=== PATIENT | male | born 1945 | race Caucasian/White ===

== ENCOUNTER → 2016-05-11 | Outpatient (CLI) | payer OTHER ==
[2016-05-11 12:23] LABS: ALT/SGPT 21 U/L (12-78); AST/SGOT 18 U/L (15-37); BLOOD UREA NITROGEN 20 mg/dl (7-18); BUN/CREATININE RATIO 16.3 (10-20); CALCIUM 8.7 mg/dl (8.5-10.1); CARBON DIOXIDE 27 mmol/L (21-32); CHLORIDE 106 mmol/L (98-107); CHOLESTEROL 225 mg/dl (0-200); CHOLESTEROL/HDL RATIO 5.6; GLUCOSE 89 mg/dl (70-99); HDL CHOLESTEROL 40 mg/dl; LDL CHOLESTEROL CALCULATED 157 mg/dl; POTASSIUM 4.3 mmol/L (3.5-5.1); SODIUM 140 mmol/L (136-145); TRIGLYCERIDES 139 mg/dl (0-150); VERY LOW DENSITY LIPOPROT CALC 28 mg/dl
== END | disposition home or self-care (01) ==
LOC: C.LAB1850 10:44
PROVIDERS: ATTEND Internal Medicine
DX: E78.5 Hyperlipidemia, unspecified (principal); Z12.5 Encounter for screening for malignant neoplasm of prostate; E03.9 Hypothyroidism, unspecified; I10 Essential (primary) hypertension

== ENCOUNTER → 2017-01-08 | Outpatient (CLI) | payer OTHER ==
[2017-01-08 12:26] LABS: ALT/SGPT 26 U/L (12-78); BLOOD UREA NITROGEN 21 mg/dl (7-18); BUN/CREATININE RATIO 19.8 (10-20); CALCIUM 8.8 mg/dl (8.5-10.1); CARBON DIOXIDE 26 mmol/L (21-32); CHLORIDE 106 mmol/L (98-107); CREATININE 1.07 mg/dl (0.60-1.40); GLUCOSE 95 mg/dl (70-99); HDL CHOLESTEROL 33 mg/dl; POTASSIUM 4.5 mmol/L (3.5-5.1); SODIUM 138 mmol/L (136-145)
[2017-01-08 12:38] LABS: AST/SGOT 12 U/L (15-37); CHOLESTEROL 255 mg/dl (0-200); CHOLESTEROL/HDL RATIO 7.7; LDL CHOLESTEROL CALCULATED 147 mg/dl; TRIGLYCERIDES 374 mg/dl (0-150); VERY LOW DENSITY LIPOPROT CALC 75 mg/dl
== END | disposition home or self-care (01) ==
LOC: C.LAB1850 10:24
PROVIDERS: ATTEND Internal Medicine
DX: E03.9 Hypothyroidism, unspecified (principal); I10 Essential (primary) hypertension; E78.5 Hyperlipidemia, unspecified

== ENCOUNTER → 2017-06-07 | Outpatient (CLI) | payer OTHER ==
[2017-06-07 12:50] LABS: ALT/SGPT 33 U/L (12-78); AST/SGOT 21 U/L (15-37); BLOOD UREA NITROGEN 18 mg/dl (7-18); CALCIUM 8.9 mg/dl (8.5-10.1); CARBON DIOXIDE 25 mmol/L (21-32); CHOLESTEROL 284 mg/dl (0-200); GLUCOSE 94 mg/dl (70-99); SODIUM 137 mmol/L (136-145)
[2017-06-07 13:02] LABS: LDL CHOLESTEROL CALCULATED 202 mg/dl
== END | disposition home or self-care (01) ==
LOC: C.LAB1850 10:03
PROVIDERS: ATTEND Internal Medicine
DX: I10 Essential (primary) hypertension (principal); E03.9 Hypothyroidism, unspecified; E78.5 Hyperlipidemia, unspecified; Z12.5 Encounter for screening for malignant neoplasm of prostate

== ENCOUNTER → 2017-06-11 | Outpatient (CLI) | payer OTHER | END | disposition home or self-care (01) | LOC: C.LAB1850 15:46 | PROVIDERS: ATTEND Internal Medicine | DX: R35.0 Frequency of micturition (principal) ==

== ENCOUNTER 2019-05-14 16:11 | Inpatient (IN) ==
[2019-05-14] MEDS ORDERED: AZITHROMYCIN 500 MG in DEXTROSE 5% 250 ML IV ONE (16:31)
[2019-05-14] MEDS ORDERED: cefTRIAXone SODIUM 2,000 MG/70 ML BAG IV STA (16:31)
[2019-05-14] MEDS ORDERED: ALBUT/IPRATROP 3MG/0.5MG NEB 3 ML VIAL NEB STA (16:31)
[2019-05-14] MEDS ORDERED: SODIUM CHLORIDE 0.9% 1000ML 1,000 ML IV ONE (16:31)
--- NOTE | 2019-05-14 16:37 | Emergency Department Note ---
ED Visit Note Patient seen and examined in conjunction with Dr. Schwab. Please see his note for medical decision making. . Resident Activity Tracking Resident Involvement: Resident Care Provided Care Provided: Adult ED
--- NOTE | 2019-05-14 16:51 | XRay Report ---
SINGLE VIEW CHEST CLINICAL HISTORY: Sepsis FINDINGS: An AP, portable, upright chest radiograph is compared to study dated 06/12/2012. The examina tion is degraded by portable technique and patient rotation. The heart is enlarged. There is pulmonar y vascular congestion. Trace pleural effusions are identified. There are bibasilar airspace opacities , left greater than right. No pneumothorax is seen. The skeletal structures are osteopenic. The bony thorax is grossly intact. IMPRESSION: 1. Cardiomegaly with evidence of congestive failure. 2. Trace pleural effusions. 3. There are bibasilar airspace opacities which likely represent atelectasis. Correlate clinically fo r evidence of a superimposed infectious/inflammatory pneumonitis. ACT 112: Negative or not required by law. Electronically signed by: Miguel Roman M.D. 05/14/2019 4:50 PM
[2019-05-14 16:57] LABS: Basophils # (auto) 0.03 K/uL (0-0.2); Basophils % (auto) 0.2 %; Eosinophils # (auto) 0.04 K/uL (0-0.5); Eosinophils % (auto) 0.3 %; Hematocrit (blood only) 43.3 % (42-52); Hemoglobin 14.8 g/dL (14.0-18.0); Immature Granulocytes # (auto) 0.13 K/uL (0.00-0.02); Immature Granulocytes % (auto) 0.9 %; Lymphocytes # (auto) 2.45 K/uL (1.2-3.4); Lymphocytes % (auto) 16.5 %; Mean Corpuscular Hemoglobin 31.8 pg (25-34); Mean Corpuscular Hgb Conc 34.2 g/dL (32-36); Mean Corpuscular Volume 92.9 fL (80-100); Mean Platelet Volume 9.7 fL (7.4-10.4); Monocytes # (auto) 1.27 K/uL (0.11-0.59); Monocytes % (auto) 8.6 %; Neutrophils # (auto) 10.89 K/uL (1.4-6.5); Neutrophils % (auto) 73.5 %; Platelet Count 236 K/uL (130-400); RDW Coefficient of Variation 13.5 % (11.5-14.5); RDW Standard Deviation 45.8 fL (36.4-46.3); Red Blood Count 4.66 M/uL (4.7-6.1); White Blood Count 14.81 K/uL (4.8-10.8)
[2019-05-14 17:09] LABS: INR 1.1 (0.9-1.1); Partial Thromboplastin Ratio 1.1; Partial Thromboplastin Time 29.4 Seconds (21.0-31.0); Prothrombin Time 11.5 Seconds (9.0-12.0)
[2019-05-14 17:13] LABS: Alanine Aminotransferase 53 U/L (12-78); Albumin Level 2.9 gm/dl (3.4-5.0); Aspartate Aminotransferase 55 U/L (15-37); BUN Creatinine Ratio 21.4 (10-20); Blood Urea Nitrogen 24 mg/dl (7-18); Calcium 8.7 mg/dl (8.5-10.1); Carbon Dioxide 25 mmol/L (21-32); Chloride 102 mmol/L (98-107); Creatinine Clr Calc Pharmacy 63.1 ml/min; Est GFR (African American) 72.5; Est GFR (Non-African American) 62.6; Glucose 121 mg/dl (70-99); Magnesium 2.4 mg/dl (1.8-2.4); Potassium 3.9 mmol/L (3.5-5.1); Sodium 134 mmol/L (136-145)
[2019-05-14 17:18] LABS: Albumin Globulin Ratio 0.5 (0.9-2); Alkaline Phosphatase 130 U/L (45-117); Bilirubin,Total 1.1 mg/dl (0.2-1); Globulin 5.4 gm/dl (2.5-4.0); Total Protein 8.3 gm/dl (6.4-8.2); Troponin I < 0.015 ng/ml (0-0.045)
[2019-05-14 17:32] LABS: Influenza A virus by PCR Neg for Influ A (Neg); Influenza B virus by PCR Neg for Influ B (Neg)
[2019-05-14 17:54] LABS: Base Excess VBG -0.6 mEq/L; Oxygen Saturation VBG 90.5 %; pH VBG 7.47 (7.36-7.41)
[2019-05-14 20:14] LABS: Appearance Urine Cloudy (Clear); Bacteria Urine Automated Negative (Negative); Blood Urine 2+ (Negative); Color Urine Dark Yellow; Epithelial Cell Urine Auto 20-30 /lpf (0-5); Glucose Urine UA Negative (Negative); Ketones Urine Trace (Negative); Leukocyte Esterase Urine Negative (Negative); Nitrite Urine Positive (Negative); Protein Urine 2+ (Negative); RBC Urine Automated 0-4 /hpf (0-4); Specific Gravity Urine 1.035 (1.000-1.030); Urobilinogen Urine Negative (Negative)
[2019-05-14 20:30] LABS: Bilirubin Urine Negative (Negative); Ictotest Urine Negative (Negative)
[2019-05-14 20:34] LABS: Mucus Urine Present (None Prsent)
[2019-05-14] MEDS ORDERED: ACETAMINOPHEN 325 MG TAB PO PRN (21:05)
[2019-05-14] MEDS ORDERED: ALBUTEROL 0.083% NEBU SOLN 3 ML VIAL NEB PRN (21:05)
--- NOTE | 2019-05-14 21:06 | Emergency Department Note ---
Entered by Qing Landers acting as a scribe for Hugo Schwab DO History of Present Illness General Chief complaint: Cough Stated complaint: COUGH - FEVER - TREMBLES Time Seen by Provider: 05/14/19 16:17 Source: family History of Present Illness Provider complaint: cough Onset (ago): day(s) 5 Location: chest Pain Consistency: + other (worsening) Maximum Pain Intensity: 0 Relieved By: + none Associated symptoms: + fever/chills, + shortness of breath and + other (+sore throat) The patient is a 74 year old male who presents to the Emergency Room with complaints of worsening cough since Sunday and a fever since Sunday. The patient reports that the patient has been experiencing shortness of breath for the past 5-6 hours. She mentions that the patient has been complaining of a sore throat. She notes that the patient does not wear oxygen at home. She mentions that the patient has a history of [place] 3 years ago. Patient denies any other exacerbating or remitting factors. Home Medications Home Medications Medication Instructions Recorded Confirmed Type omega-3 acid ethyl esters 1 gram 1 cap PO DAILY cap 09/17/18 05/14/19 History capsule levothyroxine 75 mcg tablet 75 mcg PO DAILY #90 tab 05/05/19 05/14/19 Rx aspirin [Aspirin Low Dose] 81 mg PO DAILY 05/14/19 05/14/19 History Allergies Allergy/AdvReac Type Severity Reaction Status Date / Time pravastatin Allergy Mild Cramping Verified 05/05/19 11:04 of the Muscles Past Med/Surg History Medical History Atherosclerotic heart disease of [place] coronary artery without angina pectoris (Acute) Benign essential tremor (Acute) Hyperlipidemia (Acute) Hypertension (Acute) Hypothyroidism (Acute) Tremor (Acute) Surgical History Hx of appendectomy Hx of hernia repair Hx of transurethral resection of prostate Family History Mother Hypotension Benign essential tremor Family/Other Benign essential tremor Child Social History Preferred Language: Haitian Communication Tools: IPad Visual Impairment: No Limitations Hearing Ability: Normal marital status: Current Living Situation: Spouse current occupational status: retired Feels Safe at Home: Yes Smoking Status: Never smoker Second Hand Exposure: No ; Hx Alcohol Use: No Hx Substance Use: No Physical Activity Frequency: 1-2 Times per Week Seatbelt Use: always Review of Systems See HPI for pertinent positives & negatives. and A total of 10 systems reviewed and were otherwise negative Physical Exam Vital Signs Vital Signs - 24 hr 05/14/19 16:13 05/14/19 16:25 05/14/19 16:27 Temperature 36.8 C Temperature Source Oral Pulse Rate 102 H 97 H Pulse Rate [Right Finger] Pulse Rate from SpO2 Sensor 98 H Respiratory Rate 24 46 H Respiratory Effort / Characteristics Non-Labored Respiratory Depth Normal Blood Pressure 190/90 H 218/99 H Blood Pressure Mean 123 115 Pulse Oximetry 87 L 92 93 Oxygen Delivery Method Room Air Nasal Cannula Nasal Cannula Oxygen Flow Rate 3 3 Fraction of Inspired Oxygen Sepsis Recent Fever Within 48 Hours No Sepsis Action Taken by Nursing No Action Required 05/14/19 16:31 05/14/19 16:50 05/14/19 17:05 Temperature Temperature Source Pulse Rate 96 H Pulse Rate [Right Finger] 94 H 94 H Pulse Rate from SpO2 Sensor 96 H Respiratory Rate 34 H 28 H 26 H Respiratory Effort / Characteristics Spontaneous Accessory Muscle Use Short of Breath Spontaneous Short of Breath Respiratory Depth Blood Pressure 177/91 H Blood Pressure Mean 117 Pulse Oximetry 92 95 95 Oxygen Delivery Method Nasal Cannula High Flow Nasal Cannula High Flow Nasal Cannula Oxygen Flow Rate 3 40 40 Fraction of Inspired Oxygen 50 50 Sepsis Recent Fever Within 48 Hours Sepsis Action Taken by Nursing 05/14/19 17:27 05/14/19 17:30 05/14/19 18:01 Temperature Temperature Source Pulse Rate 88 89 82 Pulse Rate [Right Finger] Pulse Rate from SpO2 Sensor 91 H 93 H 84 Respiratory Rate 37 H 39 H 35 H Respiratory Effort / Characteristics Respiratory Depth Blood Pressure 149/82 H 152/85 H 150/75 H Blood Pressure Mean 107 106 93 Pulse Oximetry 93 93 93 Oxygen Delivery Method High Flow Nasal Cannula High Flow Nasal Cannula Oxygen Flow Rate 40 Fraction of Inspired Oxygen Sepsis Recent Fever Within 48 Hours Sepsis Action Taken by Nursing 05/14/19 18:32 05/14/19 19:01 05/14/19 19:30 Temperature Temperature Source Pulse Rate 79 79 74 Pulse Rate [Right Finger] Pulse Rate from SpO2 Sensor 80 80 75 Respiratory Rate 27 H 51 H 38 H Respiratory Effort / Characteristics Respiratory Depth Blood Pressure 143/75 H 158/86 H 146/79 H Blood Pressure Mean 111 115 109 Pulse Oximetry 93 94 93 Oxygen Delivery Method High Flow Nasal Cannula High Flow Nasal Cannula Oxygen Flow Rate 30 30 Fraction of Inspired Oxygen Sepsis Recent Fever Within 48 Hours Sepsis Action Taken by Nursing 05/14/19 20:00 05/14/19 20:06 05/14/19 20:30 Temperature Temperature Source Pulse Rate 80 80 Pulse Rate [Right Finger] 81 Pulse Rate from SpO2 Sensor 81 81 Respiratory Rate 50 H 22 39 H Respiratory Effort / Characteristics Non-Labored Spontaneous Respiratory Depth Blood Pressure 150/88 H 153/76 H Blood Pressure Mean 108 93 Pulse Oximetry 94 94 93 Oxygen Delivery Method High Flow Nasal Cannula High Flow Nasal Cannula Oxygen Flow Rate 30 30 Fraction of Inspired Oxygen 40 Sepsis Recent Fever Within 48 Hours Sepsis Action Taken by Nursing GENERAL: alert, sitting up in bed, moderate distress, dyspneic EYE EXAM: normal conjunctiva OROPHARYNX: no exudate, no erythema, lips, buccal mucosa, and tongue normal and mucous membranes are moist NECK: supple, no nuchal rigidity, no adenopathy, non-tender LUNGS: Rhonchi in bilateral bases. Normal chest wall mechanics HEART: Tachycardic, S1 normal and S2 normal ABDOMEN: abdomen soft, non-tender, normo-active bowel sounds, no masses, no rebound or guarding. BACK: Back is symmetrical on inspection and there is no deformity, no midline tenderness, no CVA tenderness. SKIN: no rashes and no bruising UPPER EXTREMITIES: upper extremities are grossly normal. LOWER EXTREMITIES: No pitting edema. NEURO EXAM: Normal sensorium, cranial nerves II-XII grossly intact, normal speech, no gross weakness of arms, no gross weakness of legs. Course Course ED COURSE: Vital signs were reviewed and showed hypertensive and tachycardic. The patients medical record was reviewed The above diagnostic studies were performed and reviewed. ED treatments and interventions as stated above. 1619: The patient was seen and evaluated by the Resident Physician, Dr. Flores, at this time. History and physical were discussed with me. 1639: The patient was evaluated in room A3. A complete history and physical examination was performed. 1738: I reviewed the patient's case with Dr. Snell- [facility]. She will evaluate the patient for further management. 1745: Upon reevaluation, the patient is resting comfortable. I discussed my findings with the patient's and she understands and agrees with the treatment plan. Based on the patients age, coexisting illnesses, exam and lab findings the decision to treat as an inpatient was made. The patient remained stable while under my care. The patient will be evaluated for further management. Administered Medications Discontinued Medications Albuterol (Duoneb) 3 ml NEB NOW STA Stop: 05/14/19 16:32 Last Admin: 05/14/19 17:02 Dose: 3 ml Documented by: [id number] Sodium Chloride (Nss 1000ml) 1,000 mls @ 999 mls/hr IV .Q1H1M ONE Stop: 05/14/19 17:31 Last Admin: 05/14/19 17:41 Dose: Not Given Documented by: [id number] Ceftriaxone Sodium (Rocephin) 2,000 mg in 70 mls @ 140 mls/hr IV NOW STA Stop: 05/14/19 17:00 Last Infusion: 05/14/19 17:39 Dose: 0 mls/hr Documented by: [id number] Admin: 05/14/19 17:11 Dose: 140 mls/hr Documented by: [id number] Azithromycin 500 mg/ Dextrose 255 mls @ 125 mls/hr IV ONE ONE Stop: 05/14/19 18:33 Last Infusion: 05/14/19 20:19 Dose: 0 mls/hr Documented by: [id number] Admin: 05/14/19 17:41 Dose: 125 mls/hr Documented by: [id number] Critical Care Time Critical Care Time: Yes Total Critical Care Time: 40 I have personally spent 40 minutes of critical care time in the direct management of this patient. This includes bedside care, interpretation of diagnostic studies, and testing, discussion with consultants, patient, and family members, and other required patient management activities. This 40 minutes is in excess of all separately billable procedures. Medical Decision Making Differential Diagnosis Differential diagnoses includes but is not limited to pneumonia, bronchitis, COPD/Asthma exacerbation, pneumothorax, pulmonary embolism, congestive heart failure, acute coronary syndrome Medical Records Attestation: I reviewed the patient's medical records. Home Medications Current Medication List: was personally reviewed by me Laboratory Data Attestation: I reviewed the patient's lab results. Result diagrams: 05/14/19 16:40 05/14/19 16:40 Lab Results 05/14/19 05/14/19 05/14/19 Range/Units 16:39 16:40 16:40 WBC 14.81 H (4.8-10.8) K/uL RBC 4.66 L (4.7-6.1) M/uL Hgb 14.8 (14.0-18.0) g/dL Hct 43.3 (42-52) % MCV 92.9 (80-100) fL MCH 31.8 (25-34) pg MCHC 34.2 (32-36) g/dL RDW Std Deviation 45.8 (36.4-46.3) fL RDW Coeff of Mata 13.5 (11.5-14.5) % Plt Count 236 (130-400) K/uL MPV 9.7 (7.4-10.4) fL Immature Gran % (Auto) 0.9 % Neut % (Auto) 73.5 % Lymph % (Auto) 16.5 % Walsh % (Auto) 8.6 % Eos % (Auto) 0.3 % Baso % (Auto) 0.2 % Immature Gran # (Auto) 0.13 H (0.00-0.02) K/uL Neut # (Auto) 10.89 H (1.4-6.5) K/uL Lymph # (Auto) 2.45 (1.2-3.4) K/uL Walsh # (Auto) 1.27 H (0.11-0.59) K/uL Eos # (Auto) 0.04 (0-0.5) K/uL Baso # (Auto) 0.03 (0-0.2) K/uL PT 11.5 (9.0-12.0) Seconds INR 1.1 (0.9-1.1) APTT 29.4 (21.0-31.0) Seconds PTT Ratio 1.1 VBG pH (7.36-7.41) VBG pCO2 (38-50) mmHg VBG pO2 mmHg VBG HCO3 mmol/L VBG O2 Saturation % VBG Base Excess mEq/L Barometric Pressure mm/Hg Sodium (136-145) mmol/L Potassium (3.5-5.1) mmol/L Chloride (98-107) mmol/L Carbon Dioxide (21-32) mmol/L Anion Gap (3-11) BUN (7-18) mg/dl Creatinine (0.6-1.4) mg/dl Est Cr Clr Drug Dosing ml/min Est GFR ( Amer) Est GFR (Non-Af Amer) BUN/Creatinine Ratio (10-20) Glucose (70-99) mg/dl Lactate (0.4-2.0) mmol/L Calcium (8.5-10.1) mg/dl Magnesium (1.8-2.4) mg/dl Total Bilirubin (0.2-1) mg/dl AST (15-37) U/L ALT (12-78) U/L Alkaline Phosphatase (45-117) U/L Troponin I (0-0.045) ng/ml NT-Pro-B Natriuret Pep (0-900) pg/ml Total Protein (6.4-8.2) gm/dl Albumin (3.4-5.0) gm/dl Globulin (2.5-4.0) gm/dl Albumin/Globulin Ratio (0.9-2) Procalcitonin (0-0.5) ng/ml Urine Color Urine Appearance (Clear) Urine pH (4.5-7.5) Ur Specific [place] (1.000-1.030) Urine Protein (Negative) Urine Glucose (UA) (Negative) Urine Ketones (Negative) Urine Blood (Negative) Urine Nitrite (Negative) Urine Bilirubin (Negative) Urine Urobilinogen (Negative) Ur Leukocyte Esterase (Negative) Urine WBC (Auto) (0-5) /hpf Urine RBC (Auto) (0-4) /hpf U Hyaline Cast (Auto) (0-5) /lpf U Epithel Cells (Auto) (0-5) /lpf Urine Bacteria (Auto) (Negative) Granular Casts (0) /lpf Urine Mucus (None Prsent) Urine Yeast Influenza Type A (PCR) Neg for Influ A (Neg) Influenza Type B (PCR) Neg for Influ B (Neg) 05/14/19 05/14/19 05/14/19 Range/Units 16:40 16:40 16:40 WBC (4.8-10.8) K/uL RBC (4.7-6.1) M/uL Hgb (14.0-18.0) g/dL Hct (42-52) % MCV (80-100) fL MCH (25-34) pg MCHC (32-36) g/dL RDW Std Deviation (36.4-46.3) fL RDW Coeff of Mata (11.5-14.5) % Plt Count (130-400) K/uL MPV (7.4-10.4) fL Immature Gran % (Auto) % Neut % (Auto) % Lymph % (Auto) % Walsh % (Auto) % Eos % (Auto) % Baso % (Auto) % Immature Gran # (Auto) (0.00-0.02) K/uL Neut # (Auto) (1.4-6.5) K/uL Lymph # (Auto) (1.2-3.4) K/uL Walsh # (Auto) (0.11-0.59) K/uL Eos # (Auto) (0-0.5) K/uL Baso # (Auto) (0-0.2) K/uL PT (9.0-12.0) Seconds INR (0.9-1.1) APTT (21.0-31.0) Seconds PTT Ratio VBG pH (7.36-7.41) VBG pCO2 (38-50) mmHg VBG pO2 mmHg VBG HCO3 mmol/L VBG O2 Saturation % VBG Base Excess mEq/L Barometric Pressure mm/Hg Sodium 134 L (136-145) mmol/L Potassium 3.9 (3.5-5.1) mmol/L Chloride 102 (98-107) mmol/L Carbon Dioxide 25 (21-32) mmol/L Anion Gap 7.0 (3-11) BUN 24 H (7-18) mg/dl Creatinine 1.14 (0.6-1.4) mg/dl Est Cr Clr Drug Dosing 63.1 ml/min Est GFR ( Amer) 72.5 Est GFR (Non-Af Amer) 62.6 BUN/Creatinine Ratio 21.4 H (10-20) Glucose 121 H (70-99) mg/dl Lactate 2.1 H* (0.4-2.0) mmol/L Calcium 8.7 (8.5-10.1) mg/dl Magnesium 2.4 (1.8-2.4) mg/dl Total Bilirubin 1.1 H (0.2-1) mg/dl AST 55 H (15-37) U/L ALT 53 (12-78) U/L Alkaline Phosphatase 130 H (45-117) U/L Troponin I < 0.015 (0-0.045) ng/ml NT-Pro-B Natriuret Pep 540 (0-900) pg/ml Total Protein 8.3 H (6.4-8.2) gm/dl Albumin 2.9 L (3.4-5.0) gm/dl Globulin 5.4 H (2.5-4.0) gm/dl Albumin/Globulin Ratio 0.5 L (0.9-2) Procalcitonin (0-0.5) ng/ml Urine Color Urine Appearance (Clear) Urine pH (4.5-7.5) Ur Specific [place] (1.000-1.030) Urine Protein (Negative) Urine Glucose (UA) (Negative) Urine Ketones (Negative) Urine Blood (Negative) Urine Nitrite (Negative) Urine Bilirubin (Negative) Urine Urobilinogen (Negative) Ur Leukocyte Esterase (Negative) Urine WBC (Auto) (0-5) /hpf Urine RBC (Auto) (0-4) /hpf U Hyaline Cast (Auto) (0-5) /lpf U Epithel Cells (Auto) (0-5) /lpf Urine Bacteria (Auto) (Negative) Granular Casts (0) /lpf Urine Mucus (None Prsent) Urine Yeast Influenza Type A (PCR) (Neg) Influenza Type B (PCR) (Neg) 05/14/19 05/14/19 05/14/19 Range/Units 16:40 17:38 19:12 WBC (4.8-10.8) K/uL RBC (4.7-6.1) M/uL Hgb (14.0-18.0) g/dL Hct (42-52) % MCV (80-100) fL MCH (25-34) pg MCHC (32-36) g/dL RDW Std Deviation (36.4-46.3) fL RDW Coeff of Mata (11.5-14.5) % Plt Count (130-400) K/uL MPV (7.4-10.4) fL Immature Gran % (Auto) % Neut % (Auto) % Lymph % (Auto) % Walsh % (Auto) % Eos % (Auto) % Baso % (Auto) % Immature Gran # (Auto) (0.00-0.02) K/uL Neut # (Auto) (1.4-6.5) K/uL Lymph # (Auto) (1.2-3.4) K/uL Walsh # (Auto) (0.11-0.59) K/uL Eos # (Auto) (0-0.5) K/uL Baso # (Auto) (0-0.2) K/uL PT (9.0-12.0) Seconds INR (0.9-1.1) APTT (21.0-31.0) Seconds PTT Ratio VBG pH 7.47 H (7.36-7.41) VBG pCO2 31 L (38-50) mmHg VBG pO2 55 mmHg VBG HCO3 22 mmol/L VBG O2 Saturation 90.5 % VBG Base Excess -0.6 mEq/L Barometric Pressure 740.1 mm/Hg Sodium (136-145) mmol/L Potassium (3.5-5.1) mmol/L Chloride (98-107) mmol/L Carbon Dioxide (21-32) mmol/L Anion Gap (3-11) BUN (7-18) mg/dl Creatinine (0.6-1.4) mg/dl Est Cr Clr Drug Dosing ml/min Est GFR ( Amer) Est GFR (Non-Af Amer) BUN/Creatinine Ratio (10-20) Glucose (70-99) mg/dl Lactate 2.5 H* (0.4-2.0) mmol/L Calcium (8.5-10.1) mg/dl Magnesium (1.8-2.4) mg/dl Total Bilirubin (0.2-1) mg/dl AST (15-37) U/L ALT (12-78) U/L Alkaline Phosphatase (45-117) U/L Troponin I (0-0.045) ng/ml NT-Pro-B Natriuret Pep (0-900) pg/ml Total Protein (6.4-8.2) gm/dl Albumin (3.4-5.0) gm/dl Globulin (2.5-4.0) gm/dl Albumin/Globulin Ratio (0.9-2) Procalcitonin 0.84 H (0-0.5) ng/ml Urine Color Urine Appearance (Clear) Urine pH (4.5-7.5) Ur Specific [place] (1.000-1.030) Urine Protein (Negative) Urine Glucose (UA) (Negative) Urine Ketones (Negative) Urine Blood (Negative) Urine Nitrite (Negative) Urine Bilirubin (Negative) Urine Urobilinogen (Negative) Ur Leukocyte Esterase (Negative) Urine WBC (Auto) (0-5) /hpf Urine RBC (Auto) (0-4) /hpf U Hyaline Cast (Auto) (0-5) /lpf U Epithel Cells (Auto) (0-5) /lpf Urine Bacteria (Auto) (Negative) Granular Casts (0) /lpf Urine Mucus (None Prsent) Urine Yeast Influenza Type A (PCR) (Neg) Influenza Type B (PCR) (Neg) 05/14/19 Range/Units 19:55 WBC (4.8-10.8) K/uL RBC (4.7-6.1) M/uL Hgb (14.0-18.0) g/dL Hct (42-52) % MCV (80-100) fL MCH (25-34) pg MCHC (32-36) g/dL RDW Std Deviation (36.4-46.3) fL RDW Coeff of Mata (11.5-14.5) % Plt Count (130-400) K/uL MPV (7.4-10.4) fL Immature Gran % (Auto) % Neut % (Auto) % Lymph % (Auto) % Walsh % (Auto) % Eos % (Auto) % Baso % (Auto) % Immature Gran # (Auto) (0.00-0.02) K/uL Neut # (Auto) (1.4-6.5) K/uL Lymph # (Auto) (1.2-3.4) K/uL Walsh # (Auto) (0.11-0.59) K/uL Eos # (Auto) (0-0.5) K/uL Baso # (Auto) (0-0.2) K/uL PT (9.0-12.0) Seconds INR (0.9-1.1) APTT (21.0-31.0) Seconds PTT Ratio VBG pH (7.36-7.41) VBG pCO2 (38-50) mmHg VBG pO2 mmHg VBG HCO3 mmol/L VBG O2 Saturation % VBG Base Excess mEq/L Barometric Pressure mm/Hg Sodium (136-145) mmol/L Potassium (3.5-5.1) mmol/L Chloride (98-107) mmol/L Carbon Dioxide (21-32) mmol/L Anion Gap (3-11) BUN (7-18) mg/dl Creatinine (0.6-1.4) mg/dl Est Cr Clr Drug Dosing ml/min Est GFR ( Amer) Est GFR (Non-Af Amer) BUN/Creatinine Ratio (10-20) Glucose (70-99) mg/dl Lactate (0.4-2.0) mmol/L Calcium (8.5-10.1) mg/dl Magnesium (1.8-2.4) mg/dl Total Bilirubin (0.2-1) mg/dl AST (15-37) U/L ALT (12-78) U/L Alkaline Phosphatase (45-117) U/L Troponin I (0-0.045) ng/ml NT-Pro-B Natriuret Pep (0-900) pg/ml Total Protein (6.4-8.2) gm/dl Albumin (3.4-5.0) gm/dl Globulin (2.5-4.0) gm/dl Albumin/Globulin Ratio (0.9-2) Procalcitonin (0-0.5) ng/ml Urine Color Dark Yellow Urine Appearance Cloudy A (Clear) Urine pH 5.0 (4.5-7.5) Ur Specific [place] 1.035 H (1.000-1.030) Urine Protein 2+ H (Negative) Urine Glucose (UA) Negative (Negative) Urine Ketones Trace H (Negative) Urine Blood 2+ H (Negative) Urine Nitrite Positive A (Negative) Urine Bilirubin Negative (Negative) Urine Urobilinogen Negative (Negative) Ur Leukocyte Esterase Negative (Negative) Urine WBC (Auto) 1-5 (0-5) /hpf Urine RBC (Auto) 0-4 (0-4) /hpf U Hyaline Cast (Auto) 1-5 (0-5) /lpf U Epithel Cells (Auto) 20-30 H (0-5) /lpf Urine Bacteria (Auto) Negative (Negative) Granular Casts 1-5 H (0) /lpf Urine Mucus Present A (None Prsent) Urine Yeast Not Reportable Influenza Type A (PCR) (Neg) Influenza Type B (PCR) (Neg) Imaging Data Radiologist's Impression: Radiology results as stated below per my review and the radiologist's interpretation: SINGLE VIEW CHEST CLINICAL HISTORY: Sepsis FINDINGS: An AP, portable, upright chest radiograph is compared to study dated 06/12/2012. The examination is degraded by portable technique and patient rotation. The heart is enlarged. There is pulmonary vascular congestion. Trace pleural effusions are identified. There are bibasilar airspace opacities, left greater than right. No pneumothorax is seen. The skeletal structures are osteopenic. The bony thorax is grossly intact. IMPRESSION: 1. Cardiomegaly with evidence of congestive failure. 2. Trace pleural effusions. 3. There are bibasilar airspace opacities which likely represent atelectasis. Correlate clinically for evidence of a superimposed infectious/inflammatory pneumonitis. ACT 112: Negative or not required by law. Electronically signed by: Miguel Roman M.D. 05/14/2019 4:50 PM ECG Data Attestation: I personally reviewed and interpreted this ECG as follows: Indication: + SOB/dyspnea Rate (beats per minute): 94 Rhythm: + sinus rhythm (poor baseline) ECG Intervals/blocks: + Right Bundle branch block ECG [place]: + Right axis deviation ECG Findings: no PVCs Blood Pressure Blood Pressure Findings: Elevated blood pressure Blood Pressure Disposition: further management by hospitalist FABIENNE Narrative Patient is a 74-year-old male who presents the ER for cough and shortness of b reath. Fevers and a cough have been present for the past 3 days. He has been getting more more short of breath. IV was established blood work was obtained and shows a leukocytosis of 14,000. No significant anemia. INR unremarkable. VBG with a CO2 slightly low at 31. BMP with a slightly elevated glucose. Lactate was elevated 2.5. Bilirubin LFTs were unremarkable. Patient was covered with broad-spectrum Rocephin and azithromycin as it did fever this is most consistent with a pneumonia. Chest x-ray does support slight volume overload in combination with pulmonary infiltrates consistent with a pneumonia. Influenza was negative. Patient was given judicious fluids due to the volume ov erload on the chest x-ray. Updated and discussed with the hospitalist. He was on high flow throughout his stay in the ER due to his respiratory distress. This did improve significantly. Impression & Plan Hypoxia, Pneumonia, CHF (congestive heart failure) Discharge Plan Visit Data Chief Complaint: Cough Stated Complaint: COUGH - FEVER - TREMBLES ED Provider: Hugo Schwab ED Midlevel Provider: Apolinar Flores Discharge Problem: Hypoxia, Pneumonia, CHF (congestive heart failure) Patient Disposition: Being Evaluated by Hospitalist Discharge Instructions Interventions: ED Discharge Assessment Last Done: 05/14/19 20:39 Discharge Problem: Pneumonia Qualifiers: Pneumonia type: due to unspecified organism Laterality: unspecified laterality Lung location: unspecified part of lung Qualified Code(s): J18.9 - Pneumonia, unspecified organism CHF (congestive heart failure) Qualifiers: Heart failure type: unspecified Heart failure chronicity: unspecified Qualified Code(s): I50.9 - Heart failure, unspecified The scribe's documentation has been prepared under my direction and personally reviewed by me in its entirety. I confirm that the note above accurately reflects all work, treatment, procedures, and medical decision making performed by me.
[2019-05-14] MEDS: guaiFENesin 600 MG TABCR PO SCH (21:53)
[2019-05-14] MEDS: BENZONATATE 100 MG CAPSULE PO SCH (21:53)
--- NOTE | 2019-05-14 22:07 | History & Physical Report ---
Date of Service May 14, 2019 Assessment & Plan (1) Pneumonia: 74-year-old male with hypertension/hyperlipidemia/CAD, no known lung disease or history of smoking. He presents today with 45 days of cough/cold/fever/chills, acute worsening of shortness of breath and rigors developed prior to admission today. Patient with respiratory distress on arrival to the ER requiring supplemental oxygen via Vapotherm. Strongly suspect infectious process, multifocal pneumonia. Patient with s ubjective fever/chills/rigors, tachycardia, tachypnea, leukocytosis with WBC = 14.8 with neutrophil predominance and bands, elevated lactate = 2.5, elevated procalcitonin = 0.84. Influenza negative. VBG respiratory alkalosis and hypoxia, 7.4 10/23// on supplemental oxygen Portable chest x-ray with suspected cardiomegaly, diffuse bilateral airspace disease initially read as CHF (BNP = 540) -Admit to PCU -Follow cultures, blood and urine sent from ER Will initiate BiPAP for increased work of breathing, humidify O2 -Repeat ABG 1 hour after BiPAP Ceftriaxone 2 g IV daily, azithromycin for possible community-acquired pneumonia DuoNebs every 4 hours Albuterol as needed Mucinex 1200 mg p.o. twice daily Tessalon 3 times daily Incentive spirometry -Patient prognosis is guarded, low threshold for transfer to higher level of care Present on Admission?: Yes (2) Hypoxia: Most likely secondary to multifocal pneumonia as above BiPAP Repeat ABG in 1 hour Supplemental oxygen as needed. Titrate to maintain saturation greater than 94% Present on Admission?: Yes (3) Hypertension: Elevated blood pressure. Presently 156/72. Patient not presently on any medication for this. Continue to monitor. Patient's blood pressure spikes again will treat (4) Hyperlipidemia: Chronic. Patient presently not on any medication for this. Uncertain as to why Recommend outpatient follow-up Present on Admission?: Yes (5) Hypothyroidism: Patient with abnormal TFTs during previous visit -Repeat with a.m. 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 Stable. By report, patient had an NV 3 years ago. Presently denies chest pain. Troponin negative. No acute ischemic changes noted on EKG. Continue aspirin 81 mg p.o. daily Patient may benefit from statin and beta-randy therapy. Should be followed up outpatient Present on Admission?: Yes (7) Benign essential tremor: Chronic. F/E/N -normal saline at 125 mL/h x 1 L, monitor electrolytes and replete as needed, heart healthy diet as tolerated ProphylaxisLovenox Codeconditional Dispoadmit to PCU Present on Admission?: Yes History of Present Illness Chief Complaint: Shortness of breath Primary Care Provider: Kalyan Andrade MD Fidel Holden is a 74yo C male presenting with cough and SOB. Patient reports ongoing symptoms x 5 days to include cough/wheeze/SOB. Also with fevers to 38/39C and chills x 4 days. Cough is moist sounding but unable to produce sputum. Patient developed shaking chills today and worsening shortness of breath today which prompted him to come to the ER. He denies weight gain/edema/orthopnea Denies abdominal pain/nausea/vomiting but he did have some watery diarrhea over the last few days which has since resolved. No sick contacts or recent travel. On arrival to the ER patient afebrile, tachycardic at 102 bpm, hypertensive at 190/90, respiratory rate of 24 saturating 87% on room air. He was placed on nasal cannula 3 L with saturations of 92 to 93% and persistent tachypnea. He was subsequently placed on Vapotherm 30 L/min, FiO2 40%. Patient reports feeling better but is still visibly tachypneic. ER course: Ceftriaxone x2 g, azithromycin x500 mg, albuterol 3 mL neb Allergies Allergy/AdvReac Type Severity Reaction Status Date / Time pravastatin Allergy Mild Cramping Verified 05/05/19 11:04 of the Muscles Home Medications Home Medications Medication Instructions Recorded Confirmed Type omega-3 acid ethyl esters 1 gram 1 cap PO DAILY cap 09/17/18 05/14/19 History capsule levothyroxine 75 mcg tablet 75 mcg PO DAILY #90 tab 05/05/19 05/14/19 Rx aspirin [Aspirin Low Dose] 81 mg PO DAILY 05/14/19 05/14/19 History Past Med/Surg History Family History Mother Hypotension Benign essential tremor Family/Other Benign essential tremor Child Social History Preferred Language: Citizen Of [place] Communication Ability: Effective Communication Tools: IPad Visual Impairment: No Limitations Hearing Ability: Normal Esol Instructor Required: No Beliefs That Will Affect Care: None marital status: Current Living Situation: Spouse current occupational status: retired Feels Safe at Home: Yes Safety Concerns: Feels Safe At This Time Smoking Status: Never smoker Do You Dip or Chew Tobacco: No ; Second Hand Exposure: No ; Hx Alcohol Use: No Hx Substance Use: No Physical Activity Frequency: 1-2 Times per Week Seatbelt Use: always Review of Systems Review of Systems: All systems reviewed & are unremarkable except as noted in HPI & below Physical Exam Physical Exam: General: patient ill in appearance, speaks dominantly Citizen Of [place], awake alert and oriented x4, communicating clearly and following commands, is at bedside and assists with interpretation, resting tremor at baseline per Skin: warm, dry, intact, no rashes or lesions HEENT: NC/AT, PERRL, EOMI, anicteric sclera, conjunctiva without injection, external ear normal to inspection and nontender, nares patent, moist mucus membranes, dentition intact, no oropharyngeal lesions, neck supple, trachea midline, no LAD, no thyromegaly, no JVD Heart: +S1/S2, regular, no m/r/g Lungs: Diminished air entry bilaterally, diffusely coarse with scattered rhonchi in bilateral lung laguerre, diffuse end expiratory wheezing Abd: +BS, soft, NT/ND, no masses/organomegaly/ascites Ext: warm, 2+ pulses in UE/LE bilaterally, no clubbing/cyanosis or edema Neuro: nonfocal, patient AA&O x 4, speech intact, no facial droop, moving all extremities on command with equal strength 5/5 Results & Data Vital Signs (Past 12 Hours) Vital Signs Temp Pulse Pulse Resp BP BP BP 05/14/19 21:06 36.6 C 99 H 48 H 236/94 H 203/94 H 05/14/19 20:30 80 39 H 153/76 H 05/14/19 20:06 81 22 05/14/19 20:00 80 50 H 150/88 H 05/14/19 19:30 74 38 H 146/79 H 05/14/19 19:01 79 51 H 158/86 H 05/14/19 18:32 79 27 H 143/75 H 05/14/19 18:01 82 35 H 150/75 H 05/14/19 17:30 89 39 H 152/85 H 05/14/19 17:27 88 37 H 149/82 H 05/14/19 17:05 94 H 26 H 05/14/19 16:50 94 H 28 H 05/14/19 16:31 96 H 34 H 177/91 H 05/14/19 16:27 05/14/19 16:25 97 H 46 H 218/99 H 05/14/19 16:13 36.8 C 102 H 24 190/90 H Pulse Ox 05/14/19 21:06 93 05/14/19 20:30 93 05/14/19 20:06 94 05/14/19 20:00 94 05/14/19 19:30 93 05/14/19 19:01 94 05/14/19 18:32 93 05/14/19 18:01 93 05/14/19 17:30 93 05/14/19 17:27 93 05/14/19 17:05 95 05/14/19 16:50 95 05/14/19 16:31 92 05/14/19 16:27 93 05/14/19 16:25 92 05/14/19 16:13 87 L Laboratory Results Lab Results 05/14/19 05/14/19 05/14/19 Range/Units 16:39 16:40 16:40 WBC 14.81 H (4.8-10.8) K/uL RBC 4.66 L (4.7-6.1) M/uL Hgb 14.8 (14.0-18.0) g/dL Hct 43.3 (42-52) % MCV 92.9 (80-100) fL MCH 31.8 (25-34) pg MCHC 34.2 (32-36) g/dL RDW Std Deviation 45.8 (36.4-46.3) fL RDW Coeff of Mata 13.5 (11.5-14.5) % Plt Count 236 (130-400) K/uL MPV 9.7 (7.4-10.4) fL Immature Gran % (Auto) 0.9 % Neut % (Auto) 73.5 % Lymph % (Auto) 16.5 % [place] % (Auto) 8.6 % Eos % (Auto) 0.3 % Baso % (Auto) 0.2 % Immature Gran # (Auto) 0.13 H (0.00-0.02) K/uL Neut # (Auto) 10.89 H (1.4-6.5) K/uL Lymph # (Auto) 2.45 (1.2-3.4) K/uL [place] # (Auto) 1.27 H (0.11-0.59) K/uL Eos # (Auto) 0.04 (0-0.5) K/uL Baso # (Auto) 0.03 (0-0.2) K/uL PT 11.5 (9.0-12.0) Seconds INR 1.1 (0.9-1.1) APTT 29.4 (21.0-31.0) Seconds PTT Ratio 1.1 VBG pH (7.36-7.41) VBG pCO2 (38-50) mmHg VBG pO2 mmHg VBG HCO3 mmol/L VBG O2 Saturation % VBG Base Excess mEq/L Barometric Pressure mm/Hg Sodium (136-145) mmol/L Potassium (3.5-5.1) mmol/L Chloride (98-107) mmol/L Carbon Dioxide (21-32) mmol/L Anion Gap (3-11) BUN (7-18) mg/dl Creatinine (0.6-1.4) mg/dl Est Cr Clr Drug Dosing ml/min Est GFR ( Amer) Est GFR (Non-Af Amer) BUN/Creatinine Ratio (10-20) Glucose (70-99) mg/dl Lactate (0.4-2.0) mmol/L Calcium (8.5-10.1) mg/dl Magnesium (1.8-2.4) mg/dl Total Bilirubin (0.2-1) mg/dl AST (15-37) U/L ALT (12-78) U/L Alkaline Phosphatase (45-117) U/L Troponin I (0-0.045) ng/ml NT-Pro-B Natriuret Pep (0-900) pg/ml Total Protein (6.4-8.2) gm/dl Albumin (3.4-5.0) gm/dl Globulin (2.5-4.0) gm/dl Albumin/Globulin Ratio (0.9-2) Procalcitonin (0-0.5) ng/ml Urine Color Urine Appearance (Clear) Urine pH (4.5-7.5) Ur Specific [place] (1.000-1.030) Urine Protein (Negative) Urine Glucose (UA) (Negative) Urine Ketones (Negative) Urine Blood (Negative) Urine Nitrite (Negative) Urine Bilirubin (Negative) Urine Urobilinogen (Negative) Ur Leukocyte Esterase (Negative) Urine WBC (Auto) (0-5) /hpf Urine RBC (Auto) (0-4) /hpf U Hyaline Cast (Auto) (0-5) /lpf U Epithel Cells (Auto) (0-5) /lpf Urine Bacteria (Auto) (Negative) Granular Casts (0) /lpf Urine Mucus (None Prsent) Urine Yeast Influenza Type A (PCR) Neg for Influ A (Neg) Influenza Type B (PCR) Neg for Influ B (Neg) 05/14/19 05/14/19 05/14/19 Range/Units 16:40 16:40 16:40 WBC (4.8-10.8) K/uL RBC (4.7-6.1) M/uL Hgb (14.0-18.0) g/dL Hct (42-52) % MCV (80-100) fL MCH (25-34) pg MCHC (32-36) g/dL RDW Std Deviation (36.4-46.3) fL RDW Coeff of Mata (11.5-14.5) % Plt Count (130-400) K/uL MPV (7.4-10.4) fL Immature Gran % (Auto) % Neut % (Auto) % Lymph % (Auto) % [place] % (Auto) % Eos % (Auto) % Baso % (Auto) % Immature Gran # (Auto) (0.00-0.02) K/uL Neut # (Auto) (1.4-6.5) K/uL Lymph # (Auto) (1.2-3.4) K/uL [place] # (Auto) (0.11-0.59) K/uL Eos # (Auto) (0-0.5) K/uL Baso # (Auto) (0-0.2) K/uL PT (9.0-12.0) Seconds INR (0.9-1.1) APTT (21.0-31.0) Seconds PTT Ratio VBG pH (7.36-7.41) VBG pCO2 (38-50) mmHg VBG pO2 mmHg VBG HCO3 mmol/L VBG O2 Saturation % VBG Base Excess mEq/L Barometric Pressure mm/Hg Sodium 134 L (136-145) mmol/L Potassium 3.9 (3.5-5.1) mmol/L Chloride 102 (98-107) mmol/L Carbon Dioxide 25 (21-32) mmol/L Anion Gap 7.0 (3-11) BUN 24 H (7-18) mg/dl Creatinine 1.14 (0.6-1.4) mg/dl Est Cr Clr Drug Dosing 63.1 ml/min Est GFR ( Amer) 72.5 Est GFR (Non-Af Amer) 62.6 BUN/Creatinine Ratio 21.4 H (10-20) Glucose 121 H (70-99) mg/dl Lactate 2.1 H* (0.4-2.0) mmol/L Calcium 8.7 (8.5-10.1) mg/dl Magnesium 2.4 (1.8-2.4) mg/dl Total Bilirubin 1.1 H (0.2-1) mg/dl AST 55 H (15-37) U/L ALT 53 (12-78) U/L Alkaline Phosphatase 130 H (45-117) U/L Troponin I < 0.015 (0-0.045) ng/ml NT-Pro-B Natriuret Pep 540 (0-900) pg/ml Total Protein 8.3 H (6.4-8.2) gm/dl Albumin 2.9 L (3.4-5.0) gm/dl Globulin 5.4 H (2.5-4.0) gm/dl Albumin/Globulin Ratio 0.5 L (0.9-2) Procalcitonin (0-0.5) ng/ml Urine Color Urine Appearance (Clear) Urine pH (4.5-7.5) Ur Specific [place] (1.000-1.030) Urine Protein (Negative) Urine Glucose (UA) (Negative) Urine Ketones (Negative) Urine Blood (Negative) Urine Nitrite (Negative) Urine Bilirubin (Negative) Urine Urobilinogen (Negative) Ur Leukocyte Esterase (Negative) Urine WBC (Auto) (0-5) /hpf Urine RBC (Auto) (0-4) /hpf U Hyaline Cast (Auto) (0-5) /lpf U Epithel Cells (Auto) (0-5) /lpf Urine Bacteria (Auto) (Negative) Granular Casts (0) /lpf Urine Mucus (None Prsent) Urine Yeast Influenza Type A (PCR) (Neg) Influenza Type B (PCR) (Neg) 05/14/19 05/14/19 05/14/19 Range/Units 16:40 17:38 19:12 WBC (4.8-10.8) K/uL RBC (4.7-6.1) M/uL Hgb (14.0-18.0) g/dL Hct (42-52) % MCV (80-100) fL MCH (25-34) pg MCHC (32-36) g/dL RDW Std Deviation (36.4-46.3) fL RDW Coeff of Mata (11.5-14.5) % Plt Count (130-400) K/uL MPV (7.4-10.4) fL Immature Gran % (Auto) % Neut % (Auto) % Lymph % (Auto) % [place] % (Auto) % Eos % (Auto) % Baso % (Auto) % Immature Gran # (Auto) (0.00-0.02) K/uL Neut # (Auto) (1.4-6.5) K/uL Lymph # (Auto) (1.2-3.4) K/uL [place] # (Auto) (0.11-0.59) K/uL Eos # (Auto) (0-0.5) K/uL Baso # (Auto) (0-0.2) K/uL PT (9.0-12.0) Seconds INR (0.9-1.1) APTT (21.0-31.0) Seconds PTT Ratio VBG pH 7.47 H (7.36-7.41) VBG pCO2 31 L (38-50) mmHg VBG pO2 55 mmHg VBG HCO3 22 mmol/L VBG O2 Saturation 90.5 % VBG Base Excess -0.6 mEq/L Barometric Pressure 740.1 mm/Hg Sodium (136-145) mmol/L Potassium (3.5-5.1) mmol/L Chloride (98-107) mmol/L Carbon Dioxide (21-32) mmol/L Anion Gap (3-11) BUN (7-18) mg/dl Creatinine (0.6-1.4) mg/dl Est Cr Clr Drug Dosing ml/min Est GFR ( Amer) Est GFR (Non-Af Amer) BUN/Creatinine Ratio (10-20) Glucose (70-99) mg/dl Lactate 2.5 H* (0.4-2.0) mmol/L Calcium (8.5-10.1) mg/dl Magnesium (1.8-2.4) mg/dl Total Bilirubin (0.2-1) mg/dl AST (15-37) U/L ALT (12-78) U/L Alkaline Phosphatase (45-117) U/L Troponin I (0-0.045) ng/ml NT-Pro-B Natriuret Pep (0-900) pg/ml Total Protein (6.4-8.2) gm/dl Albumin (3.4-5.0) gm/dl Globulin (2.5-4.0) gm/dl Albumin/Globulin Ratio (0.9-2) Procalcitonin 0.84 H (0-0.5) ng/ml Urine Color Urine Appearance (Clear) Urine pH (4.5-7.5) Ur Specific [place] (1.000-1.030) Urine Protein (Negative) Urine Glucose (UA) (Negative) Urine Ketones (Negative) Urine Blood (Negative) Urine Nitrite (Negative) Urine Bilirubin (Negative) Urine Urobilinogen (Negative) Ur Leukocyte Esterase (Negative) Urine WBC (Auto) (0-5) /hpf Urine RBC (Auto) (0-4) /hpf U Hyaline Cast (Auto) (0-5) /lpf U Epithel Cells (Auto) (0-5) /lpf Urine Bacteria (Auto) (Negative) Granular Casts (0) /lpf Urine Mucus (None Prsent) Urine Yeast Influenza Type A (PCR) (Neg) Influenza Type B (PCR) (Neg) 05/14/19 Range/Units 19:55 WBC (4.8-10.8) K/uL RBC (4.7-6.1) M/uL Hgb (14.0-18.0) g/dL Hct (42-52) % MCV (80-100) fL MCH (25-34) pg MCHC (32-36) g/dL RDW Std Deviation (36.4-46.3) fL RDW Coeff of Mata (11.5-14.5) % Plt Count (130-400) K/uL MPV (7.4-10.4) fL Immature Gran % (Auto) % Neut % (Auto) % Lymph % (Auto) % [place] % (Auto) % Eos % (Auto) % Baso % (Auto) % Immature Gran # (Auto) (0.00-0.02) K/uL Neut # (Auto) (1.4-6.5) K/uL Lymph # (Auto) (1.2-3.4) K/uL [place] # (Auto) (0.11-0.59) K/uL Eos # (Auto) (0-0.5) K/uL Baso # (Auto) (0-0.2) K/uL PT (9.0-12.0) Seconds INR (0.9-1.1) APTT (21.0-31.0) Seconds PTT Ratio VBG pH (7.36-7.41) VBG pCO2 (38-50) mmHg VBG pO2 mmHg VBG HCO3 mmol/L VBG O2 Saturation % VBG Base Excess mEq/L Barometric Pressure mm/Hg Sodium (136-145) mmol/L Potassium (3.5-5.1) mmol/L Chloride (98-107) mmol/L Carbon Dioxide (21-32) mmol/L Anion Gap (3-11) BUN (7-18) mg/dl Creatinine (0.6-1.4) mg/dl Est Cr Clr Drug Dosing ml/min Est GFR ( Amer) Est GFR (Non-Af Amer) BUN/Creatinine Ratio (10-20) Glucose (70-99) mg/dl Lactate (0.4-2.0) mmol/L Calcium (8.5-10.1) mg/dl Magnesium (1.8-2.4) mg/dl Total Bilirubin (0.2-1) mg/dl AST (15-37) U/L ALT (12-78) U/L Alkaline Phosphatase (45-117) U/L Troponin I (0-0.045) ng/ml NT-Pro-B Natriuret Pep (0-900) pg/ml Total Protein (6.4-8.2) gm/dl Albumin (3.4-5.0) gm/dl Globulin (2.5-4.0) gm/dl Albumin/Globulin Ratio (0.9-2) Procalcitonin (0-0.5) ng/ml Urine Color Dark Yellow Urine Appearance Cloudy A (Clear) Urine pH 5.0 (4.5-7.5) Ur Specific [place] 1.035 H (1.000-1.030) Urine Protein 2+ H (Negative) Urine Glucose (UA) Negative (Negative) Urine Ketones Trace H (Negative) Urine Blood 2+ H (Negative) Urine Nitrite Positive A (Negative) Urine Bilirubin Negative (Negative) Urine Urobilinogen Negative (Negative) Ur Leukocyte Esterase Negative (Negative) Urine WBC (Auto) 1-5 (0-5) /hpf Urine RBC (Auto) 0-4 (0-4) /hpf U Hyaline Cast (Auto) 1-5 (0-5) /lpf U Epithel Cells (Auto) 20-30 H (0-5) /lpf Urine Bacteria (Auto) Negative (Negative) Granular Casts 1-5 H (0) /lpf Urine Mucus Present A (None Prsent) Urine Yeast Not Reportable Influenza Type A (PCR) (Neg) Influenza Type B (PCR) (Neg) Diagnostic Findings SINGLE VIEW CHEST CLINICAL HISTORY: Sepsis FINDINGS: An AP, portable, upright chest radiograph is compared to study dated 06/12/2012. The examination is degraded by portable technique and patient rotation. The heart is enlarged. There is pulmonary vascular congestion. Trace pleural effusions are identified. There are bibasilar airspace opacities, left greater than right. No pneumothorax is seen. The skeletal structures are osteopenic. The bony thorax is grossly intact. IMPRESSION: 1. Cardiomegaly with evidence of congestive failure. 2. Trace pleural effusions. 3. There are bibasilar airspace opacities which likely represent atelectasis. Correlate clinically for evidence of a superimposed infectious/inflammatory pneumonitis. ACT 112: Negative or not required by law. Electronically signed by: Miguel Roman M.D. 05/14/2019 4:50 PM Dictated: 05/14/191648 Transcribed: 05/14/191648 ECG Additional Comments: Study shows normal sinus rhythm at 94 bpm, right ventricular hypertrophy, junctional ST depression, NC = 152, QRS = 80, QTC = 425 Code Status & VTE Plan Code Status Conditional code. Patient does not wish to receive chest compressions. He is agreeable to intubation if needed for respiratory failure due to present condition VTE Prophylaxis Plan VTE Prophylaxis will be ordered: Yes PG Care Time/CCT Total # of Minutes Spent Total Time Spent with Patient: Total time spent is greater than 50% in coordination of care (as documented) at patient's floor/unit and/or counseling patient: Coding Level of Care Code 84031 Initial Inpt Care Lvl 3 Diagnoses Pneumonia J18.9 Laterality: unspecified laterality Lung location: unspecified part of lung Pneumonia type: due to unspecified organism Hypoxia R09.02 Hypertension I10 Hypertension type: essential hypertension Hyperlipidemia E78.5 Hyperlipidemia type: unspecified Hypothyroidism E03.9 Hypothyroidism type: unspecified Atherosclerotic heart disease of [place] coronary artery without angina pectoris I25.10 Benign essential tremor G25.0 (1) Hyperlipidemia Hyperlipidemia type: unspecified Qualified Code(s): E78.5 - Hyperlipidemia, unspecified (2) Hypothyroidism Hypothyroidism type: unspecified Qualified Code(s): E03.9 - Hypothyroidism, unspecified (3) Hypertension Hypertension type: essential hypertension Qualified Code(s): I10 - Essential (primary) hypertension (4) Pneumonia Laterality: unspecified laterality Lung location: unspecified part of lung Pneumonia type: due to unspecified organism Qualified Code(s): J18.9 - Pneumonia, unspecified organism
[2019-05-14] MEDS: ALBUT/IPRATROP 3MG/0.5MG NEB 3 ML VIAL NEB SCH (23:04)
[2019-05-14] MEDS ORDERED: SODIUM CHLORIDE 0.9% 1000ML 1,000 ML IV SCH (23:15)
[2019-05-15 00:06] LABS: Base Excess ABG -0.4 mEq/L (-9-1.8); HCO3 ABG 23 mmol/L (19-24); Oxygen Saturation ABG 98.5 % (90-95); PCO2 ABG 32 mmHg (35-46); PO2 ABG 116 mmHg (80-95); pH ABG 7.46 (7.35-7.45)
[2019-05-15 00:07] LABS: Allen Test POS (Pos)
[2019-05-15] MEDS: ALBUT/IPRATROP 3MG/0.5MG NEB 3 ML VIAL NEB SCH ×7 (03:38→22:54)
[2019-05-15] MEDS: LEVOTHYROXINE SODIUM 75 MCG TABLET PO SCH (06:27)
[2019-05-15 06:41] LABS: Basophils # (auto) 0.01 K/uL (0-0.2); Basophils % (auto) 0.1 %; Eosinophils # (auto) 0.01 K/uL (0-0.5); Eosinophils % (auto) 0.1 %; Hematocrit (blood only) 38.2 % (42-52); Hemoglobin 12.9 g/dL (14.0-18.0); Immature Granulocytes # (auto) 0.13 K/uL (0.00-0.02); Immature Granulocytes % (auto) 0.9 %; Lymphocytes # (auto) 2.04 K/uL (1.2-3.4); Lymphocytes % (auto) 13.4 %; Mean Corpuscular Hemoglobin 31.4 pg (25-34); Mean Corpuscular Hgb Conc 33.8 g/dL (32-36); Mean Corpuscular Volume 92.9 fL (80-100); Mean Platelet Volume 9.4 fL (7.4-10.4); Monocytes # (auto) 1.26 K/uL (0.11-0.59); Monocytes % (auto) 8.3 %; Neutrophils # (auto) 11.79 K/uL (1.4-6.5); Neutrophils % (auto) 77.2 %; Platelet Count 205 K/uL (130-400); RDW Coefficient of Variation 13.7 % (11.5-14.5); RDW Standard Deviation 46.4 fL (36.4-46.3); Red Blood Count 4.11 M/uL (4.7-6.1); White Blood Count 15.24 K/uL (4.8-10.8)
[2019-05-15 07:16] LABS: Albumin Level 2.4 gm/dl (3.4-5.0); BUN Creatinine Ratio 24.2 (10-20); Bilirubin Direct 0.2 mg/dl (0-0.2); Calcium 8.2 mg/dl (8.5-10.1); Creatinine Clr Calc Pharmacy 70.7 ml/min; Est GFR (African American) 83.9; Est GFR (Non-African American) 72.4; Potassium 3.9 mmol/L (3.5-5.1)
[2019-05-15 07:27] LABS: Bilirubin,Total 0.8 mg/dl (0.2-1); Thyroid Stimulating Hormone 1.62 uIu/ml (0.300-4.500); Total Protein 7.3 gm/dl (6.4-8.2)
--- NOTE | 2019-05-15 08:29 | XRay Report ---
XR chest 1V portable CLINICAL HISTORY: shortness of breath, hypoxia COMPARISON STUDY: 05/14/2019 FINDINGS: The heart remains enlarged. There is diffuse elevation of interstitium, consistent with con gestive failure. There are more focal left basilar airspace opacities, atelectatic versus pneumonia.[ IMPRESSION: No significant change from the preceding study. Continued radiographic evidence of conges tive failure. Persistent nonspecific left basilar airspace opacities ACT 112: Negative or not required by law. Electronically signed by: Yordy Olson M.D. 05/15/2019 8:28 AM
[2019-05-15 09:06] LABS: NT Pro B Type Natriuretic Pept 296 pg/ml (0-900); Troponin I < 0.015 ng/ml (0-0.045)
[2019-05-15 09:11] LABS: iSTAT Allen Test Pass; iSTAT Art Bld Gas pCO2 Correct 27 mmHg (35-46); iSTAT Arterial Blood Gas HCO3 20 meg/L (19-24); iSTAT Arterial Blood Gas pCO2 27 mmHg (35-46); iSTAT Arterial Blood Gas pH 7.47 (7.35-7.45); iSTAT Arterial Blood Gas pO2 62 mmHg (80-95); iSTAT Arterial Blood Gas pO2 C 62; iSTAT Carbon Dioxide 21 mmol/L (24-31); iSTAT FiO2 40 %; iSTAT Hematocrit 39 % (42-52); iSTAT Hemoglobin 13.3 g/dl (14.0-18.0); iSTAT Potassium 3.6 mmol/L (3.3-5.0); iSTAT Site R Radial; iSTAT Sodium 136 mmol/L (135-144)
[2019-05-15] MEDS: OMEGA-3 (PURIFIED FISH OIL) 1 GM CAP PO SCH (09:12)
[2019-05-15] MEDS: guaiFENesin 600 MG TABCR PO SCH ×2 (09:12→20:16)
[2019-05-15] MEDS: ASPIRIN 81 MG ECTAB PO SCH (09:12)
[2019-05-15] MEDS: BENZONATATE 100 MG CAPSULE PO SCH (09:13)
[2019-05-15 09:17] LABS: Allen Test Pos (Pos); HCO3 ABG 22 mmol/L (19-24); Oxygen Saturation ABG 94.9 % (90-95); PCO2 ABG 30 mmHg (35-46); PO2 ABG 65 mmHg (80-95); pH ABG 7.49 (7.35-7.45)
[2019-05-15] MEDS ORDERED: VANCOMYCIN HCL 1,750 MG in SODIUM CHLORIDE 0.9% 500 ML IV ONE (09:46)
[2019-05-15] MEDS ORDERED: VANCOMYCIN CONSULT ACTIVE PRN (09:46)
[2019-05-15] MEDS ORDERED: LACTATED RINGER'S 2,000 ML IV ONE (10:00)
[2019-05-15] MEDS ORDERED: VANCOMYCIN HCL 2,250 MG in SODIUM CHLORIDE 0.9% 500 ML IV ONE (10:00)
[2019-05-15] MEDS ORDERED: OPTIRAY 320 125ml IV PRN (10:38)
[2019-05-15 11:03] LABS: Influenza A virus by PCR Neg for Influ A (Neg); Influenza B virus by PCR Neg for Influ B (Neg)
--- NOTE | 2019-05-15 11:06 | CT Scan Report ---
CT angio chest PE protocol CLINICAL HISTORY: 74 years-old Male presenting with hypoxia out of proportion to chest radiograph fin ding, clinical concern for pulmonary embolus. TECHNIQUE: Multidetector CT angiography of the chest was performed after administration of intravenou s contrast. 3-D volumetric and/or maximum intensity projection (MIP) images were subsequently reconst ructed for review. IV contrast: 120 mL of Optiray 320. One or more dose lowering techniques were used consistent with the principles of ALARA (as low as reasonably achievable), including automatic expos ure control, mA or kV adjustment to individual patient size, and/or use of iterative reconstruction. COMPARISON: 06/13/2007. CT DOSE (mGy.cm): The estimated cumulative dose is 661.60 mGy.cm. FINDINGS: [employer] Messenger topogram: Unremarkable. Pulmonary vasculature: The study is suboptimal for the assessment of the pulmonary vascular tree secondary to timing of the contrast bolus and respiratory motion artifact. Allowing for limited image quality, no central fillin g defect to suggest pulmonary embolus. Main pulmonary artery is not enlarged. No flattening of the in terventricular septum. No intracardiac filling defect. No reflux of contrast into the hepatic veins. Remaining chest: Soft tissues: Normal thyroid and thoracic inlet. Prominent subcarinal lymph nodes measuring up to 14 mm in short axis. Additional slightly smaller prominent lymph nodes in the [place]al[place] bilaterally. Normal a yolis. Normal heart size. Coronary artery and aortic valve calcification. No pericardial or pleural ef fusion. Upper abdomen normal. Lungs and airways: No pneumothorax. Central airways patent. Pulmonary arteries mildly enlarged relati ve to adjacent bronchi. No interlobular septal thickening. Respiratory motion artifact severely degra ishmael evaluation of the lung parenchyma. Allowing for this, peribronchovascular and dependent consolida tion in the lower lobes. The pattern is not limited to subpleural dependent portions of the lower lob es. Musculoskeletal: Degenerative changes of the spine. IMPRESSION: 1. Allowing for suboptimal image quality and significant limitations, no evidence of a central pulmo nary embolus. 2. Extensive bibasilar consolidation in both dependent and peribronchovascular distributions. Findin gs concerning for aspiration/aspiration pneumonitis with a component of significant atelectasis. Unde rlying infection not excluded. Evaluation of lung parenchyma severely degraded by respiratory motion artifact. 3. Mediastinal and hilar lymphadenopathy may be reactive. Attention on follow-up. This is new since 2007. ACT 112: Negative or not required by law. Electronically signed by: Keon Bradford M.D. 05/15/2019 11:04 AM
--- NOTE | 2019-05-15 11:08 | Hospitalist Progress Note ---
Date of Service May 15, 2019 Assessment & Plan (1) Sepsis: Sepsis on admission based upon RR up to 46. HR 102, WBC 14.8 with source PNA (less likely UTI with positive nitrites) Lactate 2.1 -> 2.5 qSOFA 1 (not high risk), SOFA (this morning) - 2 (low) Rx for acute hypoxic respiratory failure and CAP as below Urine spec gravity on admission suggests dehydration, clinically he is dry on exam, no history of heart failure as per the patient (noted [place] however), BNP downtrending despite IV fluids, no change in CXR -> all suggest he is significantly dry and requires IV fluids. I suspect this is why his hypoxia is disproportionate to his CXR findings. However will get CT for PE to make sure there is no supply-demand mismatch from PE in addition. No significant anemia to explain severe hypoxia. ABG this morning confirmed low PaO2 even on 40% high flow nasal cannula. (2) Acute respiratory failure with hypoxia: Out of proportion to CXR findings. Therefore will get CT for PE as above. Aim O2 sats Secondary to PNA vs. less likely UTI sepsis (3) Pneumonia: History strongly suggestive of community acquired pneumonia although procalcitonin only minimally elevated compared to hypoxia. Influenza repeated to make sure this was not a technique error in the ER of collecting sample as this would explain his symptoms considerably. Continue ceftriaxone and azithromycin. Will add Vancomycin while awaiting MRSA nose swab PCR given non-lobar pneumonia. No travel to [place] to suggest COVID-19. Incentive spirometry, flutter valve, mucinex 1200 mg p.o. twice daily. (4) Hypertension: No outpatient medication for this. Will use hydralazine 5mg IV PRN q4h for sustained (two readings an hour apart) sBP > 180. (5) Hyperlipidemia: Chronic. Patient presently not on any medication for this. Uncertain as to why given history of FL. 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 No angina prior to 1 week ago but having chest heaviness with current illness (see below). By report, patient had an FL 3 years ago. Troponin negative on admission and this morning. No acute ischemic changes noted on EKG on admission or repeat this morning. Continue aspirin 81 mg p.o. daily unclear why he isn't on BB or statin (8) Benign essential tremor: Chronic. (9) DVT prophylaxis: Start lovenox 40mg SQ daily after CT for PE as long as negative. Admission and Anticipated Discharge Date Admission Date: May 14, 2019 PT/OT once more stable - ordered for tomorrow. Subjective Patient feels shortness of breath improved since coming to the ER but still has a high oxygen requirement out of proportion to changes on his XR. Some concern for fluid overload on admission therefore did not receive usual fluid boluses for sepsis. Lactic acid was elevated and rising on repeat. He denies any current chest pain but has been having intermittent heaviness chest pains with this current illness. Originally on exertion, relieved with rest but this morning he had is while lying in bed. No worse on palpation. last for 10-15 minutes on each occasion. Worst episode was 1 hour prior to arriving in the ER. Associated diaphoresis, shortness of breath and fevers/chills but also having these outside of the chest pain. Outside of this illness he does not these chest pains. Current severity 0/10. Current illness has been getting progressively worse since it started 4 days prior to admission. No double worsening however fevers and chills started on day 4 of the illness. Review of Systems Review of Systems: All systems reviewed & are unremarkable except as noted in HPI & below Physical Exam Constitutional: well developed, well nourished, + acute distress (respiratory) and + language barrier ([place] speaker, pt short of breath) Eyes: + anicteric sclerae; normal pupil size ENMT: Ears: no external ear abnormality Nose: no external nose abnormality Mouth: + dry oral mucous membranes Neck: trachea midline, no thyromegaly Respiratory: + respiratory distress, + labored breathing, + retractions, + uses accessory muscles and + cough (wet sounding but non-productive); + not able to speak in complete sentence Auscultation: + crackles (bibasal coarse) and + rhonchi (diffuse); no diminished lung sounds and no wheezes Cardiovascular: Rate/Rhythm: regular rhythm and + tachycardic Heart Sounds: no murmur Vessels: no JVD Extremities: normal capillary refill and + pedal edema (trace b/l); no calf tenderness Gastrointestinal (Abdomen): normal bowel sounds, soft, nontender, no hepatosplenomegaly Musculoskeletal: no cyanosis or clubbing, extremities motor strength 5/5 Skin: no rashes, warm and dry Neurologic: moves all extremities and awake; no focal motor deficits and not confused Motor/Sensory: + tremor (resting < postural) Psychiatric: A+Ox3, euthymic affect Genitourinary: no CVA tenderness Lymphatic: no cervical or axillary lymphadenopathy Results & Data ([facility]) Vital Signs (Past 12 Hours) Vital Signs Temp Pulse Pulse Resp BP BP Pulse Ox 05/15/19 11:02 36.7 C 85 16 176/86 H 98 05/15/19 10:59 80 20 96 05/15/19 10:20 80 22 98 05/15/19 07:59 36.8 C 69 18 141/83 H 91 05/15/19 07:39 70 25 H 94 05/15/19 07:13 69 29 H 97 05/15/19 07:11 69 29 H 97 05/15/19 07:08 68 05/15/19 04:00 36.2 C L 70 18 138/79 97 05/15/19 03:40 68 28 H 96 05/15/19 03:39 68 34 H 96 05/15/19 00:00 37.5 C 78 20 128/80 96 Pulse Ox 05/15/19 11:02 05/15/19 10:59 05/15/19 10:20 96 05/15/19 07:59 05/15/19 07:39 05/15/19 07:13 05/15/19 07:11 05/15/19 07:08 05/15/19 04:00 05/15/19 03:40 05/15/19 03:39 05/15/19 00:00 PG Care Time/CCT Total # of Minutes Spent Total Time Spent with Patient: Total time spent is greater than 50% in coordination of care (as documented) at patient's floor/unit and/or counseling patient: Critical Care Time: Yes Total Critical Care Time: 25 Coding Level of Care Code 28747 Subseq Hosp Care Lvl 3 Diagnoses Sepsis A41.9; R65.20; J96.01 Sepsis type: sepsis due to unspecified organism Sepsis acute organ dysfunction status: with acute organ dysfunction Severe sepsis acute organ dysfunction type: acute respiratory failure Acute respiratory failure type: with hypoxia Severe sepsis shock status: without septic shock Acute respiratory failure with hypoxia J96.01 Pneumonia J18.9 Laterality: unspecified laterality Lung location: unspecified part of lung Pneumonia type: due to unspecified organism Hypertension I10 Hypertension type: essential hypertension Hyperlipidemia E78.5 Hyperlipidemia type: unspecified Hypothyroidism E03.9 Hypothyroidism type: unspecified Atherosclerotic heart disease of [place] coronary artery without angina pectoris I25.10 [place] vs. transplanted heart: [place] heart Benign essential tremor G25.0 DVT prophylaxis Z29.9 Additional Codes Critical Care Time - Critical Care Time: Yes ([id number]) (1) Pneumonia Laterality: unspecified laterality Lung location: unspecified part of lung Pneumonia type: due to unspecified organism Qualified Code(s): J18.9 - Pneumonia, unspecified organism (2) Hypertension Hypertension type: essential hypertension Qualified Code(s): I10 - Essential (primary) hypertension (3) Hyperlipidemia Hyperlipidemia type: unspecified Qualified Code(s): E78.5 - Hyperlipidemia, unspecified (4) Hypothyroidism Hypothyroidism type: unspecified Qualified Code(s): E03.9 - Hypothyroidism, unspecified (5) Atherosclerotic heart disease of [place] coronary artery without angina pectoris [place] vs. transplanted heart: [place] heart Qualified Code(s): I25.10 - Atherosclerotic heart disease of [place] coronary artery without angina pectoris (6) Sepsis Sepsis type: sepsis due to unspecified organism Sepsis acute organ dysfuncti on status: with acute organ dysfunction Severe sepsis acute organ dysfunction type: acute respiratory failure Acute respiratory failure type: with hypoxia Severe sepsis shock status: without septic shock Qualified Code(s): A41.9 - Sepsis, unspecified organism; R65.20 - Severe sepsis without septic shock; J96.01 - Acute respiratory failure with hypoxia
[2019-05-15] MEDS ORDERED: ENOXAPARIN INJ 40 MG/0.4 ML SYR SQ ONE (11:35)
[2019-05-15] MEDS ORDERED: HydrALAZINE HCL 20 MG/ML VIAL IV PRN (11:50)
[2019-05-15] MEDS ORDERED: methylPREDNISolone 125 MG in SYRINGE 0 ML IV ONE (13:45)
[2019-05-15] MEDS ORDERED: LACTATED RINGER'S 1,000 ML IV ONE (15:44)
[2019-05-15] MEDS ORDERED: LACTATED RINGER'S 500 ML IV ONE (15:45)
[2019-05-15] MEDS ORDERED: LORazepam 0.5 MG TAB PO PRN (16:00)
[2019-05-15] MEDS: cefTRIAXone SODIUM 2,000 MG in DEXTROSE 5% 50 ML IV SCH (17:46)
--- NOTE | 2019-05-15 18:27 | Electrocardiogram Report ---
Test Reason : Blood Pressure : / mmHG Vent. Rate : 094 BPM Atrial Rate : 094 BPM P-R Int : 152 ms QRS Dur : 080 ms QT Int : 340 ms P-R-T Axes : 051 254 023 degrees QTc Int : 425 ms Poor data quality, interpretation may be adversely affected Normal sinus rhythm Right superior axis deviation Right ventricular hypertrophy Nonspecific ST abnormality Abnormal ECG When compared with ECG of 22-APR-2004 10:19, Vent. rate has increased BY 40 BPM Confirmed by Jm Keating ([id number]) on 05/15/2019 6:26:41 PM Referred By: REFERRED SELF Confirmed By:Jm Keating
[2019-05-15] MEDS: AZITHROMYCIN 250 MG in DEXTROSE 5% 250 ML IV SCH (18:50)
--- NOTE | 2019-05-15 19:15 | XCELERA ---
[id number]
[2019-05-15] MEDS: LACTATED RINGER'S 1,000 ML IV SCH (20:14)
[2019-05-16] MEDS: LACTATED RINGER'S 1,000 ML IV SCH ×2 (03:22→12:14)
[2019-05-16] MEDS: ALBUT/IPRATROP 3MG/0.5MG NEB 3 ML VIAL NEB SCH ×6 (03:25→22:57)
--- NOTE | 2019-05-16 05:54 | Electrocardiogram Report ---
Test Reason : Blood Pressure : / mmHG Vent. Rate : 074 BPM Atrial Rate : 074 BPM P-R Int : 146 ms QRS Dur : 082 ms QT Int : 402 ms P-R-T Axes : 032 -33 012 degrees QTc Int : 446 ms Sinus rhythm with Premature atrial complexes Left axis deviation Abnormal ECG When compared with ECG of 14-MAY-2019 16:36, Premature atrial complexes are now Present Questionable change in QRS axis Confirmed by Jm Keating ([id number]) on 05/16/2019 5:53:48 AM Referred By: REFERRED SELF Confirmed By:Jm Keating
[2019-05-16] MEDS: LEVOTHYROXINE SODIUM 75 MCG TABLET PO SCH (06:13)
[2019-05-16 07:20] LABS: Basophils # (auto) 0.01 K/uL (0-0.2); Basophils % (auto) 0.1 %; Hematocrit (blood only) 36.5 % (42-52); Hemoglobin 12.1 g/dL (14.0-18.0); Immature Granulocytes # (auto) 0.11 K/uL (0.00-0.02); Immature Granulocytes % (auto) 1.1 %; Lymphocytes # (auto) 1.13 K/uL (1.2-3.4); Lymphocytes % (auto) 11.3 %; Mean Corpuscular Hemoglobin 30.5 pg (25-34); Mean Corpuscular Hgb Conc 33.2 g/dL (32-36); Mean Corpuscular Volume 91.9 fL (80-100); Mean Platelet Volume 9.9 fL (7.4-10.4); Monocytes # (auto) 0.33 K/uL (0.11-0.59); Monocytes % (auto) 3.3 %; Neutrophils % (auto) 84.2 %; Platelet Count 200 K/uL (130-400); RDW Coefficient of Variation 13.7 % (11.5-14.5); Red Blood Count 3.97 M/uL (4.7-6.1); White Blood Count 9.98 K/uL (4.8-10.8)
[2019-05-16 07:53] LABS: BUN Creatinine Ratio 31.1 (10-20); Calcium 8.8 mg/dl (8.5-10.1); Creatinine Clr Calc Pharmacy 89.3 ml/min; Est GFR (African American) 101.3; Est GFR (Non-African American) 87.4
[2019-05-16] MEDS ORDERED: CARBOHYDRATES FOR HYPOGLYCEMIA PO PRN (07:56)
[2019-05-16] MEDS ORDERED: GLUCAGON FOR INJ 1 MG VIAL SQ PRN (07:56)
[2019-05-16] MEDS ORDERED: GLUCOSE 40% GEL 15 GM TUBE PO PRN (07:56)
[2019-05-16] MEDS ORDERED: GLUCOSE 10 TABS/TUBE PO PRN (07:56)
[2019-05-16] MEDS ORDERED: DEXTROSE 50% 50 ML SYRINGE IV PRN (07:56)
[2019-05-16] MEDS: ENOXAPARIN INJ 40 MG/0.4 ML SYR SQ SCH (08:06)
[2019-05-16] MEDS: guaiFENesin 600 MG TABCR PO SCH ×2 (08:06→20:34)
[2019-05-16] MEDS: OMEGA-3 (PURIFIED FISH OIL) 1 GM CAP PO SCH (08:06)
[2019-05-16] MEDS: ASPIRIN 81 MG ECTAB PO SCH (08:06)
--- NOTE | 2019-05-16 08:34 | XRay Report ---
XR chest 1V portable CLINICAL HISTORY: 74 years-old Male presenting with hypoxia. TECHNIQUE: Portable upright AP view of the chest was obtained. COMPARISON: 05/15/2019. FINDINGS: Atherosclerosis of the aortic arch. Cardiac silhouette borderline enlarged. Pulmonary vascular promin ence. Mildly low lung volumes. Patchy mid to basilar predominant opacities similar to prior. No large effusion or pneumothorax. Degenerative changes of the thoracic spine. Gaseous distention of bowel be neath the left hemidiaphragm possibly the stomach. IMPRESSION: 1. Persistent mid to basilar bilateral pulmonary infiltrates. Findings could represent aspiration/as piration pneumonitis with a component of atelectasis. 2. Volume overload. ACT 112: Negative or not required by law. Electronically signed by: Keon Bradford M.D. 05/16/2019 8:33 AM
[2019-05-16] MEDS ORDERED: predniSONE 20 MG TAB PO SCH (09:00)
[2019-05-16] MEDS: predniSONE 20 MG TAB PO SCH (09:34)
[2019-05-16] MEDS: INSULIN ASPART 100 UNITS/ML 3 ML PEN SC SCH ×3 (12:08→20:36)
--- NOTE | 2019-05-16 12:19 | Hospitalist Progress Note ---
Date of Service May 16, 2019 Assessment & Plan (1) Sepsis: Sepsis on admission based upon RR up to 46. HR 102, WBC 14.8 with source PNA (less likely UTI with positive nitrites) Lactate 2.1 -> 2.5, suspect under hydrated in hindsight due to concerns regarding heart failure. qSOFA 1 (not high risk), SOFA [2/20] - 2 (low) Rx for acute hypoxic respiratory failure and CAP as below (2) Acute respiratory failure with hypoxia: Aim O2 sats > 94% Secondary to PNA as below + vast improvement with steroids suggest reactive airway disease component (3) Pneumonia: History strongly suggestive of community acquired vs. aspiration pneumonia although procalcitonin only minimally elevated compared to hypoxia. Influenza negative. Continue ceftriaxone and azithromycin. Will defer adding metronidazole given clinical improvement and switch to Augmentin when O2 requirement down. Incentive spirometry, flutter valve, mucinex 1200 mg p.o. twice daily. (4) Reactive airway disease: Suspected with acute exacerbation. No known underlying lung disease but wheezing and improvement with steroids highly suggestive of this. Continue prednisone 40mg for 4 days. (total 5 days steroids). Duonebs Q4r +PRN (5) Aspiration into respiratory tract: Possible aspiration pneumonitis and this is why steroids worked well. Aspiration due to not have enough teeth and not chewing properly which caused his shortness of breath episode yesterday. Appreciate SLT review and video swallow showing intermittently incomplete epiglottic deflection but no aspiration. Recommend regular diet but with aspiration precautions as listed in note. (6) Steroid-induced hyperglycemia: Start Lantus 5 units BID with correction factor Novolog. BSG ACHS. HbA1C in AM. (7) Benign essential tremor: Chronic. Worse with steroids but not concerning. (8) Atherosclerotic heart disease of [place] coronary artery without angina pectoris: Suspected. No angina prior to 1 week ago but having chest heaviness with current illness (see below). By report, patient had an AL 30 years ago. Troponins negative. No acute ischemic changes noted on serial EKGs. - Continue aspirin 81 mg p.o. daily - given unclear history will defer BB or statin at this time for O/P follow up. - Echo reassuringly unremarkable (9) Hypothyroidism: TSH 1.62 Continue levothyroxine home dose 75 mcg (10) Hyperlipidemia: Chronic. Patient presently not on any medication for this. Uncertain as to why given history of [place]. will defer management until more stable (11) Hypertension: No outpatient medication for this. Will use hydralazine 5mg IV PRN q4h for sustained (two readings an hour apart) sBP > 180. (12) DVT prophylaxis: Lovenox 40mg SQ daily Admission and Anticipated Discharge Date Admission Date: May 14, 2019 Subjective Patient feels much improved since yesterday after steroids were given. Reluctant to take large breaths as it makes him cough and he felt that was making him worse - he was encouraged to take large breaths to help aerate his lungs. Only having chest pain on coughing or palpation. Review of Systems Review of Systems: All systems reviewed & are unremarkable except as noted in HPI & below Physical Exam Constitutional: well developed, well nourished, + acute distress (mild respiratory, markedly improved) and + language barrier ([place] speaker, pt short of breath) Eyes: + anicteric sclerae; normal pupil size ENMT: Ears: no external ear abnormality Nose: no external nose abnormality Mouth: oral mucous membranes not dry Neck: trachea midline, no thyromegaly Respiratory: + respiratory distress and + uses accessory muscles; no labored breathing, no retractions, no cough and + not able to speak in complete sentence Auscultation: + crackles (bibasal coarse) and + rhonchi (diffuse); no diminished lung sounds and no wheezes Cardiovascular: Rate/Rhythm: regular rhythm and + tachycardic Heart Sounds: no murmur Vessels: no JVD Extremities: normal capillary refill and + pedal edema (trace b/l); no calf tenderness Gastrointestinal (Abdomen): normal bowel sounds, soft, nontender, no hepatosplenomegaly Musculoskeletal: no cyanosis or clubbing, extremities motor strength 5/5 Skin: no rashes, warm and dry Neurologic: moves all extremities and awake; no focal motor deficits and not confused Motor/Sensory: + tremor (resting < postural, increased after steroids given) Psychiatric: A+Ox3, euthymic affect Results & Data ([facility]) Vital Signs (Past 12 Hours) Vital Signs Temp Pulse Pulse Pulse Resp BP BP 05/16/19 11:23 55 L 22 05/16/19 11:09 36.4 C L 53 L 20 122/73 05/16/19 08:09 36.5 C 66 18 137/71 05/16/19 07:33 59 L 05/16/19 07:29 62 05/16/19 07:04 59 L 31 H 05/16/19 04:09 36.4 C L 65 25 H 125/69 05/16/19 03:27 60 60 20 05/16/19 01:12 61 20 05/16/19 00:57 36.4 C L 65 18 139/75 Pulse Ox 05/16/19 11:23 94 05/16/19 11:09 95 05/16/19 08:09 90 05/16/19 07:33 05/16/19 07:29 93 05/16/19 07:04 96 05/16/19 04:09 95 05/16/19 03:27 95 05/16/19 01:12 94 05/16/19 00:57 95 PG Care Time/CCT Total # of Minutes Spent Total Time Spent with Patient: Total time spent is greater than 50% in coordination of care (as documented) at patient's floor/unit and/or counseling patient: Coding Level of Care Code 07551 Subseq Hosp Care Lvl 3 Diagnoses Sepsis A41.9; R65.20; J96.01 Acute respiratory failure type: with hypoxia Sepsis acute organ dysfunction status: with acute organ dysfunction Sepsis type: sepsis due to unspecified organism Severe sepsis acute organ dysfunction type: acute respiratory failure Severe sepsis shock status: without septic shock Acute respiratory failure with hypoxia J96.01 Pneumonia J18.9 Laterality: unspecified laterality Lung location: unspecified part of lung Pneumonia type: due to unspecified organism Reactive airway disease J45.901 Asthma severity: unspecified severity Asthma persistence: unspecified Asthma complication type: with acute exacerbation Aspiration into respiratory tract T17.908A Encounter type: initial encounter Steroid-induced hyperglycemia R73.9; T38.0X5A Benign essential tremor G25.0 Atherosclerotic heart disease of [place] coronary artery without angina pectoris I25.10 [place] vs. transplanted heart: [place] heart Hypothyroidism E03.9 Hypothyroidism type: unspecified Hyperlipidemia E78.5 Hyperlipidemia type: unspecified Hypertension I10 Hypertension type: essential hypertension DVT prophylaxis Z29.9 (1) Hyperlipidemia Hyperlipidemia type: unspecified Qualified Code(s): E78.5 - Hyperlipidemia, u nspecified (2) Hypothyroidism Hypothyroidism type: unspecified Qualified Code(s): E03.9 - Hypothyroidism, unspecified (3) Atherosclerotic heart disease of [place] coronary artery without angina pectoris [place] vs. transplanted heart: [place] heart Qualified Code(s): I25.10 - Atherosclerotic heart disease of [place] coronary artery without angina pectoris (4) Sepsis Acute respiratory failure type: with hypoxia Sepsis acute organ dysfunction status: with acute organ dysfunction Sepsis type: sepsis due to unspecified organism Severe sepsis acute organ dysfunction type: acute respiratory failure Severe sepsis shock status: without septic shock Qualified Code(s): A41.9 - Sepsis, unspecified organism; R65.20 - Severe sepsis without septic shock; J96.01 - Acute respiratory failure with hypoxia (5) Hypertension Hypertension type: essential hypertension Qualified Code(s): I10 - Essential (primary) hypertension (6) Pneumonia Laterality: unspecified laterality Lung location: unspecified part of lung Pneumonia type: due to unspecified organism Qualified Code(s): J18.9 - Pneumonia, unspecified organism (7) Reactive airway disease Asthma severity: unspecified severity Asthma persistence: unspecified Asthma complication type: with acute exacerbation Qualified Code(s): J45.901 - Unspecified asthma with (acute) exacerbation (8) Aspiration into respiratory tract Encounter type: initial encounter Qualified Code(s): T17.908A - Unspecified foreign body in respiratory tract, part unspecified causing other injury, initial encounter
--- NOTE | 2019-05-16 14:04 | Fluoroscopy Report ---
FL video swallow CLINICAL HISTORY: 74 years-old Male presenting with pneumonia, r/o aspiration. TECHNIQUE: Video fluoroscopic evaluation of swallowing was performed in the AP and lateral projection s in conjunction with speech pathology. The patient was administered various textures, including nect ar-thick and thin liquid barium, a barium coated wafer, and barium pudding. COMPARISON: None. FINDINGS: Limited evaluation of the esophagus within normal limits. Normal oral transit, including normal tongue-soft palate seal. Normal soft palate-superior constricto r muscle seal without evidence of nasopharyngeal regurgitation. Normal oral transport/propulsion of t he food bolus. Normal hyoid elevation, however, intermittently incomplete epiglottic deflection. No e vidence of a significant pharyngeal bolus residual. None of the administered textures resulted in laryngeal penetration within the laryngeal vestibule. N one of the administered textures resulted in aspiration of barium contrast below the level of the belia e vocal folds. Fluoroscopy dosage (mGy): Not available. Fluoroscopy time: 2.5 minutes. Number or time of high level fluoroscopy (HLF), digital spot, or digital subtraction images: 0. IMPRESSION: 1. Intermittently incomplete epiglottic deflection. 2. No aspiration. 3. Please see the speech pathologist report for detailed findings and recommendations. ACT 112: Negative or not required by law. Electronically signed by: Keon Bradford M.D. 05/16/2019 2:03 PM
[2019-05-16] MEDS: cefTRIAXone SODIUM 2,000 MG in DEXTROSE 5% 50 ML IV SCH (17:44)
[2019-05-16] MEDS: AZITHROMYCIN 250 MG in DEXTROSE 5% 250 ML IV SCH (18:17)
[2019-05-16] MEDS: INSULIN GLARGINE SOLOSTAR 100 UNITS/ML 3 ML PEN SC SCH (22:14)
[2019-05-17] MEDS: ALBUT/IPRATROP 3MG/0.5MG NEB 3 ML VIAL NEB SCH ×6 (03:17→23:27)
[2019-05-17] MEDS: LEVOTHYROXINE SODIUM 75 MCG TABLET PO SCH (06:18)
[2019-05-17 07:06] LABS: Estimated Average Glucose 123 mg/dl; Hemoglobin A1C 5.9 % (4.5-5.6)
[2019-05-17 07:39] LABS: BUN Creatinine Ratio 33.7 (10-20); Calcium 8.5 mg/dl (8.5-10.1); Creatinine Clr Calc Pharmacy 81.6 ml/min; Est GFR (African American) 97.4; Potassium 3.7 mmol/L (3.5-5.1)
[2019-05-17] MEDS: ASPIRIN 81 MG ECTAB PO SCH (08:41)
[2019-05-17] MEDS: OMEGA-3 (PURIFIED FISH OIL) 1 GM CAP PO SCH (08:41)
[2019-05-17] MEDS: predniSONE 20 MG TAB PO SCH (08:41)
[2019-05-17] MEDS: guaiFENesin 600 MG TABCR PO SCH ×2 (08:41→21:03)
[2019-05-17] MEDS: ENOXAPARIN INJ 40 MG/0.4 ML SYR SQ SCH (08:42)
[2019-05-17] MEDS: INSULIN GLARGINE SOLOSTAR 100 UNITS/ML 3 ML PEN SC SCH ×2 (08:42→21:02)
[2019-05-17] MEDS: INSULIN ASPART 100 UNITS/ML 3 ML PEN SC SCH ×4 (08:42→21:01)
--- NOTE | 2019-05-17 14:41 | Hospitalist Progress Note ---
Date of Service May 17, 2019 Assessment & Plan (1) Sepsis: Sepsis, on admission, now resolved Diagnosed from RR up to 46. HR 102, WBC 14.8 with source PNA (less likely UTI with positive nitrites) Lactate 2.1 -> 2.5, suspect under hydrated in hindsight due to concerns regarding heart failure. qSOFA 1 (not high risk), SOFA [05/15] - 2 (low) Rx for acute hypoxic respiratory failure and CAP as below (2) Acute respiratory failure with hypoxia: Aim O2 sats > 94%, now down to 3.5L/min. Possible d/c tomorrow if able to wean O2 and perform 2 step. Will get CXR in AM to see if there is any ongoing pulmonary edema that would require Lasix. Secondary to PNA as below + vast improvement with steroids suggest reactive airway disease component (3) Pneumonia: Community acquired vs. aspiration pneumonia. Influenza negative. Now improving will switch ceftriaxone to Augmentin which will better cover aspirations. Continue azithromycin for atypicals although legionella negative. Incentive spirometry, flutter valve, mucinex 1200 mg p.o. twice daily. (4) Reactive airway disease: Suspected with acute exacerbation. No known underlying lung disease but wheezing and improvement with steroids highly suggestive of this. Continue prednisone 40mg for 4 days. (total 5 days steroids). Duonebs Q4R + PRN Given worsening wheezing in between nebulizer treatment will start LABA/ICS (5) Aspiration into respiratory tract: Possible aspiration pneumonitis which may explain improvement with steroids. Aspiration event on chau due to not have enough teeth and not chewing properly which caused his shortness of breath episode 04/14. Appreciate SLT review and video swallow showing intermittently incomplete epiglottic deflection but no aspiration. Recommend regular diet but with aspiration precautions as listed in note. (6) Steroid-induced hyperglycemia: Continue Lantus 5 units BID with correction factor Novolog. BSG ACHS. HbA1C 5.9. (7) Benign essential tremor: Chronic. Worse with steroids but not concerning. HR somewhat limits propranolol use but could consider primidone as outpatient if he still has significant symptoms after PNA resolves. (8) Atherosclerotic heart disease of [place] coronary artery without angina pectoris: Suspected. No angina prior to 1 week ago but having chest heaviness with current illness (see below). By report, patient had an [place] 30 years ago. Troponins negative. No acute ischemic changes noted on serial EKGs. - Continue aspirin 81 mg p.o. daily - given unclear history will defer BB or statin at this time for O/P follow up. - Echo reassuringly unremarkable (9) Hypothyroidism: TSH 1.62 Continue levothyroxine home dose 75 mcg (10) Hyperlipidemia: Chronic. Patient presently not on any medication for this. Uncertain as to why given history of [place]. will defer management to PCP on follow up. (11) Hypertension: No outpatient medication for this. Will use hydralazine 5mg IV PRN q4h for sustained (two readings an hour apart) sBP > 180. Suspect after he comes off the prednisone BP will improve. (12) DVT prophylaxis: Lovenox 40mg SQ daily Admission and Anticipated Discharge Date Admission Date: May 14, 2019 Anticipated date of discharge: 05/19/19 Subjective Continued improvement with shortness of breath but still having significant wheezing. Still requiring 3.5L/min O2. Main concern ongoing from patient and his is his benign essential tremor which I have explained is worse due to his current infection and steroids -> recommended he follow up with his PCP if his symptoms are still bad enough to require medication after his current illness has cleared up. Review of Systems Review of Systems: All systems reviewed & are unremarkable except as noted in HPI & below Physical Exam Constitutional: well developed, well nourished and + language barrier (Czech speaker, pt short of breath); no acute distress Eyes: + anicteric sclerae; normal pupil size ENMT: external ear and nose normal, oropharynx normal Neck: trachea midline, no thyromegaly Respiratory: normal respiratory effort and able to speak in complete sentences; no respiratory distress, no labored breathing, no retractions, does not use accessory muscles and no cough Auscultation: + crackles (bibasal coarse, improving) and + wheezes (occur if he has not had his nebs within the last 1-2 hours); no diminished lung sounds and no rhonchi Cardiovascular: Rate/Rhythm: regular rhythm and + tachycardic Heart Sounds: no murmur Vessels: no JVD Extremities: normal capillary refill and + pedal edema (trace b/l); no calf tenderness Gastrointestinal (Abdomen): normal bowel sounds, soft, nontender, no hepatosplenomegaly Musculoskeletal: no cyanosis or clubbing, extremities motor strength 5/5 Skin: no rashes, warm and dry Neurologic: moves all extremities and awake; no focal motor deficits and not confused Motor/Sensory: + tremor (resting < postural, increased after steroids given) Psychiatric: A+Ox3, euthymic affect Results & Data ([facility]) Vital Signs (Past 12 Hours) Vital Signs Temp Pulse Pulse Pulse Resp BP Pulse Ox 05/17/19 11:37 96 H 18 94 05/17/19 10:22 36.4 C L 61 18 145/71 H 94 05/17/19 08:15 36.5 C 66 20 131/62 91 05/17/19 08:02 59 L 05/17/19 07:12 58 L 18 92 05/17/19 03:49 36.4 C L 65 18 148/71 H 93 05/17/19 03:18 63 20 94 PG Care Time/CCT Total # of Minutes Spent Total Time Spent with Patient: Total time spent is greater than 50% in coordination of care (as documented) at patient's floor/unit and/or counseling patient: Coding Level of Care Code 86161 Subseq Hosp Care Lvl 2 Diagnoses Sepsis A41.9; R65.20; J96.01 Acute respiratory failure type: with hypoxia Sepsis acute organ dysfunction status: with acute organ dysfunction Sepsis type: sepsis due to unspecified organism Severe sepsis acute organ dysfunction type: acute respiratory failure Severe sepsis shock status: without septic shock Acute respiratory failure with hypoxia J96.01 Pneumonia J18.9 Laterality: unspecified laterality Lung location: unspecified part of lung Pneumonia type: due to unspecified organism Reactive airway disease J45.901 Asthma complication type: with acute exacerbation Asthma persistence: unspecified Asthma severity: unspecified severity Aspiration into respiratory tract T17. Encounter type: initial encounter Steroid-induced hyperglycemia R73.9; T38.0X5A Benign essential tremor G25.0 Atherosclerotic heart disease of [place] coronary artery without angina pectoris I25.10 [place] vs. transplanted heart: [place] heart Hypothyroidism E03.9 Hypothyroidism type: unspecified Hyperlipidemia E78.5 Hyperlipidemia type: unspecified Hypertension I10 Hypertension type: essential hypertension DVT prophylaxis Z29.9 (1) Aspiration into respiratory tract Encounter type: initial encounter Qualified Code(s): T17.908A - Unspecified foreign body in respiratory tract, part unspecified causing other injury, initial encounter (2) Reactive airway disease Asthma complication type: with acute exacerbation Asthma persistence: unspecified Asthma severity: unspecified severity Qualified Code(s): J45.901 - Unspecified asthma with (acute) exacerbation (3) Hyperlipidemia Hyperlipidemia type: unspecified Qualified Code(s): E78.5 - Hyperlipidemia, unspecified (4) Hypothyroidism Hypothyroidism type: unspecified Qualified Code(s): E03.9 - Hypothyroidism, unspecified (5) Atherosclerotic heart disease of [place] coronary artery without angina pectoris [place] vs. transplanted heart: [place] heart Qualified Code(s): I25.10 - Atherosclerotic heart disease of [place] coronary artery without angina pectoris (6) Sepsis Acute respiratory failure type: with hypoxia Sepsis acute organ dysfunction status: with acute organ dysfunction Sepsis type: sepsis due to unspecified organism Severe sepsis acute organ dysfunction type: acute respiratory failure Severe sepsis shock status: without septic shock Qualified Code(s): A41.9 - Sepsis, unspecified organism; R65.20 - Severe sepsis without septic shock; J96.01 - Acute respiratory failure with hypoxia (7) Hypertension Hypertension type: essential hypertension Qualified Code(s): I10 - Essential (primary) hypertension (8) Pneumonia Laterality: unspecified laterality Lung location: unspecified part of lung Pneumonia type: due to unspecified organism Qualified Code(s): J18.9 - Pneumonia, unspecified organism
[2019-05-17] MEDS: AMOXICILLIN/CLAVULANATE 875 MG TAB PO SCH (16:57)
[2019-05-17] MEDS: FLUTICASONE/VILANTEROL 200/25MCG 14 PUFFS/INHALER INH SCH (16:57)
[2019-05-17] MEDS: AZITHROMYCIN 250 MG TAB PO SCH (17:53)
[2019-05-18] MEDS: ALBUT/IPRATROP 3MG/0.5MG NEB 3 ML VIAL NEB SCH ×4 (03:38→15:36)
[2019-05-18] MEDS: LEVOTHYROXINE SODIUM 75 MCG TABLET PO SCH (05:55)
[2019-05-18 06:07] LABS: Hematocrit (blood only) 38.5 % (42-52); Hemoglobin 12.8 g/dL (14.0-18.0); Mean Corpuscular Hgb Conc 33.2 g/dL (32-36); Mean Corpuscular Volume 93.2 fL (80-100); Mean Platelet Volume 9.5 fL (7.4-10.4); Platelet Count 282 K/uL (130-400); RDW Coefficient of Variation 13.9 % (11.5-14.5); RDW Standard Deviation 47.3 fL (36.4-46.3); Red Blood Count 4.13 M/uL (4.7-6.1); White Blood Count 10.68 K/uL (4.8-10.8)
--- NOTE | 2019-05-18 07:14 | XRay Report ---
XR chest 2V PA/lateral CLINICAL HISTORY: ongoing hypoxia ?worsening pulmonary edema COMPARISON STUDY: 05/16/2019 FINDINGS: Mildly progressive bibasilar parenchymal infiltrative change. Prominence of pulmonary vascu lature persists. Pulmonary apices are clear. IMPRESSION: Mildly progressive bibasilar parenchymal infiltrative change. ACT 112: Negative or not required by law. The above report was generated using voice recognition software. It may contain grammatical, syntax or spelling errors. Electronically signed by: Rod Diana M.D. 05/18/2019 7:12 AM
[2019-05-18 07:30] LABS: BUN Creatinine Ratio 21.6 (10-20); Calcium 8.3 mg/dl (8.5-10.1); Creatinine Clr Calc Pharmacy 77.2 ml/min; Est GFR (African American) 92.7; Potassium 3.6 mmol/L (3.5-5.1)
[2019-05-18] MEDS: ENOXAPARIN INJ 40 MG/0.4 ML SYR SQ SCH (08:19)
[2019-05-18] MEDS: FLUTICASONE/VILANTEROL 200/25MCG 14 PUFFS/INHALER INH SCH (08:19)
[2019-05-18] MEDS: predniSONE 20 MG TAB PO SCH (08:20)
[2019-05-18] MEDS: ASPIRIN 81 MG ECTAB PO SCH (08:20)
[2019-05-18] MEDS: AMOXICILLIN/CLAVULANATE 875 MG TAB PO SCH ×2 (08:20→17:35)
[2019-05-18] MEDS: guaiFENesin 600 MG TABCR PO SCH (08:20)
[2019-05-18] MEDS: OMEGA-3 (PURIFIED FISH OIL) 1 GM CAP PO SCH (08:20)
[2019-05-18] MEDS: INSULIN ASPART 100 UNITS/ML 3 ML PEN SC SCH ×2 (08:21→13:07)
[2019-05-18] MEDS: INSULIN GLARGINE SOLOSTAR 100 UNITS/ML 3 ML PEN SC SCH (08:21)
[2019-05-18] MEDS ORDERED: FUROSEMIDE 20 MG in SYRINGE 0 ML IV ONE (11:30)
[2019-05-18] MEDS ORDERED: ALBUTEROL HFA 8 GM INHALER INH STA (16:24)
--- NOTE | 2019-05-18 16:36 | Discharge Summary ---
Date of Service May 18, 2019 Admission HPI Per Admitting Provider Fidel Holden is a 74yo C male presenting with cough and SOB. Patient reports ongoing symptoms x 5 days to include cough/wheeze/SOB. Also with fevers to 38/39C and chills x 4 days. Cough is moist sounding but unable to produce sputum. Patient developed shaking chills today and worsening shortness of breath today which prompted him to come to the ER. He denies weight gain/edema/orthopnea Denies abdominal pain/nausea/vomiting but he did have some watery diarrhea over the last few days which has since resolved. No sick contacts or recent travel. On arrival to the ER patient afebrile, tachycardic at 102 bpm, hypertensive at 190/90, respiratory rate of 24 saturating 87% on room air. He was placed on nasal cannula 3 L with saturations of 92 to 93% and persistent tachypnea. He was subsequently placed on Vapotherm 30 L/min, FiO2 40%. Patient reports feeling better but is still visibly tachypneic. ER course: Ceftriaxone x2 g, azithromycin x500 mg, albuterol 3 mL neb Admission Exam Per Admitting Provider General: patient ill in appearance, speaks dominantly [place], awake alert and oriented x4, communicating clearly and following commands, is at bedside and assists with interpretation, resting tremor at baseline per Skin: warm, dry, intact, no rashes or lesions HEENT: NC/AT, PERRL, EOMI, anicteric sclera, conjunctiva without injection, external ear normal to inspection and nontender, nares patent, moist mucus membranes, dentition intact, no oropharyngeal lesions, neck supple, trachea midline, no LAD, no thyromegaly, no JVD Heart: +S1/S2, regular, no m/r/g Lungs: Diminished air entry bilaterally, diffusely coarse with scattered rhonchi in bilateral lung laguerre, diffuse end expiratory wheezing Abd: +BS, soft, NT/ND, no masses/organomegaly/ascites Ext: warm, 2+ pulses in UE/LE bilaterally, no clubbing/cyanosis or edema Neuro: nonfocal, patient AA&O x 4, speech intact, no facial droop, moving all extremities on command with equal strength 5/5 Principal Diagnosis Community acquired pneumonia Sepsis Possible aspiration pneumonitis (inflammation of your lung from food going into your lung) Reactive airway disease Benign Essential Tremor Discharge Exam Constitutional well developed, well nourished and + language barrier ([place] speaker, pt short of breath, translating); no acute distress Eyes + anicteric sclerae; normal pupil size ENMT external ear and nose normal, oropharynx normal Neck trachea midline, no thyromegaly Respiratory normal respiratory effort and able to speak in complete sentences; no respiratory distress, no labored breathing, no retractions, does not use accessory muscles and no cough Auscultation: + crackles (bibasal mild); no diminished lung sounds, no rhonchi and no wheezes Cardiovascular Rate/Rhythm: regular rate and regular rhythm Heart Sounds: no murmur Vessels: no JVD Extremities: normal capillary refill and + pedal edema (trace b/l); no calf tenderness Gastrointestinal (Abdomen) normal bowel sounds, soft, nontender, no hepatosplenomegaly Musculoskeletal no cyanosis or clubbing, extremities motor strength 5/5 Skin no rashes, warm and dry Neurologic moves all extremities and awake; no focal motor deficits and not confused Motor/Sensory: + tremor (resting < postural, increased after steroids given) Psychiatric A+Ox3, euthymic affect Lymphatic no cervical or axillary lymphadenopathy Discharge Data Allergies Allergy/AdvReac Type Severity Reaction Status Date / Time pravastatin Allergy Mild Cramping Verified 05/05/19 11:04 of the Muscles Consultations 05/14/19 17:37 ED Decision to Admit Stat Ordered Studies 05/15/19 09:48 CT angio chest PE protocol Stat 05/16/19 12:45 FL video swallow Routine Hospital Course (1) Sepsis: Fidel Holden is a 74 year old male admitted to [facility] from May 14 to 2019 due to hypoxia, chills and shortness of breath. He was diagnosed with community acquired pneumonia with possible aspirations. Treated with intravenous ceftriaxone and azithromycin; switched to Augmentin on day prior to discharge. He should continue to use the flutter valve and incentive spirometry. He initially required high flow oxygen and BiPAP and hypoxia appeared out of proportion to imaging. He was also wheezing (no known asthma or COPD) and improved substantially with nebulizers and steroids. He continued to be wheezing in between nebulizer treatment however therefore he was started on Breo Ellipta. Recommend outpatient PFTs in approximately 6 weeks to see if this is required longer term. He did have an episode of aspiration but review by speech and language therapy suspected this was due to anxiety and worsening benign essential tremor (see below). Recommend eating only when sitting upright, take single bits, small sips, eating slowly. Informally walked around the chau and patient mildly short of breath on exertion with O2 sats afterwards of 92% therefore requires no O2 at home. He was also noted to have a benign essential tremor - the patient and his had lots of questions about this. Likely currently worse due to current infection and steroids. Recommend following up with your primary care physician once the infection and steroids have been resolved if tremor is still severe for discussion on treatment. . (2) Acute respiratory failure with hypoxia: (3) Pneumonia: (4) Reactive airway disease: (5) Aspiration into respiratory tract: (6) Steroid-induced hyperglycemia: (7) Benign essential tremor: (8) Atherosclerotic heart disease of [place] coronary artery without angina pectoris: (9) Hypothyroidism: (10) Hyperlipidemia: (11) Hypertension: Total Time Total Time Spent Total Time Spent (In Minutes): 50 Total Time Includes: Examination of the Patient, Discharge Planning and Medication Reconciliation Discharge Plan Discharge Items Patient Disposition: Home - Self-Care Reason For Visit: SOB,HYPOXIA Discharge Diagnosis: Community acquired pneumonia Sepsis Possible aspiration pneumonitis (inflammation of your lung from food going into your lung) Reactive airway disease Benign Essential Tremor Activity: Per Instructions section Lifting: Gradually increase as tolerated Bathing: No limitations Sexual Activity: When tolerated Exercise/Sports: Gradually increase as tolerated Non-emergency contact: Primary Care Provider Call non-emergency contact if: you have any medication questions Follow-up/Referrals: Kalyan Andrade MD [Primary Care Provider] - (within 1 week of discharge) Diet: Heart Healthy Addtl Attending Provider Instructions: You were admitted to [facility] from from May 14 to 2019 due to low oxygen levels, chills and shortness of breath. You were diagnosed with community acquired pneumonia with possible aspirations. This was treated with intravenous antibiotics and will be switched to Augmentin on discharge, please continue full course as prescribed. Continue to use your flutter valve and incentive spirometry to aid in your recovery. Gradually increase your physical activity as tolerated. Do not over exert yourself otherwise you are likely to become short of breath quickly. It can take up to 4 weeks to fully recover from pneumonia. You were also very wheezy and only improved with nebulizers and steroid treatment. This is suggestive of reactive airway disease such as asthma or COPD. You treated with steroids and nebulizers. Please continue prednisone (steroid) as prescribed - if you are getting worse after this finishes please call your primary care provider for further advice. Use albuterol regularly 4 times a day for the next 2 days, then as needed for shortness of breath, wheezing, chest tightness or cough. Continue Breo Ellipta daily for the next 14 days then follow up with your primary care provider to see if this is required longer term. Recommend having lung function tests in approximately 6 weeks. You also had an aspiration episode of food while admitted. Recommend eating only when sitting upright, take single bits, small sips, eat slowly. You were also noted to have a benign essential tremor. This is made worse by your current infection and steroids. Recommend following up with your primary care physician once the infection and steroids have been resolved if your tremor is still severe. Kind regards, Dr Henrique Holliday Pending Studies at Discharge: No Stand-Alone Forms: My [facility] [employer], Smoking Cessation Medications and DC Order Prescriptions: New amoxicillin-pot clavulanate [Augmentin] 875-125 mg Tablet 1 tab PO BIDM 4 Days Qty: 8 RF: 0 prednisone 20 mg Tablet See Rx Instructions .ROUTE .COMPLEX Qty: 6 RF: 0 Breo Ellipta 200-25 mcg/dose Blister With Device 1 ea inhalation DAILY 7 Days Qty: 60 RF: 0 albuterol sulfate 90 mcg/actuation aerosol powdr breath activated 2 puffs INH Q6H PRN (Reason: shortness of breath or wheezing) Qty: 1 RF: 0 Continued levothyroxine [Synthroid] 75 mcg tablet 75 mcg PO DAILY Qty: 90 RF: 3 omega-3 acid ethyl esters 1 gram capsule 1 cap PO DAILY RF: 0 aspirin [Aspirin Low Dose] 81 mg Tablet,Delayed Release (Dr/Ec) 81 mg PO DAILY RF: 0 Discharge Orders: Discharge Order (Routine); Ordered 05/18/19 Ordered By: Henrique Holliday Admission Data Admit Date/Time: 05/14/19 19:36 Attending Provider: Henrique Holliday Admit Provider: Ankita Snell Primary Care Provider: Kalyan Andrade Other Providers: Ankita Snell Other Interventions: Discharge Summary Assessment (RN) Last Done: 05/18/19 16:37 DC Date/Time DO NOT enter until pt leaves facility: 05/18/19 18:04 Coding Level of Care Code D/C Day Management >30 mins Diagnoses Sepsis A41.9; R65.20; J96.01 Acute respiratory failure type: with hypoxia Sepsis acute organ dysfunction status: with acute organ dysfunction Sepsis type: sepsis due to unspecified organism Severe sepsis acute organ dysfunction type: acute respiratory failure Severe sepsis shock status: without septic shock Acute respiratory failure with hypoxia J96.01 Pneumonia J18.9 Laterality: unspecified laterality Lung location: unspecified part of lung Pneumonia type: due to unspecified organism Reactive airway disease J45.901 Asthma complication type: with acute exacerbation Asthma persistence: unspecified Asthma severity: unspecified severity Aspiration into respiratory tract T17.908A Encounter type: initial encounter Steroid-induced hyperglycemia R73.9; T38.0X5A Benign essential tremor G25.0 Atherosclerotic heart disease of [place] coronary artery without angina pectoris I25.10 [place] vs. transplanted heart: [place] heart Hypothyroidism E03.9 Hypothyroidism type: unspecified Hyperlipidemia E78.5 Hyperlipidemia type: unspecified Hypertension I10 Hypertension type: essential hypertension
[2019-05-18] MEDS: AZITHROMYCIN 250 MG TAB PO SCH (17:35)
[2019-05-19] MEDS ORDERED: FUROSEMIDE 20 MG in SYRINGE 0 ML IV SCH (09:00)
== END 2019-05-18 18:04 | disposition home or self-care (01) | DRG 871 ==
LOC: ED 16:11 → 2S 19:36 → SUATTDRO 19:36 → 2S 20:39 → 4W 05-17 10:21

== ENCOUNTER 2022-11-14 13:49 | Observation (INO) ==
--- NOTE | 2022-11-14 14:00 | ED Triage Note ---
Date of Service November 14, 2022 History of Present Illness This patient was briefly evaluated while in triage. An abbreviated physical exam was performed. This patient is a 77-year-old Male who presents to the ED for evaluation of chest pain and left arm pain. Symptoms roughly once or twice daily for 3 weeks. Has hx of CAD. is translating, and states BP has been elevated. No SOB. CP may worsen with activity. Physical Exam Limited Triage Exam: VITALS: Vitals are noted on the nurse's note and reviewed by myself. Vital signs stable. GENERAL: Well-developed, well-nourished, white male in NAD. HEART: Regular rate and rhythm LUNGS: Clear to auscultation bilaterally without wheezes, rales or rhonchi. No retractions or accessory muscle use. NEURO: Patient was alert and oriented to person place and time. Initial orders for labs and / or imaging were placed and patient was placed in the waiting area until a bed is available. Please see further documentation for the full ED course. MDM / Impression Impression Impression: Chest pain Impression: Chest pain Qualifiers: Chest pain type: unspecified Qualified Code(s): R07.9 - Chest pain, unspecified
--- NOTE | 2022-11-14 14:26 | XRay Report ---
TWO VIEW CHEST CLINICAL HISTORY: Atypical chest pain. FINDINGS: PA and lateral chest radiographs are compared to study dated 05/18/2019. Correlation is made with chest CT dated 05/15/2019. The heart is enlarged. The pulmonary vasculature is noncongested. The re is bibasilar scarring/atelectasis. The lungs and pleural spaces are clear. There is no pneumothor ax. The skeletal structures are osteopenic. The bony thorax appears intact. Degenerative change is no rebeca in the spine. IMPRESSION: Mild cardiomegaly with no active disease in the chest. ACT 112: Negative or not required by law. Electronically signed by: Miguel Roman M.D. 11/14/2022 2:25 PM
[2022-11-14 14:31] LABS: Basophils # (auto) 0.02 K/uL (0-0.2); Basophils % (auto) 0.3 %; Eosinophils % (auto) 1.3 %; Hematocrit (blood only) 46.1 % (42.0-52.0); Immature Granulocytes # (auto) 0.05 K/uL (0.01-0.20); Immature Granulocytes % (auto) 0.6 %; Lymphocytes # (auto) 3.32 K/uL (1.2-3.4); Lymphocytes % (auto) 42.6 %; Mean Corpuscular Hemoglobin 31.1 pg (25.0-34.0); Mean Corpuscular Hgb Conc 34.7 g/dL (32.0-36.0); Mean Corpuscular Volume 89.5 fL (80.0-100.0); Mean Platelet Volume 9.6 fL (9.4-12.4); Monocytes # (auto) 0.57 K/uL (0.11-0.59); Monocytes % (auto) 7.3 %; Neutrophils # (auto) 3.74 K/uL (1.40-6.50); Neutrophils % (auto) 47.9 %; Platelet Count 198 K/uL (130-400); RDW Standard Deviation 42.7 fL (36.4-46.3); Red Blood Count 5.15 M/uL (4.70-6.10)
[2022-11-14 15:00] LABS: Alanine Aminotransferase 20 U/L (7-52); Albumin Globulin Ratio 1.3 (0.9-2); Albumin Level 4.3 gm/dl (3.4-5.0); Alkaline Phosphatase 89 U/L (34-104); Anion Gap 7 (3-11); Aspartate Aminotransferase 18 U/L (13-39); Bilirubin,Total 0.7 mg/dl (0.2-1.0); Blood Urea Nitrogen 18 mg/dl (6-23); Calcium 9.2 mg/dl (8.6-10.3); Carbon Dioxide 24 mmol/L (21-32); Chloride 107 mmol/L (98-107); Est GFR (African American) 83.2 ml/min; Est GFR (Non-African American) 71.8 ml/min; Globulin 3.3 gm/dl (2.5-4.0); Glucose 139 mg/dl (70-99(Fasting)); Lipase 32 U/L (11-82); Potassium 4.1 mmol/L (3.5-5.1); Sodium 138 mmol/L (136-145); Total Protein 7.6 gm/dl (6.0-8.3); Troponin I High Sensitivity 7.4 pg/ml (0-20)
[2022-11-14 15:10] LABS: Partial Thromboplastin Ratio 1.1; Partial Thromboplastin Time 29.9 Seconds (21.0-31.0); Prothrombin Time 10.9 Seconds (9.0-12.0)
[2022-11-14] MEDS ORDERED: ASPIRIN CHEW 324 MG ONE (15:39)
--- NOTE | 2022-11-14 16:11 | Emergency Department Note ---
History of Present Illness General Chief Complaint: Chest Pain Stated Complaint: CHEST PAIN, HIGH BP Time Seen by Provider: 11/14/22 15:25 Source: patient and family ( who is translating) History of Present Illness Provider Complaint: chest pain Onset (ago): week(s) Onset (Weeks): 3 Duration: intermittent Onset: during exertion Pain Location: substernal and left chest Pain Radiation: none Severity: moderate Maximum Pain Intensity: 4 Current Pain Intensity: 1 Quality: + aching, + heaviness and + dull Relieved By: + rest Exacerbated By: + exertion Context: no recent illness, no recent surgery, no recent immobilization, no recent travel, no trauma/injury, no new medications or no history of DVT/PE Associated symptoms: no nausea, no vomiting, no dyspnea, no syncope, no palpitations, no fever, no cough or no leg swelling Treatments prior to arrival: none Home Medications Medication Instructions Recorded Confirmed Type omega-3 acid ethyl esters 1 gram 1 cap PO DAILY 09/17/18 07/31/22 History capsule aspirin 81 mg tablet,delayed 81 mg PO DAILY 05/14/19 07/31/22 History release (Sarah Low Dose Aspirin) levothyroxine 75 mcg tablet 75 mcg PO DAILY #90 tabs 12/12/21 07/31/22 Rx tamsulosin 0.4 mg capsule 0.4 mg PO DAILY #90 caps 07/05/22 07/31/22 Rx ezetimibe 10 mg tablet (Zetia) 10 mg PO DAILY #30 tabs 07/31/22 07/31/22 Rx Allergies Allergy/AdvReac Type Severity Reaction Status Date / Time pravastatin AdvReac Intermediate Cramping Verified 07/31/22 13:11 of the Muscles statin Allergy Intermediate Uncoded 07/31/22 14:00 Past Med/Surg History Medical History Acute respiratory failure with hypoxia Aspiration into respiratory tract Atherosclerotic heart disease of [place] coronary artery without angina pectoris Benign essential tremor BPH NOS w ur obs/LUTS CHF (congestive heart failure) Hyperlipidemia Hypertension Hypothyroidism Pneumonia Sepsis Surgical History Hx of appendectomy Hx of hernia repair Hx of transurethral resection of prostate Family History Mother Hypotension Benign essential tremor Family/Other Benign essential tremor Child Denies family history of Ovarian cancer Prostate cancer Myocardial infarction Breast cancer Colorectal cancer Social History Smoking Status: Never smoker Second Hand Exposure: No; Do You Dip or Chew Tobacco: No; Hx Alcohol Use: No Hx Substance Use: No Preferred Language: Bahamian Communication Ability: Effective Communication Tools: IPad and Language Line Line Production Cook Visual Impairment: No Limitations Hearing Ability: Normal Line Production Cook Required: No Beliefs That Will Affect Care: None marital status: Current Living Situation: Spouse current occupational status: retired Feels Safe at Home: Yes Childhood Exposure to Second-Hand Smoke: No Dental Care, Regularly: Yes Physical Activity Frequency: Does not Exercise Seatbelt Use: always Sunscreen Use: No Assistive Devices: None Physical Exam Vital Signs Vital Signs - 24 hr 11/14/22 13:57 11/14/22 15:41 11/14/22 15:41 Temperature 36.6 C Temperature Source Temporal Artery Scan Pulse Rate 71 Pulse Rate [Apical] 67 Pulse Rhythm [Apical] Regular Respiratory Rate 17 18 Respiratory Effort / Characteristics Non-Labored Spontaneous Respiratory Depth Normal Normal Respiratory Pattern Regular Blood Pressure 145/83 H Blood Pressure [Right Arm] 166/104 H Blood Pressure Mean 103 Blood Pressure Mean [Right Arm] 124 Blood Pressure Position [Right Arm] Lying Pulse Oximetry 94 93 93 Oxygen Delivery Method Room Air Room Air Room Air Sepsis Recent Fever Within 48 Hours No Sepsis New/Unexplained Change in Mental Status No Sepsis Action Taken by Nursing No Action Required 11/14/22 15:55 Temperature Temperature Source Pulse Rate 65 Pulse Rate [Apical] Pulse Rhythm [Apical] Respiratory Rate Respiratory Effort / Characteristics Respiratory Depth Respiratory Pattern Blood Pressure Blood Pressure [Right Arm] Blood Pressure Mean Blood Pressure Mean [Right Arm] Blood Pressure Position [Right Arm] Pulse Oximetry Oxygen Delivery Method Sepsis Recent Fever Within 48 Hours Sepsis New/Unexplained Change in Mental Status Sepsis Action Taken by Nursing Physical Exam GENERAL: oriented to person, place, and time. appears well-developed and well- nourished. HENT: Exam performed. - Head: Normocephalic and atraumatic. EYES: Conjunctivae and EOM are normal. Right eye exhibits no discharge. Left eye exhibits no discharge. No scleral icterus. NECK: Normal range of motion. Neck supple. No JVD present. CV: Normal rate, regular rhythm, normal heart sounds and intact distal pulses. There is no peripheral edema. Palpable radial pulses bue. PULM/CHEST: Effort normal and breath sounds normal. No respiratory distress. No stridor. no wheezes. no rales. ABD: The abdomen is soft. There is no tenderness. NEURO: Motor and sensation grossly intact. SKIN: Skin is warm and dry. He is not diaphoretic. PSYCH: normal mood and affect. Behavior is normal. Judgment and thought content normal. Course Course 1525: The patient was evaluated in room B11. A complete history and physical exam was performed Administered Medications Discontinued Medications Aspirin (Aspirin Chew 324 Mg) Confirm Administered Dose 324 mg .ROUTE .PivotLink-MED ONE Stop: 11/14/22 15:40 Last Admin: 11/14/22 15:39 Dose: 324 mg Documented By: COMPA Medical Decision Making Laboratory Data Attestation: I reviewed the patient's lab results. 11/14/22 14:07 11/14/22 14:07 Labs: Lab Results 11/14/22 11/14/22 11/14/22 Range/Units 14:07 14:07 14:07 WBC 7.80 (4.8-10.8) K/ul RBC 5.15 (4.70-6.10) M/uL Hgb 16.0 (14.0-18.0) g/dl Hct 46.1 (42.0-52.0) % MCV 89.5 (80.0-100.0) fL MCH 31.1 (25.0-34.0) pg MCHC 34.7 (32.0-36.0) g/dL RDW Std Deviation 42.7 (36.4-46.3) fL RDW Coeff of Mata 13.0 (11.5-14.5) % Plt Count 198 (130-400) K/uL MPV 9.6 (9.4-12.4) fL Immature Gran % (Auto) 0.6 % Neut % (Auto) 47.9 % Lymph % (Auto) 42.6 % [place] % (Auto) 7.3 % Eos % (Auto) 1.3 % Baso % (Auto) 0.3 % Neut # (Auto) 3.74 (1.40-6.50) K/uL Lymph # (Auto) 3.32 (1.2-3.4) K/uL [place] # (Auto) 0.57 (0.11-0.59) K/uL Eos # (Auto) 0.10 (0-0.50) K/uL Baso # (Auto) 0.02 (0-0.2) K/uL Immature Gran # (Auto) 0.05 (0.01-0.20) K/uL PT 10.9 (9.0-12.0) Seconds INR 1.0 (0.9-1.1) APTT 29.9 (21.0-31.0) Seconds PTT Ratio 1.1 Sodium 138 (136-145) mmol/L Potassium 4.1 (3.5-5.1) mmol/L Chloride 107 (98-107) mmol/L Carbon Dioxide 24 (21-32) mmol/L Anion Gap 7 (3-11) BUN 18 (6-23) mg/dl Creatinine 1.00 (0.6-1.4) mg/dl Est Cr Clr Drug Dosing Not Reportable Est GFR ( Amer) 83.2 ml/min Est GFR (Non-Af Amer) 71.8 ml/min BUN/Creatinine Ratio 18.0 (10-20) Glucose 139 H (70-99(Fasting)) mg/dl Calcium 9.2 (8.6-10.3) mg/dl Total Bilirubin 0.7 (0.2-1.0) mg/dl AST 18 (13-39) U/L ALT 20 (7-52) U/L Alkaline Phosphatase 89 (34-104) U/L Troponin I High Sens 7.4 (0-20) pg/ml Total Protein 7.6 (6.0-8.3) gm/dl Albumin 4.3 (3.4-5.0) gm/dl Globulin 3.3 (2.5-4.0) gm/dl Albumin/Globulin Ratio 1.3 (0.9-2) Lipase 32 (11-82) U/L Imaging Data Chest x-ray: Attestation: I personally reviewed and interpreted this imaging study as follows: My impression: Chest x-ray negative. Airway clear. No pneumothorax. No consolidation. No cardiomegaly or cephalization.. No free air under the diaphragm. No fractures of the skeletal structures. Radiologist's impression: Chest X-Ray 11/14/22 13:58 TWO VIEW CHEST CLINICAL HISTORY: Atypical chest pain. FINDINGS: PA and lateral chest radiographs are compared to study dated 05/18/2019. Correlation is made with chest CT dated 05/15/2019. The heart is enlarged. The pulmonary vasculature is noncongested. There is bibasilar scarring/atelectasis. The lungs and pleural spaces are clear. There is no pneumothorax. The skeletal structures are osteopenic. The bony thorax appears intact. Degenerative change is noted in the spine. IMPRESSION: Mild cardiomegaly with no active disease in the chest. ACT 112: Negative or not required by law. Electronically signed by: Miguel Roman M.D. 11/14/2022 2:25 PM ECG Data Attestation: I personally reviewed and interpreted this ECG as follows: Additional Comments: EKG #1 at 1407: Sinus rhythm with rate of 67. ME QRS and QTc interval's are within normal limits. There is no ST elevation or ST depression. There is baseline wander and artifact secondary to patient movement. EKG #2 at 1533: Sinus rhythm with rate 66. ME QRS and QTc intervals within normal limits and no ST elevation or ST depression. MDM Narrative Cardiac monitoring: An order was placed for continuous cardiac monitoring. The monitor shows a rate of 60 with sinus rhythm interpreted by me Patient was seen during a time of extreme volume and extreme acuity in the emergency department. Nursing triage protocols were initiated and labs were drawn by protocol in the triage area. Labs and imaging within normal limits. While the patient was being walked back from the triage area to his room he started developing pain over his left chest going into his substernal area. Repeat EKG was normal. Patient reports that his pain felt like pressure and that it resolved after he sat on the bed and rested. Patient will be admitted for chest pain rule out ACS. Dr. Miya Frazier hospitalist team will be notified. HEART Score for Major Cardiac Events from [email or web address] on 11/14/2022 All calculations should be rechecked by clinician prior to use RESULT SUMMARY: 6 points Moderate Score (4-6 points) Risk of MACE of 12-16.6%. INPUTS: History > 2 = Highly suspicious EKG > 0 = Normal Age > 2 = >=5 Risk factors > 2 = >= risk factors or history of atherosclerotic disease Initial troponin > 0 = <=ormal limit Impression & Plan Chest pain Discharge Plan Visit Data Chief Complaint: Chest Pain Stated Complaint: CHEST PAIN, HIGH BP ED Provider: Fuentes Lee Discharge Problem: Chest pain Patient Disposition: Being Evaluated by Hospitalist Forms Stand Alone Forms: [facility] Prescriptions Prescriptions: No Action tamsulosin 0.4 mg capsule 0.4 mg PO DAILY Qty: 90 3RF ezetimibe [Zetia] 10 mg tablet 10 mg PO DAILY Qty: 30 2RF levothyroxine 75 mcg tablet 75 mcg PO DAILY Qty: 90 3RF Rx Instructions: SPOUSE DENIES TAKING THIS MED. omega-3 acid ethyl esters 1 gram capsule 1 cap PO DAILY aspirin [Sarah Low Dose Aspirin] 81 mg Tablet,Delayed Release (Dr/Ec) 81 mg PO DAILY Referrals Referrals: Kalyan Andrade MD [Primary Care Provider] -
--- NOTE | 2022-11-14 16:39 | History & Physical Report ---
Date of Service November 14, 2022 Assessment & Plan (1) Crescendo angina: Plan: Very concerning history for crescendo angina, would favor cardiac catheterization rather than further stress test but will leave final decision to cardiology TTE ASA 324mg PO given in ER, continue 81mg PO daily Start metoprolol tartrate 25mg PO BID Start atorvastatin 40mg PO daily Start nitroglycerin 1 inch patch mainly to help with his BP but also to help stop the pain coming back overnight given he isn't the best historian/compliant patient for letting us know and there is a language barrier Lipid panel and HbA1C with AM Labs Strict bed rest NPO after midnight for possible cardiac catheterization Consult cardiology (2) BPH with obstruction/lower urinary tract symptoms: Plan: Continue tamsulosin (3) Hypothyroidism: Plan: Continue levothyroxine - suspect not taking regularly previously given last picked up in November 2021 however reports current compliance (4) Hypertension: Plan: Start nitroglycerin 1 inch paste Plan VTE Prophylaxis - deferred in case of needing IV heparin for resting chest pain Diet - heart healthy, NPO after midnight Disposition - observation to PCU Admission and Anticipated Discharge Date Admission Date: November 14, 2022 History of Present Illness Chief Complaint: Chest pain Primary Care Provider: Kalyan Andrade MD Fidel Holden is a 77 year old male who presents to the ER with crescendo exertional chest pain concerning for unstable angina. Patient seen using [employer] service (Lizabeth). 3 months of exertional substernal chest pain much worse over the last three weeks when it has been happening daily. Now walking more slowly otherwise he would get chest pain. Relived with rest but seldom will occur at rest. Lasting up to 30 minutes. Associated diaphoresis and shortness of breath. No palpitations, orthopnea, paroxysmal nocturnal dyspnea or leg swelling. Most severe pain 2 days ago. Radiation to his left jaw and arm. No acid taste in his mouth. No previous history of heart attacks. Generally non compliant with medications but more recently he has been better taking his levothyroxine and tamsulosin. Did not take aspirin fo the last three days. Known high cholesterol with chart reports previous intolerance to pravastatin although he is unable to remember being on this. Chest pain last occurred while walking to his room from triage. Initially reported ongoing constant left arm pain but on further clarification with the case work aide he denies any chest pain or right arm pain when seen as was advised to let his nurses know if this recurs. Allergies Allergy/AdvReac Type Severity Reaction Status Date / Time pravastatin AdvReac Intermediate Cramping Verified 07/31/22 13:11 of the Muscles statin Allergy Intermediate Unknown Uncoded 11/14/22 17:37 Home Medications Medication Instructions Recorded Confirmed Type omega-3 acid ethyl esters 1 gram 1 cap PO 2XWK 09/17/18 11/14/22 History capsule aspirin 81 mg tablet,delayed 81 mg PO DAILY 05/14/19 11/14/22 History release (Sarah Low Dose Aspirin) levothyroxine 75 mcg tablet 75 mcg PO DAILY #90 tabs 12/12/21 11/14/22 Rx tamsulosin 0.4 mg capsule 0.4 mg PO DAILY #90 caps 07/05/22 11/14/22 Rx ezetimibe 10 mg tablet (Zetia) 10 mg PO DAILY #30 tabs 07/31/22 11/14/22 Rx Past Med/Surg History Medical History Acute respiratory failure with hypoxia Aspiration into respiratory tract Atherosclerotic heart disease of [place] coronary artery without angina pectoris Benign essential tremor BPH NOS w ur obs/LUTS CHF (congestive heart failure) Hyperlipidemia Hypertension Hypothyroidism Pneumonia Sepsis Surgical History Hx of appendectomy Hx of hernia repair Hx of transurethral resection of prostate Family History Mother Hypotension Benign essential tremor Family/Other Benign essential tremor Child Denies family history of Ovarian cancer Prostate cancer Myocardial infarction Breast cancer Colorectal cancer Social History Smoking Status: Never smoker Second Hand Exposure: No; Do You Dip or Chew Tobacco: No; Hx Alcohol Use: No Hx Substance Use: No Preferred Language: South Korean Communication Ability: Effective Communication Tools: IPad and Language Line Financial Investment Adviser Visual Impairment: No Limitations Hearing Ability: Normal Financial Investment Adviser Required: No Beliefs That Will Affect Care: None marital status: Current Living Situation: Spouse current occupational status: retired Other Information That Helps Us Care for You: No Feels Safe at Home: Yes Safety Concerns: Feels Safe At This Time Childhood Exposure to Second-Hand Smoke: No Dental Care, Regularly: Yes Physical Activity Frequency: Does not Exercise Seatbelt Use: always Sunscreen Use: No Assistive Devices: None Review of Systems Review of Systems: All systems reviewed & are unremarkable except as noted in HPI & below Physical Exam Constitutional: WD/WN, vitals as above ENMT: external ear and nose normal, oropharynx normal Respiratory: normal respiratory effort, lungs clear to auscultation Cardiovascular: RRR, no murmur, no edema Gastrointestinal (Abdomen): normal bowel sounds, soft, nontender, no hepatosplenomegaly Musculoskeletal: no cyanosis or clubbing, extremities motor strength 5/5 Skin: no rashes, warm and dry Neurologic: moves all extremities and awake; not confused Psychiatric: Orientation: alert and oriented x 3 Genitourinary: no CVA tenderness Results & Data Results & Data Vital Signs (Past 12 Hours) Vital Signs Temp Pulse Pulse Resp BP BP Pulse Ox 11/14/22 15:55 65 11/14/22 15:41 93 11/14/22 15:41 67 18 166/104 H 93 11/14/22 13:57 36.6 C 71 17 145/83 H 94 O2 Del Method 11/14/22 15:55 11/14/22 15:41 Room Air 11/14/22 15:41 Room Air 11/14/22 13:57 Room Air Laboratory Results Abnormal lab results 11/14/22 Range/Units 14:07 Glucose 139 H (70-99(Fasting)) mg/dl Diagnostic Findings TWO VIEW CHEST CLINICAL HISTORY: Atypical chest pain. FINDINGS: PA and lateral chest radiographs are compared to study dated 05/18/2019. Correlation is made with chest CT dated 05/15/2019. The heart is enlarged. The pulmonary vasculature is noncongested. There is bibasilar scarring/atelectasis. The lungs and pleural spaces are clear. There is no pne umothorax. The skeletal structures are osteopenic. The bony thorax appears intact. Degenerative change is noted in the spine. IMPRESSION: Mild cardiomegaly with no active disease in the chest. Medications Administered ER Medications Given: Aspirin 324mg PO ECG Rate (beats per minute): 67 Rhythm: normal sinus Findings: + LAFB Comparison ECG Date: from (May 15, 2019) Change: the following changes noted (Left anterior fascicular block now present) Code Status & VTE Plan Code Status Full VTE Prophylaxis Plan VTE Prophylaxis will be ordered: No PG Care Time/CCT Total # of Minutes Spent Total Time Spent with Patient: Total time spent is greater than 50% in coordination of care (as documented) at patient's floor/unit and/or counseling patient: Coding Level of Care Code 23289 INT INP/OBS CARE 3/75MIN Diagnoses Crescendo angina I20.0 BPH with obstruction/lower urinary tract symptoms N40.1; N13.8 Hypothyroidism E03.9 Hypothyroidism type: unspecified Hypertension I10 Hypertension type: essential hypertension (3) Hypothyroidism Hypothyroidism type: unspecified Qualified Code(s): E03.9 - Hypothyroidism, unspecified (4) Hypertension Hypertension type: essential hypertension Qualified Code(s): I10 - Essential (primary) hypertension
[2022-11-14 17:29] LABS: Troponin I High Sensitivity 6.5 pg/ml (0-20)
[2022-11-14] MEDS ORDERED: NITROGLYCERIN SL 0.4 MG/TAB TAB SL STA (17:56)
[2022-11-14] MEDS ORDERED: Heparin IV Adult Wt-Based Low-Dose WITH Bolus Protocol IV STA (17:56)
[2022-11-14] MEDS ORDERED: HEPARIN SOD (PORCINE) 1000 UNIT/ML IV ONE (18:12)
[2022-11-14] MEDS ORDERED: NITROGLYCERIN 2% OINTMENT 30GM TUBE EXT STA (18:13)
[2022-11-14] MEDS ORDERED: HEPARIN SODIUM/DEXTROSE 25,000 UNITS/500 ML BAG IV SCH (18:15)
[2022-11-14] MEDS ORDERED: NITROGLYCERIN 2% OINTMENT 30GM TUBE EXT SCH (18:15)
--- NOTE | 2022-11-14 18:15 | Electrocardiogram Report ---
Test Reason : Blood Pressure : / mmHG Vent. Rate : 067 BPM Atrial Rate : 067 BPM P-R Int : 186 ms QRS Dur : 090 ms QT Int : 412 ms P-R-T Axes : 046 -74 -06 degrees QTc Int : 435 ms Poor data quality, interpretation may be adversely affected Normal sinus rhythm Pulmonary disease pattern Abnormal ECG When compared with ECG of 15-MAY-2019 09:06, Premature atrial complexes are no longer Present Confirmed by Pascual Jones ([id number]) on 11/14/2022 6:14:51 PM Referred By: REFERRED SELF Confirmed By:Pascual Jones
[2022-11-14] MEDS ORDERED: METOPROLOL TARTRATE 25 MG TAB PO STA (18:17)
[2022-11-14 18:56] LABS: Magnesium 2.3 mg/dl (1.7-2.4)
[2022-11-14] MEDS: ATORVASTATIN 40 MG TAB PO SCH ×2 (21:38→21:53)
[2022-11-14] MEDS: METOPROLOL TARTRATE 25 MG TAB PO SCH (21:53)
[2022-11-15] MEDS: NITROGLYCERIN 2% OINTMENT 30GM TUBE EXT SCH ×4 (01:03→21:30)
[2022-11-15] MEDS: LEVOTHYROXINE SODIUM 75 MCG TABLET PO SCH (05:51)
[2022-11-15 06:03] LABS: Basophils # (auto) 0.02 K/uL (0-0.2); Basophils % (auto) 0.2 %; Eosinophils # (auto) 0.13 K/uL (0-0.50); Eosinophils % (auto) 1.6 %; Hematocrit (blood only) 44.4 % (42.0-52.0); Hemoglobin 15.1 g/dl (14.0-18.0); Immature Granulocytes # (auto) 0.04 K/uL (0.01-0.20); Immature Granulocytes % (auto) 0.5 %; Lymphocytes # (auto) 3.11 K/uL (1.2-3.4); Lymphocytes % (auto) 38.8 %; Mean Corpuscular Hemoglobin 30.7 pg (25.0-34.0); Mean Corpuscular Volume 90.2 fL (80.0-100.0); Mean Platelet Volume 9.3 fL (9.4-12.4); Monocytes # (auto) 0.71 K/uL (0.11-0.59); Monocytes % (auto) 8.9 %; Neutrophils # (auto) 4.01 K/uL (1.40-6.50); Platelet Count 176 K/uL (130-400); RDW Standard Deviation 42.7 fL (36.4-46.3); Red Blood Count 4.92 M/uL (4.70-6.10); White Blood Count 8.02 K/ul (4.8-10.8)
[2022-11-15 06:17] LABS: BUN Creatinine Ratio 19.1 (10-20); Calcium 8.9 mg/dl (8.6-10.3); Chol HDL Ratio 6.8 (0-5); Creatinine Clr Calc Pharmacy 76.6 ml/min; Est GFR (African American) 89.6 ml/min; Est GFR (Non-African American) 77.3 ml/min
[2022-11-15 06:24] LABS: Troponin I High Sensitivity 6.1 pg/ml (0-20)
--- NOTE | 2022-11-15 08:18 | Hospitalist Progress Note ---
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 for crescendo angina, would favor cardiac catheterization rather than further stress test but will leave final decision to cardiology TTE ASA 324mg PO given in ER, continue 81mg PO daily Start metoprolol tartrate 25mg PO BID Start atorvastatin 40mg PO daily Start nitroglycerin 1 inch patch mainly to help with his BP but also to help stop the pain coming back overnight given he isn't the best historian/compliant patient for letting us know and there is a language barrier Lipid panel and HbA1C with AM Labs Strict bed rest NPO after midnight for possible cardiac catheterization Consult cardiology 11/15 troponin negative x 4, no CP reported overnight, however +stress testing and cardiology consulted/NPO for cath ASA 81mg daily continued (TBD at dc pending cath results) Metoprolol increased to 50mg BID (had not gotten evening dose or this morning due to HR to 50/60s to note) Continue NPO for cath, hopefully soon Cardiac catheterization today planned but code blue and was pushed back --> 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 Lipid panel is improved compared to prior (TRG 396--> 199, Chol 289--> 218, LDL 175--> 146. HDL about the same at 32) On Zetia --> depending cath results, Started on lipitor 40mg HS and monitor abilty to tolerate If unable to tolerate any PO statin, injectable agent to be considered. 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: Plan: Continue tamsulosin (3) Hypothyroidism: Plan: Continue levothyroxine 75mcg daily - TSH 7.6, but free T4 not low --> suspect not taking regularly previously given last picked up in November 2021 (however reports current compliance -- see PCP notes w/ similar concerns/compliance) Rec repeat TFT w/ PCP/adjustments to synthroid if improvement on compliance to avoid overtreating at present (4) Hypertension: Plan: Elevated on admission, not on any medications at home Started nitroglycerin 1 inch paste Metoprolol as above, increased to 50mg BID per cardiology --> TO GET DOSE NOW ABOVE, NOT GIVEN LAST NIGHT OR THIS MORNING Monitor Plan continued inpatient stay, NPO for cath (next case) dc plan TBD pending cath evaluation Admission and Anticipated Discharge Date Admission Date: November 14, 2022 Supervising Physician Co-Signing Physician Notes The patient was not seen by me. The chart was reviewed. Case discussed with TIM Prince. Agree with assessment and plan Subjective patient this morning with positive stress testing given negative troponins, and sent to [facility] for further evaluation given 3 months of exertional chest pain, worsening and happening with minimal activity. eval in [facility] waiting given code blue which pushes him back. awaiting cath. at bedside, bleach packer pad utilized. ongoing CP for 2-3 months, worse and now occurring at rest. states still having chest pain 7/10, stabbing in nature (similar to when he came in) to his L chest/breast. Discussed w/ nursing to give morphine for pain, SL nitro x 1 now and metoprolol as not given this morning. Discussed w/ supervising doc and will start heparin gtt as well while awaiting cath given ongoing pain. Physical Exam Physical Exam: General: WD/WN obese male sitting up in bed, at bedside, NAD HEENT: head normocephalic, atraumatic, mm slightly dry, trachea midline Resp: CTA, no w/c/r, slightly diminished in the bases, on room air Chest: nontender to palpation (but reporting pain under L breast in area of "chest pain") CV: RRR, no signficiant mrg, no pitting edema/calf tenderness GI: +BS, soft/NT Neuro/MSK: no focal deficits Psych: AOx3, cooperative Results & Data Results & Data Vital Signs (Past 12 Hours) Vital Signs Temp Pulse Pulse Resp BP Pulse Ox O2 Del Method 11/15/22 07:07 36.5 C 56 L 20 148/89 H 94 Room Air 11/15/22 03:17 36.5 C 53 L 16 143/77 H 94 Room Air 11/15/22 02:52 54 L 11/14/22 20:25 57 L 11/14/22 22:52 36.7 C 56 L 20 152/81 H 93 Room Air 11/14/22 20:33 36.5 C 58 L 18 173/89 H 95 Room Air Laboratory Results 11/15/22 11/15/22 11/15/22 Range/Units 05:40 05:40 05:40 WBC 8.02 (4.8-10.8) K/ul RBC 4.92 (4.70-6.10) M/uL Hgb 15.1 (14.0-18.0) g/dl Hct 44.4 (42.0-52.0) % MCV 90.2 (80.0-100.0) fL MCH 30.7 (25.0-34.0) pg MCHC 34.0 (32.0-36.0) g/dL RDW Std Deviation 42.7 (36.4-46.3) fL RDW Coeff of Mata 13.0 (11.5-14.5) % Plt Count 176 (130-400) K/uL MPV 9.3 L (9.4-12.4) fL Immature Gran % (Auto) 0.5 % Neut % (Auto) 50.0 % Lymph % (Auto) 38.8 % Cache % (Auto) 8.9 % Eos % (Auto) 1.6 % Baso % (Auto) 0.2 % Neut # (Auto) 4.01 (1.40-6.50) K/uL Lymph # (Auto) 3.11 (1.2-3.4) K/uL Cache # (Auto) 0.71 H (0.11-0.59) K/uL Eos # (Auto) 0.13 (0-0.50) K/uL Baso # (Auto) 0.02 (0-0.2) K/uL Immature Gran # (Auto) 0.04 (0.01-0.20) K/uL PT (9.0-12.0) Seconds INR (0.9-1.1) APTT (21.0-31.0) Seconds PTT Ratio Sodium 138 (136-145) mmol/L Potassium 4.0 (3.5-5.1) mmol/L Chloride 107 (98-107) mmol/L Carbon Dioxide 28 (21-32) mmol/L Anion Gap 3 (3-11) BUN 18 (6-23) mg/dl Creatinine 0.94 (0.6-1.4) mg/dl Est Cr Clr Drug Dosing 76.6 Est GFR ( Amer) 89.6 ml/min Est GFR (Non-Af Amer) 77.3 ml/min BUN/Creatinine Ratio 19.1 (10-20) Glucose 95 (70-99(Fasting)) mg/dl Estimat Average Glucose Pending Hemoglobin A1c Pending Calcium 8.9 (8.6-10.3) mg/dl Magnesium (1.7-2.4) mg/dl Total Bilirubin (0.2-1.0) mg/dl AST (13-39) U/L ALT (7-52) U/L Alkaline Phosphatase (34-104) U/L Troponin I High Sens 6.1 (0-20) pg/ml Total Protein (6.0-8.3) gm/dl Albumin (3.4-5.0) gm/dl Globulin (2.5-4.0) gm/dl Albumin/Globulin Ratio (0.9-2) Triglycerides 199 H (0-150) mg/dl Cholesterol 218 H (0-200) mg/dl LDL Cholesterol, Calc 146 mg/dl VLDL Cholesterol, Calc 40 H (0-30) mg/dl HDL Cholesterol 32 mg/dl Cholesterol/HDL Ratio 6.8 H (0-5) Lipase (11-82) U/L 11/14/22 11/14/22 11/14/22 Range/Units 22:46 16:51 14:07 WBC (4.8-10.8) K/ul RBC (4.70-6.10) M/uL Hgb (14.0-18.0) g/dl Hct (42.0-52.0) % MCV (80.0-100.0) fL MCH (25.0-34.0) pg MCHC (32.0-36.0) g/dL RDW Std Deviation (36.4-46.3) fL RDW Coeff of Mata (11.5-14.5) % Plt Count (130-400) K/uL MPV (9.4-12.4) fL Immature Gran % (Auto) % Neut % (Auto) % Lymph % (Auto) % Cache % (Auto) % Eos % (Auto) % Baso % (Auto) % Neut # (Auto) (1.40-6.50) K/uL Lymph # (Auto) (1.2-3.4) K/uL Cache # (Auto) (0.11-0.59) K/uL Eos # (Auto) (0-0.50) K/uL Baso # (Auto) (0-0.2) K/uL Immature Gran # (Auto) (0.01-0.20) K/uL PT (9.0-12.0) Seconds INR (0.9-1.1) APTT (21.0-31.0) Seconds PTT Ratio Sodium 138 (136-145) mmol/L Potassium 4.1 (3.5-5.1) mmol/L Chloride 107 (98-107) mmol/L Carbon Dioxide 24 (21-32) mmol/L Anion Gap 7 (3-11) BUN 18 (6-23) mg/dl Creatinine 1.00 (0.6-1.4) mg/dl Est Cr Clr Drug Dosing Not Reportable Est GFR ( Amer) 83.2 ml/min Est GFR (Non-Af Amer) 71.8 ml/min BUN/Creatinine Ratio 18.0 (10-20) Glucose 139 H (70-99(Fasting)) mg/dl Estimat Average Glucose Hemoglobin A1c Calcium 9.2 (8.6-10.3) mg/dl Magnesium 2.3 (1.7-2.4) mg/dl Total Bilirubin 0.7 (0.2-1.0) mg/dl AST 18 (13-39) U/L ALT 20 (7-52) U/L Alkaline Phosphatase 89 (34-104) U/L Troponin I High Sens 7.4 6.5 7.4 (0-20) pg/ml Total Protein 7.6 (6.0-8.3) gm/dl Albumin 4.3 (3.4-5.0) gm/dl Globulin 3.3 (2.5-4.0) gm/dl Albumin/Globulin Ratio 1.3 (0.9-2) Triglycerides (0-150) mg/dl Cholesterol (0-200) mg/dl LDL Cholesterol, Calc mg/dl VLDL Cholesterol, Calc (0-30) mg/dl HDL Cholesterol mg/dl Cholesterol/HDL Ratio (0-5) Lipase 32 (11-82) U/L 11/14/22 11/14/22 Range/Units 14:07 14:07 WBC 7.80 (4.8-10.8) K/ul RBC 5.15 (4.70-6.10) M/uL Hgb 16.0 (14.0-18.0) g/dl Hct 46.1 (42.0-52.0) % MCV 89.5 (80.0-100.0) fL MCH 31.1 (25.0-34.0) pg MCHC 34.7 (32.0-36.0) g/dL RDW Std Deviation 42.7 (36.4-46.3) fL RDW Coeff of Mata 13.0 (11.5-14.5) % Plt Count 198 (130-400) K/uL MPV 9.6 (9.4-12.4) fL Immature Gran % (Auto) 0.6 % Neut % (Auto) 47.9 % Lymph % (Auto) 42.6 % Cache % (Auto) 7.3 % Eos % (Auto) 1.3 % Baso % (Auto) 0.3 % Neut # (Auto) 3.74 (1.40-6.50) K/uL Lymph # (Auto) 3.32 (1.2-3.4) K/uL Cache # (Auto) 0.57 (0.11-0.59) K/uL Eos # (Auto) 0.10 (0-0.50) K/uL Baso # (Auto) 0.02 (0-0.2) K/uL Immature Gran # (Auto) 0.05 (0.01-0.20) K/uL PT 10.9 (9.0-12.0) Seconds INR 1.0 (0.9-1.1) APTT 29.9 (21.0-31.0) Seconds PTT Ratio 1.1 Sodium (136-145) mmol/L Potassium (3.5-5.1) mmol/L Chloride (98-107) mmol/L Carbon Dioxide (21-32) mmol/L Anion Gap (3-11) BUN (6-23) mg/dl Creatinine (0.6-1.4) mg/dl Est Cr Clr Drug Dosing Est GFR ( Amer) ml/min Est GFR (Non-Af Amer) ml/min BUN/Creatinine Ratio (10-20) Glucose (70-99(Fasting)) mg/dl Estimat Average Glucose Hemoglobin A1c Calcium (8.6-10.3) mg/dl Magnesium (1.7-2.4) mg/dl Total Bilirubin (0.2-1.0) mg/dl AST (13-39) U/L ALT (7-52) U/L Alkaline Phosphatase (34-104) U/L Troponin I High Sens (0-20) pg/ml Total Protein (6.0-8.3) gm/dl Albumin (3.4-5.0) gm/dl Globulin (2.5-4.0) gm/dl Albumin/Globulin Ratio (0.9-2) Triglycerides (0-150) mg/dl Cholesterol (0-200) mg/dl LDL Cholesterol, Calc mg/dl VLDL Cholesterol, Calc (0-30) mg/dl HDL Cholesterol mg/dl Cholesterol/HDL Ratio (0-5) Lipase (11-82) U/L Diagnostic Findings Chest X-Ray 11/14/22 13:58 TWO VIEW CHEST CLINICAL HISTORY: Atypical chest pain. FINDINGS: PA and lateral chest radiographs are compared to study dated 05/18/2019. Correlation is made with chest CT dated 05/15/2019. The heart is enlarged. The pulmonary vasculature is noncongested. There is bibasilar scarring/atelectasis. The lungs and pleural spaces are clear. There is no pneumothorax. The skeletal structures are osteopenic. The bony thorax appears intact. Degenerative change is noted in the spine. IMPRESSION: Mild cardiomegaly with no active disease in the chest. ACT 112: Negative or not required by law. Electronically signed by: Miguel Roman M.D. 11/14/2022 2:25 PM PG Care Time/CCT Total # of Minutes Spent Total Time Spent with Patient: Total time spent is greater than 50% in coordination of care (as documented) at patient's floor/unit and/or counseling patient: Coding Level of Care Code 96617 SUB INP/OBS CARE 3/50MIN Diagnoses Crescendo angina I20.0 BPH with obstruction/lower urinary tract symptoms N40.1; N13.8 Hypothyroidism E03.9 Hypothyroidism type: unspecified Hypertension I10 Hypertension type: essential hypertension (3) Hypothyroidism Hypothyroidism type: unspecified Qualified Code(s): E03.9 - Hypothyroidism, unspecified (4) Hypertension Hypertension type: essential hypertension Qualified Code(s): I10 - Essential (primary) hypertension
[2022-11-15 09:05] LABS: Estimated Average Glucose 128 mg/dl; Hemoglobin A1C 6.1 % (4.5-5.6)
[2022-11-15] MEDS: ASPIRIN 81 MG ECTAB PO SCH (09:38)
[2022-11-15] MEDS: TAMSULOSIN HCL 0.4 MG CAP PO SCH (09:38)
[2022-11-15] MEDS: METOPROLOL TARTRATE 25 MG TAB PO SCH (09:38)
--- NOTE | 2022-11-15 10:30 | Cardiology Consultation ---
Date of Consultation November 15, 2022 Assessment & Plan (1) Crescendo angina: (2) Hypertension: (3) Hyperlipidemia: Plan 1. Chest pain: I believe his chest discomfort is compatible with unstable angina. It has developed and progressed over the last month, it occurs with minimal activity and it was reproduced on stress testing. There were consistent electrocardiographic changes as well. This almost certainly represents occlusive coronary artery disease. The discomfort was relieved in several minutes with sublingual nitroglycerin. We will arrange cardiac catheterization. 2. Hypertension: His blood pressure has been elevated for the most part here, he is on no outpatient blood pressure medications that I can see, in the hospital he is on metoprolol tartrate 25 mg twice a day. I am going to increase that. 3. Hyperlipidemia: His cholesterol is abnormal, he is on Zetia (although there may be some question of noncompliance in general) but depending on the results of the catheterization if he cannot tolerate a statin an injectable agent should be considered. History of Present Illness Reason for Consultation: Chest pain Attending Physician: Anival Adams MD History of Present Illness This is a 77-year-old predominantly Canadian-speaking gentleman who has a history of hyperlipidemia, hypertension, hypothyroidism on treatment who presented with exertional chest discomfort. The interview was conducted using an solderer electronic by [facility]. Evidently this started about 3 months ago with exertional chest discomfort but it has worsened over the last 3 weeks and now is happening daily. Even with walking slowly he gets exertional chest discomfort. He does report radiation to his left jaw and left arm. He describes chest pain and burning. It is relieved by rest but can last up to 30 minutes. It is associated with diaphoresis and shortness of breath. He does not have orthopnea or PND. In the past he has been treated for hypercholesterolemia but apparently has intolerance to pravastatin. He has had an echocardiogram done on August 01, 2022 where he had normal left ventricular function with mild concentric left ventricular hypertrophy and no significant valvular abnormalities. A repeat echocardiogram was done this morning, by my review of the images (formal report is pending) he has similar findings. Electrocardiograms done on presentation showed sinus rhythm with no acute changes. He did have troponin x4 on this admission which are negative. Allergies Allergy/AdvReac Type Severity Reaction Status Date / Time pravastatin AdvReac Intermediate Cramping Verified 07/31/22 13:11 of the Muscles statin Allergy Intermediate Unknown Uncoded 11/14/22 17:37 Home Medications Medication Instructions Recorded Confirmed Type omega-3 acid ethyl esters 1 gram 1 cap PO 2XWK 09/17/18 11/14/22 History capsule aspirin 81 mg tablet,delayed 81 mg PO DAILY 05/14/19 11/14/22 History release (Sarah Low Dose Aspirin) levothyroxine 75 mcg tablet 75 mcg PO DAILY #90 tabs 12/12/21 11/14/22 Rx tamsulosin 0.4 mg capsule 0.4 mg PO DAILY #90 caps 07/05/22 11/14/22 Rx ezetimibe 10 mg tablet (Zetia) 10 mg PO DAILY #30 tabs 07/31/22 11/14/22 Rx Patient History Medical History Acute respiratory failure with hypoxia Aspiration into respiratory tract Atherosclerotic heart disease of [place] coronary artery without angina pectoris Benign essential tremor BPH NOS w ur obs/LUTS CHF (congestive heart failure) Hyperlipidemia Hypertension Hypothyroidism Pneumonia Sepsis Surgical History Hx of appendectomy Hx of hernia repair Hx of transurethral resection of prostate Family History Mother Hypotension Benign essential tremor Family/Other Benign essential tremor Child Denies family history of Ovarian cancer Prostate cancer Myocardial infarction Breast cancer Colorectal cancer Social History Smoking Status: Never smoker Second Hand Exposure: No; Do You Dip or Chew Tobacco: No; Hx Alcohol Use: No Hx Substance Use: No Preferred Language: Canadian Communication Ability: Effective Communication Tools: IPad and Language Line Program Strategist Visual Impairment: No Limitations Hearing Ability: Normal Program Strategist Required: No Beliefs That Will Affect Care: None marital status: Current Living Situation: Spouse current occupational status: retired Other Information That Helps Us Care for You: No Feels Safe at Home: Yes Safety Concerns: Feels Safe At This Time Childhood Exposure to Second-Hand Smoke: No Dental Care, Regularly: Yes Physical Activity Frequency: Does not Exercise Seatbelt Use: always Sunscreen Use: No Assistive Devices: None Review of Systems Review of Systems: Due to the difficulty with a leather sorter the review of systems was confined to the cardiovascular system and is noted in the HPI. Physical Exam Physical Exam: Constitutional: Alert, cooperative and in no distress. HEENT: Unremarkable Neck: No jugular venous distention, carotid pulses are normal and equal bilaterally without bruits. Pulmonary: Clear to auscultation bilaterally. Cardiac: Regular rhythm with no murmur, gallop or rub. Abdomen: Soft, nontender with normal bowel sounds. Extremities: No edema. Distal pulses intact. Neurologic: No focal findings. Gait is steady. Skin: No rash, ecchymoses or petechiae. Results & Data Vital Signs (Past 12 Hours) Vital Signs Temp Pulse Pulse Resp BP Pulse Ox O2 Del Method 11/15/22 07:07 36.5 C 56 L 20 148/89 H 94 Room Air 11/15/22 03:17 36.5 C 53 L 16 143/77 H 94 Room Air 11/15/22 02:52 54 L 11/14/22 22:52 36.7 C 56 L 20 152/81 H 93 Room Air Laboratory Results Cardiac Enzymes 11/14/22 11/14/22 11/14/22 Range/Units 14:07 16:51 22:46 AST 18 (13-39) U/L Troponin I High Sens 7.4 6.5 7.4 (0-20) pg/ml 11/15/22 Range/Units 05:40 AST (13-39) U/L Troponin I High Sens 6.1 (0-20) pg/ml Coagulation 11/14/22 Range/Units 14:07 PT 10.9 (9.0-12.0) Seconds APTT 29.9 (21.0-31.0) Seconds Lipids 11/15/22 Range/Units 05:40 Triglycerides 199 H (0-150) mg/dl Cholesterol 218 H (0-200) mg/dl HDL Cholesterol 32 mg/dl Cholesterol/HDL Ratio 6.8 H (0-5) CBC 11/14/22 11/15/22 Range/Units 14:07 05:40 WBC 7.80 8.02 (4.8-10.8) K/ul RBC 5.15 4.92 (4.70-6.10) M/uL Hgb 16.0 15.1 (14.0-18.0) g/dl Hct 46.1 44.4 (42.0-52.0) % Plt Count 198 176 (130-400) K/uL Neut # (Auto) 3.74 4.01 (1.40-6.50) K/uL Lymph # (Auto) 3.32 3.11 (1.2-3.4) K/uL Steele # (Auto) 0.57 0.71 H (0.11-0.59) K/uL Eos # (Auto) 0.10 0.13 (0-0.50) K/uL Baso # (Auto) 0.02 0.02 (0-0.2) K/uL Comprehensive Metabolic Panel 11/14/22 11/15/22 Range/Units 14:07 05:40 Sodium 138 138 (136-145) mmol/L Potassium 4.1 4.0 (3.5-5.1) mmol/L Chloride 107 107 (98-107) mmol/L Carbon Dioxide 24 28 (21-32) mmol/L BUN 18 18 (6-23) mg/dl Creatinine 1.00 0.94 (0.6-1.4) mg/dl Glucose 139 H 95 (70-99(Fasting)) mg/dl Calcium 9.2 8.9 (8.6-10.3) mg/dl AST 18 (13-39) U/L ALT 20 (7-52) U/L Alkaline Phosphatase 89 (34-104) U/L Total Protein 7.6 (6.0-8.3) gm/dl Albumin 4.3 (3.4-5.0) gm/dl Intake and Output 11/14/22 11/15/22 11/15/22 22:59 06:59 14:59 Output Total 300 / 300 Balance -300 / -300 Output: Urine 300 / 300 Other: Other Intake Source sips Patient is NPO Weight 103 kg 103 kg Weight Measurement Method Built in [facility] Built in [facility] Diagnostic Findings A stress test was performed using the modified Damir protocol. I supervised the stress test, the report will be available later. He developed his typical symptoms of chest discomfort around 1 minute or less of exertion, this is a slow walk on flat ground, and he had inferolateral horizontal ST depression. His symptoms were compelling enough that he felt he should stop exercising. The test was therefore terminated and although he had very little heart rate change echocardiography was performed. PG Care Time/CCT Total # of Minutes Spent Total Time Spent with Patient: Total time spent is greater than 50% in coordination of care (as documented) at patient's floor/unit and/or counseling patient: Coding Level of Care Code 74226 INT INP/OBS CARE 375MIN Diagnoses Crescendo angina I20.0 Hypertension I10 Hypertension type: essential hypertension Hyperlipidemia E78.5 Hyperlipidemia type: unspecified (2) Hypertension Hypertension type: essential hypertension Qualified Code(s): I10 - Essential (primary) hypertension (3) Hyperlipidemia Hyperlipidemia type: unspecified Qualified Code(s): E78.5 - Hyperlipidemia, unspecified
[2022-11-15 10:51] LABS: Thyroid Stimulating Hormone 7.606 uIu/ml (0.300-4.500)
[2022-11-15 11:57] LABS: T4 Free Thyroxine 0.79 ng/dl (0.61-1.60)
[2022-11-15] MEDS: METOPROLOL TARTRATE 25 MG TAB PO STA ×2 (14:38→15:21)
[2022-11-15] MEDS ORDERED: NITROGLYCERIN SL 0.4 MG/TAB TAB SL STA (15:15)
[2022-11-15] MEDS: MoRPHine SULFATE 2 MG/ML CARP IV STA ×2 (15:21→15:50)
[2022-11-15] MEDS ORDERED: METOPROLOL SUCC 25MG EXT REL TAB ONE (15:23)
[2022-11-15] MEDS ORDERED: MoRPHine SULFATE 2 MG/ML CARP ONE (15:26)
[2022-11-15] MEDS ORDERED: METOPROLOL TARTRATE 50 MG TAB ONE (15:29)
[2022-11-15] MEDS ORDERED: Heparin IV Adult Wt-Based Low-Dose *NO* Bolus Protocol IV SCH (15:30)
[2022-11-15] MEDS ORDERED: HEPARIN (PORCINE) 1000 UNIT/ML 10 ML (CATH LAB USE ONLY) ONE (16:06)
[2022-11-15] MEDS ORDERED: NITROGLYCERIN/D5W 100MCG/ML 20ML SYR ONE (16:07)
[2022-11-15] MEDS ORDERED: niCARdipine HCL INJ 2.5 MG/ML 10 ML AMP ONE (16:07)
[2022-11-15] MEDS ORDERED: fentaNYL citrate PF 100 MCG/2 ML VIAL ONE (16:25)
[2022-11-15] MEDS ORDERED: MIDAZOLAM HCL 1 MG/ML 2ML VIAL ONE (16:26)
--- NOTE | 2022-11-15 17:15 | XCELERA ---
[id number]___[id number]
--- NOTE | 2022-11-15 17:36 | Electrocardiogram Report ---
Test Reason : Blood Pressure : / mmHG Vent. Rate : 066 BPM Atrial Rate : 066 BPM P-R Int : 182 ms QRS Dur : 094 ms QT Int : 434 ms P-R-T Axes : 035 -48 002 degrees QTc Int : 454 ms Normal sinus rhythm Pulmonary disease pattern Incomplete right bundle branch block Left anterior fascicular block Abnormal ECG When compared with ECG of 14-NOV-2022 14:07, No significant change was found Confirmed by Pascual Jones ([id number]) on 11/15/2022 5:35:44 PM Referred By: REFERRED SELF Confirmed By:Pascual Jones
--- NOTE | 2022-11-15 17:50 | Pre Anesthesia Assessment ---
Date of Service November 15, 2022 Pre Sedation Assessment Vital Signs Temp Pulse Pulse Resp BP BP Pulse Ox 11/15/22 15:00 65 18 125/72 92 11/15/22 14:00 69 18 127/75 95 11/15/22 12:39 66 18 140/81 94 11/15/22 11:14 36.4 C L 59 L 18 138/76 92 11/15/22 08:00 55 L 11/15/22 07:07 36.5 C 56 L 20 148/89 H 94 11/15/22 03:17 36.5 C 53 L 16 143/77 H 94 11/15/22 02:52 54 L 11/14/22 20:25 57 L 11/14/22 22:52 36.7 C 56 L 20 152/81 H 93 11/14/22 20:33 36.5 C 58 L 18 173/89 H 95 11/14/22 19:30 68 22 152/84 H 97 11/14/22 19:00 61 20 11/14/22 18:36 61 18 143/87 H 93 O2 Del Method 11/15/22 15:00 Room Air 11/15/22 14:00 Room Air 11/15/22 12:39 Room Air 11/15/22 11:14 Room Air 11/15/22 08:00 11/15/22 07:07 Room Air 11/15/22 03:17 Room Air 11/15/22 02:52 11/14/22 20:25 11/14/22 22:52 Room Air 11/14/22 20:33 Room Air 11/14/22 19:30 11/14/22 19:00 11/14/22 18:36 Room Air Cardiovascular RRR, no murmur, no edema Respiratory normal respiratory effort, lungs clear to auscultation Pre-Sedation Airway Assessment Smoking Status: Never smoker Mallampati 2 ASA 3 Notes The planned sedation has been discussed with the patient. Informed Consent was obtained. I have identified the patient, determined the appropriateness of sedation and have assessed the patient immediately prior to the procedure. All medicine(s) and interventions are by my order. [facility] Procedure Codes (Charges) Indication for Procedure Indication for procedure: Class IV angina
[2022-11-15] MEDS: HEPARIN SODIUM/DEXTROSE 25,000 UNITS/500 ML BAG IV SCH (18:05)
--- NOTE | 2022-11-15 18:08 | Post Anesthesia Assessment ---
Date of Service November 15, 2022 Post Sedation Assessment Vital Signs Temp Pulse Pulse Resp BP BP Pulse Ox 11/15/22 17:00 62 16 108/69 94 11/15/22 17:25 61 18 116/70 95 11/15/22 17:05 36.4 C L 67 18 114/72 95 11/15/22 15:00 65 18 125/72 92 11/15/22 14:00 69 18 127/75 95 11/15/22 12:39 66 18 140/81 94 11/15/22 11:14 36.4 C L 59 L 18 138/76 92 11/15/22 08:00 55 L 11/15/22 07:07 36.5 C 56 L 20 148/89 H 94 11/15/22 03:17 36.5 C 53 L 16 143/77 H 94 11/15/22 02:52 54 L 11/14/22 20:25 57 L 11/14/22 22:52 36.7 C 56 L 20 152/81 H 93 11/14/22 20:33 36.5 C 58 L 18 173/89 H 95 11/14/22 19:30 68 22 152/84 H 97 11/14/22 19:00 61 20 11/14/22 18:36 61 18 143/87 H 93 O2 Del Method O2 Flow Rate 11/15/22 17:00 Nasal Cannula 2 11/15/22 17:25 Nasal Cannula 11/15/22 17:05 Nasal Cannula 2 11/15/22 15:00 Room Air 11/15/22 14:00 Room Air 11/15/22 12:39 Room Air 11/15/22 11:14 Room Air 11/15/22 08:00 11/15/22 07:07 Room Air 11/15/22 03:17 Room Air 11/15/22 02:52 11/14/22 20:25 11/14/22 22:52 Room Air 11/14/22 20:33 Room Air 11/14/22 19:30 11/14/22 19:00 11/14/22 18:36 Room Air Recovery Score Activity: Moves 4 extremities Respiration: Deep Breath/Cough Circulation: +/-20% PreAnes Value Consciousness: Fully Awake Oxygen Saturation: > 92% On Room Air Discharge Sedation Level of Care: Fast Track Phase II Post Sedation Plan On clinical assessment, the patient appears to have tolerated the sedation without complications. Patient is recovering as anticipated. Patient will continue to be monitored by nursing and may be discharged when sedation discharge criteria are met per below protocol. Upon Completions of procedure up to 15 minutes continue every 5 minute vital signs and the P.A.R. score; then discharge to a Phase I or Fast Track to Phase II per the following guidelines: * Discharge Patient to appropriate Phase II area if PAR is 8 or greater or return to pre- procedure baseline. The post - procedure orders will be as directed. * If PAR score is less than 8 or not return to pre-procedure baseline then patient will follow Phase I monitoring till PAR is reached for Phase II. The Phase I may be done in procedure room or may call to secure a Phase I area. * If naloxone or flumazenil are used for reversal, hold in Phase I for continued monitoring from when last reversal dose was given for a minimum of 60 minutes or longer pending the nurse and/or physician discretion of patient condition before discharge to Phase II. Please call the Sedation Physician to re-evaluate and complete post-note for discharge to Phase II area. Do NOT discharge from procedure sedation or Phase 1 until post- sedation evaluation note is complete by procedure /sedation MD Sedation Discharge Instructions to be given to the patient at discharge to home. [facility] Procedure Codes (Charges) Indication for Procedure Indication for procedure: Class IV angina, abnormal stress Sedation/Anesthesia Procedure 1: Sedation/Anesthesia: 21535 Mod Sedation by the same physician;Init15 Min Child Age 5 & Up (Start time 1633, end time 1646) Total Sedation Time (minutes): 13
--- NOTE | 2022-11-15 18:28 | Cardiac Catheterization ---
[facility] Data: [employer] Cardiac Status Clinical evaluation leading to the procedure CAD Presenation: Unstable angina Anginal Classification: CCS IV Heart Failure: No Cardiogenic Shock within 24 Hours: No Cardiac Arrest within 24 Hours: No Imaging Studies Past 6 Months: Yes Stress Studies Past 6 Months: Yes Stress Echocardiogram: Yes - Positive Coronary Anatomy Dominant: Right Left Main (% Stenosis): Distal (50%) LAD (% Stenosis): Proximal (80 to 90%), Mid (Diffuse moderate) and Distal (Mild scattered) D1 (% Stenosis): Normal D2 (% Stenosis): Ostial (90%) Circumflex (% Stenosis): Proximal (80%) OM1 (% Stenosis): Proximal (70 to 80%) L PL1 (% Stenosis): Normal RCA (% Stenosis): Proximal (85 to 90%), Mid (40 to 50%) and Distal (100% chronic total occlusion) R PDA (% Stenosis): Normal (Fills via left to right collateral) R PL1 (% Stenosis): Normal (Fills via [id number] collateral) Diagnostic Physicians Name: Dharmesh Hamlin MD, PhD Closure Device Percutaneous Entry Location: Radial Closure Device: Radial Band Recommendations: Medical Therapy and/or Counseling and CABG Cardiac Cath Procedure Full Procedure Date November 15, 2022 Pre-Procedure Diagnosis Pre-Procedure Diagnosis: Angina and Positive Stress Test AUC Score AUC Score: 07 Post-Procedure Diagnosis Post-Procedure Diagnosis: Severe CAD Procedure(s) Performed Procedure(s) Performed: Coronary Angiography Supervisor Grower Dharmesh Hamlin MD, PhD Estimated Blood Loss Estimated Blood Loss: 5 mL Medication(s) Medication(s): Fentanyl, Heparin, Lidocaine 1%, Nicardipine, Nitroglycerin and Versed Summary of Findings Brief description: Patient was brought to the cardiac catheterization suite where he was shaved and prepped in a sterile fashion. Sedated using IV Versed and fentanyl. Soft tissues of the right wrist were anesthetized using 2 mL of 1% Xylocaine. The right radial artery was accessed using modified Seldinger technique and a 6 Bulgarian radial artery glide sheath was placed. Patient was provided anticoagulation with IV heparin and antispasmodics including nicardipine and nitroglycerin. All catheters were advanced and exchanged over a 0.035 J-tip wire. Left coronary angiography in orthogonal views with a 5 Bulgarian Pearblossom 4 diagnostic catheter. Right coronary angiography in orthogonal views with a 5 Bulgarian 3 DRC diagnostic catheter. Diagnostic catheters were removed. Radial artery sheath was removed. Hemostasis was obtained using the TR band. Patient was hemodynamically stable and asymptomatic. He was returned to the recovery area. This ended the case. Coronary angiography findings: LMT-this is a large caliber vessel trifurcating into LAD, circumflex, and ramus. There is distal disease of 50% which is mildly calcified. LAD-large caliber and transapical. Proximal segment has diffuse disease with up to 80 to 90% stenosis. There is ostial stenosis of 95% on the large first septal branch. There is a small caliber first diagonal which appears without significant disease. Mid LAD has long eccentric moderate stenosis. It provides a medium caliber branching second diagonal which has ostial 90% stenosis. The distal LAD has mild scattered disease. [id number] and nondominant. Proximal segment traveling in the AV groove has up to 80% narrowing. First major obtuse marginal branch has proximal diffuse 70 to 80% stenosis and branches distally. The mid AV groove circumflex becomes medium in caliber and has mild disease early. Distally the circumflex provides a medium caliber posterolateral branch and then terminates in the AV groove. The remainder of the LAD and its branches have no angiographically significant disease. Ramus-this is medium caliber with no more than mild diffuse disease. RCA-this is a large caliber dominant vessel. Proximal disease of 85 to 90%. Mid disease of 40 to 50% and then early distal 100% occlusion which is chronic. The PDA and posterolateral branches fill via left to right collateralization with retrograde filling all the way to the bifurcation of the RCA. Summary: 1. Severe multivessel coronary artery disease. The LAD, OM1, and distal RCA branches all appear adequate for coronary artery bypass grafting. The left posterolateral branch is of questionable size. 2. Guideline directed medical therapy for secondary prevention of coronary disease will include low-dose aspirin, beta-randy, and he has previously been intolerant to pravastatin. Currently only on Zetia. We should try alternative statin such as Crestor. If he fails multiple statins then consider Repatha. 3. Recommend CT surgical evaluation regarding coronary artery bypass grafting. Because of his profound symptoms and questionable stability I do recommend inpatient transfer. He will remain on a heparin drip at this time. 4. We will recommend cardiac rehabilitation postoperatively. Hemodynamics Rest Ao:: 114/62 mmHg Final Ao: 96/61 mmHg LV: Not performed Recommendations Recommendations: Medical Therapy and/or Counseling and CABG Radiation Exposure (mGy) 966 mGy, fluoroscopy time 3.5 minutes Contrast (mls) 62 mL Anesthesia 2 mg IV Versed, 50 mcg IV fentanyl. Procedural Complication(s) None Disposition Recovery Room\PACU I attest to the content of the Intraoperative Record and any orders documented therein. Any exceptions are noted below. [facility] Card Cath Procedure Codes Cardiac Catheterization Procedure 1: Cardiovascular Cath Procedures: 82500 Coronaries Moderate Sedation Procedure 1: Sedation/Anesthesia: 88596 Mod Sedation by the same physician;Init15 Min Child Age 5 & Up (Start time 1633, end time 1646) PG Care Time/CCT Total # of Minutes Spent Total Time Spent with Patient: Total time spent is greater than 50% in coordination of care (as documented) at patient's floor/unit and/or counseling patient:
[2022-11-15] MEDS: SODIUM CHLORIDE 0.9% 1,000 ML IV SCH (20:20)
[2022-11-15] MEDS: METOPROLOL TARTRATE 50 MG TAB PO SCH (21:31)
[2022-11-15] MEDS: ATORVASTATIN 40 MG TAB PO SCH (21:31)
[2022-11-16 01:37] LABS: Partial Thromboplastin Ratio 1.5
[2022-11-16 02:16] LABS: Partial Thromboplastin Time 40.9 Seconds (21.0-31.0)
[2022-11-16] MEDS: NITROGLYCERIN 2% OINTMENT 30GM TUBE EXT SCH ×3 (02:17→14:30)
[2022-11-16 06:17] LABS: Hematocrit (blood only) 43.4 % (42.0-52.0); Hemoglobin 14.8 g/dl (14.0-18.0); Mean Corpuscular Hemoglobin 30.7 pg (25.0-34.0); Mean Corpuscular Hgb Conc 34.1 g/dL (32.0-36.0); Mean Platelet Volume 9.5 fL (9.4-12.4); Platelet Count 180 K/uL (130-400); RDW Standard Deviation 42.9 fL (36.4-46.3); Red Blood Count 4.82 M/uL (4.70-6.10)
[2022-11-16] MEDS: LEVOTHYROXINE SODIUM 75 MCG TABLET PO SCH (06:23)
[2022-11-16 06:36] LABS: BUN Creatinine Ratio 17.3 (10-20); Creatinine Clr Calc Pharmacy 69.2 ml/min; Est GFR (African American) 79.3 ml/min; Est GFR (Non-African American) 68.4 ml/min; Magnesium 2.3 mg/dl (1.7-2.4)
[2022-11-16] MEDS: SODIUM CHLORIDE 0.9% 1,000 ML IV SCH (07:52)
[2022-11-16] MEDS: ASPIRIN 81 MG ECTAB PO SCH (07:56)
[2022-11-16] MEDS: TAMSULOSIN HCL 0.4 MG CAP PO SCH (07:57)
--- NOTE | 2022-11-16 08:04 | Hospitalist Progress Note ---
Date of Service November 16, 2022 Assessment & Plan (1) Crescendo angina: Plan: Very concerning history for crescendo angina, would favor cardiac catheterization rather than further stress test but will leave final decision to cardiology TTE ASA 324mg PO given in ER, continued on 81mg PO daily, started metoprolol, lipitor 40mg HS Nitro paste Cardiology consulted troponin negative x 4, no CP reported overnight 11/14-, however +stress testing and cardiology consulted/NPO for cath. 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 Morphine, nitro SL x 1 provided. Declined dose of morphine. Placed on heparin gtt while awwaiting cath A1c 6.1m unchanged from May. Lipid panel is improved compared to prior (TRG 396--> 199, Chol 289--> 218, LDL 175--> 146. HDL about the same at 32) Prior only on Zetia -->Started on lipitor 40mg HS If unable to tolerate any PO statin, injectable agent to be considered but appears to be tolerating the atorvastatin at present. Metoprolol increased to 50mg BID (had not gotten evening dose or this morning due to HR to 50/60s to note) Cardiac catheterization 11/[address] Boubacar Hamlin "Summary: 1. Severe multivessel coronary artery disease. The LAD, OM1, and distal RCA branches all appear adequate for coronary artery bypass grafting. The left posterolateral branch is of questionable size. 2. Guideline directed medical therapy for secondary prevention of coronary disease will include low-dose aspirin, beta-randy, and he has previously been intolerant to pravastatin. Currently only on Zetia. We should try alternative statin such as Crestor. If he fails multiple statins then consider Repatha. 3. Recommend CT surgical evaluation regarding coronary artery bypass grafting. Because of his profound symptoms and questionable stability I do recommend inpatient transfer. He will remain on a heparin drip at this time. 4. We will recommendcardiac rehabilitationpostoperatively." Continue metoprolol BID as ordered, increased by Dr Jones 11/15 (noting patient had held for parameters, instructed to give dose yesterday afternoon awaiting cath and again ok'd to provide this morning given cath results -- has been sinus/sinus jules 50-60s on monitor. no block/pauses Ordered morphine IV now for pain, pepcid for reflux related pain as well w/ reported improvement. Had been having CP while active/getting dressed. Discussed limiting activity for now , awaiting transfer to [facility], who Dr Hamlin spoke with last evening, Dr Rodríguez and awaiting bed at present. 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: Plan: Continue tamsulosin, denies issues voiding (3) Hypothyroidism: Plan: Continue levothyroxine 75mcg daily - TSH 7.6, but free T4 not low --> suspect not taking regularly previously given last picked up in November 2021 (however reports current compliance -- see PCP notes w/ similar concerns/compliance) Rec repeat TFT w/ PCP/adjustments to Synthroid if improvement on compliance to avoid overtreating at present (4) Hypertension: Plan: Elevated on admission, not on any medications at home Started nitroglycerin 1 inch paste Metoprolol as above, increased to 50mg BID per cardiology-> BP presently 159/71 and monitoring Plan continued inpatient stay awaiting transfer to [facility] when bed available. Orders for chart copy/burn CD placed. Paperwork on front of chart. Admission and Anticipated Discharge Date Admission Date: November 14, 2022 Supervising Physician Co-Signing Physician Notes The patient was not seen by me. The chart was reviewed. Case discussed with TIM Prince. Agree with assessment and plan Subjective Evaluated this morning, planning for transfer to [place] when bed available for CABG. at bedside. Restaurant Mgr pad utilized. Reporting some pain to his chest when getting dressed/putting socks on this morning, improving at rest but then occurred at end of exam. Discussed having nursing provide dose of morphine as well as pepcid IVP for reflux burning as well. Noted tremor - has been present for 2-3 years per patient. Can have neuro f/u once returned from CABG. Order for copy chart/burn CD and paperwork placed on front of chart. Hopefully will have bed later today vs early childhood tomorrow. Questions/concerns addressed at this time. Denied any other symptoms wanting to be discussed at present. Physical Exam Physical Exam: General: WD/WN obese male sitting up in bed, at bedside, NAD HEENT: head normocephalic, atraumatic, mm slightly dry, trachea midline Resp: CTA, no w/c/r, slightly diminished in the bases, on room air 94% Chest: nontender to palpation (but reporting pain under L breast in area of "chest pain") CV: RRR, no significant mrg, no pitting edema/calf tenderness GI: +BS, soft/NT Neuro/MSK: no focal deficits, tremor (action, reported for last 2-3 years) Psych: AOx3, cooperative Results & Data Results & Data Vital Signs (Past 12 Hours) Vital Signs Temp Pulse Pulse Resp BP Pulse Ox O2 Del Method 11/16/22 03:44 36.4 C L 58 L 16 128/75 93 Room Air 11/15/22 22:44 36.5 C 64 16 127/76 93 Room Air 11/15/22 21:44 62 17 149/74 H 94 Room Air 11/15/22 20:44 61 16 152/71 H 93 Room Air Laboratory Results 11/16/22 11/16/22 11/16/22 Range/Units 05:53 05:53 00:27 WBC 8.10 (4.8-10.8) K/ul RBC 4.82 (4.70-6.10) M/uL Hgb 14.8 (14.0-18.0) g/dl Hct 43.4 (42.0-52.0) % MCV 90.0 (80.0-100.0) fL MCH 30.7 (25.0-34.0) pg MCHC 34.1 (32.0-36.0) g/dL RDW Std Deviation 42.9 (36.4-46.3) fL RDW Coeff of Mata 13.0 (11.5-14.5) % Plt Count 180 (130-400) K/uL MPV 9.5 (9.4-12.4) fL APTT 40.9 H* (21.0-31.0) Seconds PTT Ratio 1.5 Sodium 137 (136-145) mmol/L Potassium 4.0 (3.5-5.1) mmol/L Chloride 104 (98-107) mmol/L Carbon Dioxide 28 (21-32) mmol/L Anion Gap 5 (3-11) BUN 18 (6-23) mg/dl Creatinine 1.04 (0.6-1.4) mg/dl Est Cr Clr Drug Dosing 69.2 ml/min Est GFR ( Amer) 79.3 ml/min Est GFR (Non-Af Amer) 68.4 ml/min BUN/Creatinine Ratio 17.3 (10-20) Glucose 104 H (70-99(Fasting)) mg/dl Estimat Average Glucose mg/dl Hemoglobin A1c (4.5-5.6) % Calcium 9.0 (8.6-10.3) mg/dl Magnesium 2.3 (1.7-2.4) mg/dl TSH (0.300-4.500) uIu/ml Free T4 (0.61-1.60) ng/dl 11/15/22 11/15/22 Range/Units 05:40 05:40 WBC (4.8-10.8) K/ul RBC (4.70-6.10) M/uL Hgb (14.0-18.0) g/dl Hct (42.0-52.0) % MCV (80.0-100.0) fL MCH (25.0-34.0) pg MCHC (32.0-36.0) g/dL RDW Std Deviation (36.4-46.3) fL RDW Coeff of Mata (11.5-14.5) % Plt Count (130-400) K/uL MPV (9.4-12.4) fL APTT (21.0-31.0) Seconds PTT Ratio Sodium (136-145) mmol/L Potassium (3.5-5.1) mmol/L Chloride (98-107) mmol/L Carbon Dioxide (21-32) mmol/L Anion Gap (3-11) BUN (6-23) mg/dl Creatinine (0.6-1.4) mg/dl Est Cr Clr Drug Dosing ml/min Est GFR ( Amer) ml/min Est GFR (Non-Af Amer) ml/min BUN/Creatinine Ratio (10-20) Glucose (70-99(Fasting)) mg/dl Estimat Average Glucose 128 mg/dl Hemoglobin A1c 6.1 H (4.5-5.6) % Calcium (8.6-10.3) mg/dl Magnesium (1.7-2.4) mg/dl TSH 7.606 H (0.300-4.500) uIu/ml Free T4 0.79 (0.61-1.60) ng/dl PG Care Time/CCT Total # of Minutes Spent Total Time Spent with Patient: Total time spent is greater than 50% in coordination of care (as documented) at patient's floor/unit and/or counseling patient: Coding Level of Care Code 42502 SUB INP/OBS CARE 3/50MIN Diagnoses Crescendo angina I20.0 BPH with obstruction/lower urinary tract symptoms N40.1; N13.8 Hypothyroidism E03.9 Hypothyroidism type: unspecified Hypertension I10 Hypertension type: essential hypertension (3) Hypothyroidism Hypothyroidism type: unspecified Qualified Code(s): E03.9 - Hypothyroidism, unspecified (4) Hypertension Hypertension type: essential hypertension Qualified Code(s): I10 - Essential (primary) hypertension
[2022-11-16] MEDS: METOPROLOL TARTRATE 50 MG TAB PO SCH (09:55)
[2022-11-16] MEDS ORDERED: MoRPHine SULFATE 2 MG/ML CARP IM PRN (11:16)
[2022-11-16] MEDS ORDERED: FAMOTIDINE 20 MG in SYRINGE 3 ML IV ONE (11:30)
--- NOTE | 2022-11-16 13:38 | XCELERA ---
[id number]
--- NOTE | 2022-11-16 13:58 | Discharge Summary ---
Date of Service November 16, 2022 Admission HPI Per Admitting Provider Fidel Holden is a 77 year old male who presents to the ER with crescendo exertional chest pain concerning for unstable angina. 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 3 months of exertional substernal chest pain much worse over the last three weeks when it has been happening daily. Now walking more slowly otherwise he would get chest pain. Relived with rest but seldom will occur at rest. Lasting up to 30 minutes. Associated diaphoresis and shortness of breath. No palpitations, orthopnea, paroxysmal nocturnal dyspnea or leg swelling. Most severe pain 2 days ago. Radiation to his left jaw and arm. No acid taste in his mouth. No previous history of heart attacks. Generally non compliant with medications but more recently he has been better taking his levothyroxine and tamsulosin. Did not take aspirin fo the last three days. Known high cholesterol with chart reports previous intolerance to pravastatin although he is unable to remember being on this. Chest pain last occurred while walking to his room from triage. Initially reported ongoing constant left arm pain but on further clarification with the wall worker he denies any chest pain or right arm pain when seen as was advised to let his nurses know if this recurs. Admission Exam Per Admitting Provider Constitutional: WD/WN, vitals as above ENMT: external ear and nose normal, oropharynx normal Respiratory: normal respiratory effort, lungs clear to auscultation Cardiovascular: RRR, no murmur, no edema Gastrointestinal (Abdomen): normal bowel sounds, soft, nontender, no hepatosplenomegaly Musculoskeletal: no cyanosis or clubbing, extremities motor strength 5/5 Skin: no rashes, warm and dry Neurologic: moves all extremities and awake; not confused Psychiatric: Orientation: alert and oriented x 3 Genitourinary: no CVA tenderness Principal Diagnosis Severe CAD requiring CABG Discharge Exam General: WD/WN obese male sitting up in bed, at bedside, NAD HEENT: head normocephalic, atraumatic, mm slightly dry, trachea midline Resp: CTA, no w/c/r, slightly diminished in the bases, on room air 94% Chest: nontender to palpation (but reporting pain under L breast in area of "chest pain") CV: RRR, no significant mrg, no pitting edema/calf tenderness GI: +BS, soft/NT Neuro/MSK: no focal deficits, tremor (action, reported for last 2-3 years) Psych: AOx3, cooperative Discharge Data Allergies Allergy/AdvReac Type Severity Reaction Status Date / Time pravastatin AdvReac Intermediate Cramping Verified 07/31/22 13:11 of the Muscles statin Allergy Intermediate Unknown Uncoded 11/14/22 17:37 Consultations 11/14/22 15:39 ED Decision to Admit Stat 11/14/22 20:11 Consult Cardiology Routine 11/16/22 11:04 Burn CD for patient Routine Procedures Performed Operation Date: 11/15/22 14:00 Actual Procedures p Cath, Left with Cors and Vent - Dharmesh Hamlin MD, PhD Ordered Studies 11/15/22 16:13 CL Cath Imgs for PACS use only Routine Chest X-Ray 11/14/22 13:58 TWO VIEW CHEST CLINICAL HISTORY: Atypical chest pain. FINDINGS: PA and lateral chest radiographs are compared to study dated 05/18/2019. Correlation is made with chest CT dated 05/15/2019. The heart is enlarged. The pulmonary vasculature is noncongested. There is bibasilar scarring/atelectasis. The lungs and pleural spaces are clear. There is no pneumothorax. The skeletal structures are osteopenic. The bony thorax appears intact. Degenerative change is noted in the spine. IMPRESSION: Mild cardiomegaly with no active disease in the chest. ACT 112: Negative or not required by law. Electronically signed by: Miguel Roman M.D. 11/14/2022 2:25 PM Hospital Course (1) Crescendo angina: Very concerning history for crescendo angina, would favor cardiac catheterization rather than further stress test but will leave final decision to cardiology TTE ASA 324mg PO given in ER, continued on 81mg PO daily, started metoprolol, lipitor 40mg HS Nitro paste Cardiology consulted troponin negative x 4, no CP reported overnight 11/14-, however +stress testing and cardiology consulted/NPO for cath. AND DID REPORT ongoing pain while in label folder waiting. Morphine, nitro SL x 1 provided. Declined dose of morphine. Placed on heparin gtt while awwaiting cath A1c 6.1m unchanged from May. Lipid panel is improved compared to prior (TRG 396--> 199, Chol 289--> 218, LDL 175--> 146. HDL about the same at 32) Prior only on Zetia -->Started on lipitor 40mg HS If unable to tolerate any PO statin, injectable agent to be considered but appears to be tolerating the atorvastatin at present. Metoprolol increased to 50mg BID (had not gotten evening dose or this morning due to HR to 50/60s to note) Cardiac catheterization 11/[address] Hamlin "Summary: 1. Severe multivessel coronary artery disease. The LAD, OM1, and distal RCA branches all appear adequate for coronary artery bypass grafting. The left posterolateral branch is of questionable size. 2. Guideline directed medical therapy for secondary prevention of coronary disease will include low-dose aspirin, beta-randy, and he has previously been intolerant to pravastatin. Currently only on Zetia. We should try alternative statin such as Crestor. If he fails multiple statins then consider Repatha. 3. Recommend CT surgical evaluation regarding coronary artery bypass grafting. Because of his profound symptoms and questionable stability I do recommend inpatient transfer. He will remain on a heparin drip at this time. 4. We will recommendcardiac rehabilitationpostoperatively." Continue metoprolol BID as ordered, increased by Dr Jones 11/15 (noting patient had held for parameters, instructed to give dose yesterday afternoon awaiting cath and again ok'd to provide this morning given cath results -- has been sinus/sinus jules 50-60s on monitor. no block/pauses Ordered morphine IV now for pain, pepcid for reflux related pain as well w/ reported improvement. Had been having CP while active/getting dressed. Discussed limiting activity for now, awaiting transfer to [facility], who Dr Hamlin spoke with last evening, Dr Rodríguez and awaiting bed at present. Remains on heparin gtt in meantime/PCU telemetry monitoring Bed received this afternoon, room 3125. Transportation being arranged. 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 Last rx picked up in November 2021 however patient does report compliance. Continued compliance recommended and rec repeating TFT with PCP once recovered from his CABG/adjustments if continues to remain elevated (4) Hypertension: Elevated on admission, not on any medications at home Started nitroglycerin 1 inch paste for above, metoprolol Metoprolol increased to 50mg BID per cardiology-> BP presently 159/71 Plan Awaiting transfer to [facility] for CABG Orders for copy chart/burn CD placed. Paperwork on front of chart for transfer to [facility], room 3125 when transportation arranged Total Time Total Time Spent Total Time Spent (In Minutes): 45 Discharge Plan Discharge Items Patient Disposition: Transfer Acute Care Hospital Reason For Visit: CRESCENDO ANGINA Discharge Diagnosis: Severe coronary artery disease Goals: You have been hospitalized for an acute medical problem. During your stay at [facility], we have made an effort to correct the problem that brought you to the hospital while keeping you as comfortable as possible. Medications were used to bring your condition under control and your discharge instructions will include directions for any medications you should take after leaving the hospital. Please make sure you see your Primary Care Provider as part of your follow up plan. Activity: As commented below Non-emergency contact: Primary Care Provider and Motor Vehicle Licence Examiner Call non-emergency contact if: you have any medication questions Follow-up/Referrals: Dharmesh Hamlin MD, PhD [Physician] - Pro,Kalyan Smith MD [Primary Care Provider] - Diet: Carb Consistent or DM2 and Heart Healthy Addtl Attending Provider Instructions: You have been hospitalized for ongoing chest pain. Unfortunately, cardiology evaluated you and you had a cardiac catheterization to look at the vessels to the heart and it showed significant disease and recommendation as discussed is for transfer for a CABG to restore blood flow to the heart. Arrangements have been made for transfer to [place] to have this done and you will be able to follow up locally after discharge. It has been a pleasure being a part of the medical team providing for you while you have been in the hospital. I wish you the best! Pending Studies at Discharge: No Stand-Alone Forms: My [facility] Skilled Items Patient informed of condition?: Yes DNR: No Discharge Level of Care: Other Communicable Disease: No Discharge Prognosis: Stable Lines: Peripheral IV Urinary Catheter: No Medications and DC Order Prescriptions: New atorvastatin 40 mg Tablet 40 mg PO QPM Qty: 30 0RF metoprolol tartrate 50 mg Tablet 50 mg PO BID Qty: 60 0RF Continued tamsulosin 0.4 mg capsule 0.4 mg PO DAILY Qty: 90 3RF Rx Instructions: filled 07/05/22 for 90 day supply. ezetimibe [Zetia] 10 mg tablet 10 mg PO DAILY Qty: 30 2RF Rx Instructions: filled 09/25/22 for 30 days levothyroxine 75 mcg tablet 75 mcg PO DAILY Qty: 90 3RF Rx Instructions: This has not been filled since 2021. SPOUSE DENIES TAKING THIS MED. omega-3 acid ethyl esters 1 gram capsule 1 cap PO 2XWK aspirin [Sarah Low Dose Aspirin] 81 mg Tablet,Delayed Release (Dr/Ec) 81 mg PO DAILY Discharge Orders: Discharge Order (Routine); Ordered 11/16/22 Ordered By: Susan Jain/Other Patient Handouts: Prediabetes, 5 Steps for Eating Healthier Admission Data Admit Date/Time: 11/14/22 17:36 Attending Provider: Anival Adams Admit Provider: Henrique Holliday Primary Care Provider: Kalyan Andrade Other Providers: Henrique Holliday ; Nestor Brush Supervising Physician Co-Signing Physician Notes The patient was not seen by me. The chart was reviewed. Case discussed with TIM Prince. Agree with assessment and plan Coding Level of Care Code 49141 INP/OBS DISCH >30 MIN Diagnoses Crescendo angina I20.0 BPH with obstruction/lower urinary tract symptoms N40.1; N13.8 Hypothyroidism E03.9 Hypothyroidism type: unspecified Hypertension I10 Hypertension type: essential hypertension
[2022-11-16 15:58] LABS: Partial Thromboplastin Ratio 1.4; Partial Thromboplastin Time 38.6 Seconds (21.0-31.0)
--- NOTE | 2022-11-16 17:13 | Cardiology Progress Note ---
Date of Service November 16, 2022 Assessment & Plan (1) Hypertension: Plan: Blood pressure is above target. Currently on metoprolol tartrate 50 mg p.o. twice daily. Recommend add CARLTON inhibitor or angiotensin receptor randy given diabetes, mild renal dysfunction, and coronary disease. (2) Hyperlipidemia: Plan: Patient is high risk. High intensity statin therapy recommended. His LDL untreated was 146 mg/dL. Target LDL reduction will therefore be 73 mg/dL. Continue atorvastatin 40 mg daily. (3) Coronary artery disease with angina pectoris: Plan: Severe multivessel coronary artery disease. We have kept him on a heparin drip and he has had no further angina. We are awaiting transfer to [facility] for coronary artery bypass grafting. We will continue to optimize his medical therapy. Anticipate transfer later today or tomorrow. His films will be sent overnight and will be reviewed by cardiac surgery once they are. (4) Hypothyroidism: Plan: TSH is very elevated. Recommend initiation of thyroid hormone replacement per [facility] team. (5) Diabetes: Plan: Hemoglobin A1c was 6.1. Treatment per internal medicine. Plan Plan for ambulance transfer to [facility]. Primary team is coordinating. Awaiting room assignment. Admission and Anticipated Discharge Date Admission Date: November 14, 2022 Subjective Patient without ongoing chest pain. Has tolerated his catheterization fairly well. He has been accepted for transfer at [facility] by cardiac surgery. Awaiting bed assignment and then he will be transferred. The cardiac cath and echo discs have been overnighted to [facility] cardiac surgery. Review of Systems Review of Systems: Negative Physical Exam Constitutional: WD/WN, vitals as above Respiratory: normal respiratory effort, lungs clear to auscultation Cardiovascular: Regular rate and rhythm. S4 gallop. No rubs or murmurs. No edema Musculoskeletal: no cyanosis or clubbing, extremities motor strength 5/5 (Radial access clean dry and intact) Neurologic: No focal deficits. Baseline tremor Psychiatric: A+Ox3, euthymic affect Results & Data Vital Signs (Past 12 Hours) Vital Signs Temp Pulse Pulse Pulse Resp BP BP 11/16/22 15:48 37 C 62 18 145/75 H 11/16/22 14:06 58 L 11/16/22 15:26 36.6 C 62 61 18 159/71 H 126/71 11/16/22 11:19 36.6 C 61 18 159/71 H 11/16/22 07:15 56 L 11/16/22 08:05 36.5 C 63 19 152/89 H Pulse Ox O2 Del Method 11/16/22 15:48 94 Room Air 11/16/22 14:06 11/16/22 15:26 94 11/16/22 11:19 94 Room Air 11/16/22 07:15 11/16/22 08:05 96 Room Air PG Care Time/CCT Total # of Minutes Spent Total Time Spent with Patient: Total time spent is greater than 50% in coordination of care (as documented) at patient's floor/unit and/or counseling patient: Coding Level of Care Code 46554 SUB INP/OBS CARE 3/50MIN Diagnoses Hypertension I10 Hypertension type: essential hypertension Hyperlipidemia E78.5 Hyperlipidemia type: unspecified Coronary artery disease with angina pectoris I25.119 Hypothyroidism E03.9 Hypothyroidism type: unspecified Diabetes E11.9 (1) Hypertension Hypertension type: essential hypertension Qualified Code(s): I10 - Essential (primary) hypertension (2) Hyperlipidemia Hyperlipidemia type: unspecified Qualified Code(s): E78.5 - Hyperlipidemia, unspecified (4) Hypothyroidism Hypothyroidism type: unspecified Qualified Code(s): E03.9 - Hypothyroidism, unspecified
[2022-11-16] MEDS: HEPARIN SODIUM/DEXTROSE 25,000 UNITS/500 ML BAG IV SCH (17:31)
[2022-11-17] MEDS ORDERED: LOSARTAN POTASSIUM 25 MG TAB PO SCH (09:00)
[2022-11-17] MEDS ORDERED: FAMOTIDINE 20 MG in SYRINGE 3 ML IV SCH (09:00)
== END 2022-11-16 19:13 | disposition short-term general hospital (02) ==
LOC: ED 13:49 → 2S 13:49 → SUATTDRO 17:36 → 2S 19:45
PROC: CLB.CCO (2022-11-15 14:00)